=== PATIENT | female | born 1945 | race Caucasian/White ===

== ENCOUNTER 2017-09-29 07:47 | Observation (INO) | payer MEDICARE ==
[~2017-09-29] VITALS: Ht 162.6 cm; Wt 75.8 kg
[2017-09-29] MEDS: IPRATROPIUM BROMIDE 0.02% 2.5 ML NEB NEB SCH ×4 (01:30→19:00)
[~2017-09-29 07:47] MED LIST: COUMADIN5 MG PO; METOPROLOL SUCC25 MG PO; OMEPRAZOLE40 MG PO; SIMVASTATIN20 MG PO; SIMVISTATIN
[2017-09-29 08:15] LABS: BASOPHILS % 0.3 % (0.0-1.0); EOSINOPHILS # (AUTO) 0.1 (0.0-0.4); EOSINOPHILS % 1.3 % (0.0-6.0); HEMATOCRIT 41.5 % (34.2-44.1); HEMOGLOBIN 13.5 g/dL (12.0-16.0); LYMPHOCYTES # (AUTO) 1.8 (1.0-3.2); LYMPHOCYTES % 23.1 % (18.0-39.1); MEAN CORPUSCULAR HEMOGLOBIN 29.7 pg (28-32); MEAN CORPUSCULAR HGB CONC 32.5 g/dL (31-35); MEAN CORPUSCULAR VOLUME 91.2 fL (81-99); MONOCYTES # (AUTO) 0.5 (0.2-0.8); MONOCYTES % 6.7 % (4.4-11.3); NEUTROPHILS # (AUTO) 5.2 (2.1-6.9); NEUTROPHILS % 68.5 % (38.7-80.0); PLATELET COUNT 160 x10e3/uL (140-360); RED BLOOD COUNT 4.55 x10e6/uL (3.6-5.1); RED CELL DISTRIBUTION WIDTH 14.6 % (11.7-14.4)
[2017-09-29 08:26] LABS: INR 2.51; PROTHROMBIN TIME 28.4 seconds (11.9-14.5)
[2017-09-29 08:27] LABS: PARTIAL THROMBOPLASTIN TIME 40.8 seconds (23.8-35.5)
[2017-09-29 08:32] LABS: ANION GAP 12.9 mmol/L (8-16); BLOOD UREA NITROGEN 10 mg/dL (7-26); BUN/CREATININE RATIO 13 (6-25); CALCIUM 9.2 mg/dL (8.4-10.2); CARBON DIOXIDE 23 mmol/L (22-29); CHLORIDE 110 mmol/L (98-107); CREATINE KINASE 58 IU/L (29-168); CREATININE, SERUM 0.78 mg/dL (0.57-1.11); EST GLOMERULAR FILTRATION RATE > 60 ML/MIN (60-); GLUCOSE 100 mg/dL (74-118); POTASSIUM 3.9 mmol/L (3.5-5.1); SODIUM 142 mmol/L (136-145)
[2017-09-29 08:39] LABS: TROPONIN I 0.017 ng/mL (0-0.300)
[2017-09-29 08:41] LABS: BILIRUBIN,URINE NEGATIVE (NEGATIVE); KETONES,URINE NEGATIVE (NEGATIVE); LEUKOCYTE ESTERASE ,URINE NEGATIVE (NEGATIVE); NITRITE,URINE NEGATIVE (NEGATIVE); PROTEIN,URINE DIPSTICK NEGATIVE (NEGATIVE); URINE UROBILINOGEN 0.2 mg/dL (0.2 - 1)
[2017-09-29 09:08] LABS: CLARITY,URINE HAZY (CLEAR); COLOR,URINE YELLOW (YELLOW)
[2017-09-29 09:18] LABS: EPITHELIAL CELLS,URINE RARE /LPF; RBC,URINE 0-5 /HPF (0-5)
--- NOTE | 2017-09-29 09:41 | Diagnostic Imaging Report ---
PROCEDURE: Frontal and lateral views of the chest. COMPARISON: CT chest 09/04/2017. INDICATIONS: CHEST CONGESTION, SHORTNESS OF BREATH FINDINGS: Lines/tubes: None. Lungs: Bibasilar airspace opacities. No parenchymal mass. Pleura: There is no pleural effusion or pneumothorax. Heart and mediastinum: The heart and the mediastinum are normal. Atherosclerotic calcifications. Bones: No acute bony abnormality. Degenerative changes of the thoracic spine. Median sternotomy wires. IMPRESSION: Bibasilar airspace opacities may represent a developing pneumonia. Dictated by: Malachi Larsen M.D. on 09/29/2017 at 8:59 Electronically approved by: Malachi Larsen M.D. on 09/29/2017 at 8:59
[2017-09-29] MEDS ORDERED: AZITHROMYCIN 500MG/SOD CHL 0.9% 250ML BAG IV SCH (10:00)
[2017-09-29] MEDS ORDERED: CEFTRIAXONE SOD 1 GM VIAL IV SCH (10:30)
[2017-09-29] MEDS ORDERED: AZITHROMYCIN 500MG/NS 250 ML 250 ML IV SCH ×2 (11:00→11:15)
[2017-09-29] MEDS: AZITHROMYCIN 500MG/NS 250 ML 250 ML IV SCH (11:50)
[2017-09-29] MEDS: CEFTRIAXONE SOD 1 GM VIAL IV SCH (11:50)
[2017-09-29] MEDS: SODIUM CHLORIDE 0.9% 1000ML 1,000 ML IV SCH ×2 (11:50→17:27)
[2017-09-29] MEDS: ALBUTEROL SULF 0.083% NEB SOLN 3 ML NEB NEB SCH ×4 (12:16→23:30)
--- NOTE | 2017-09-29 14:28 | History and Physical ---
REASON FOR ADMISSION: This 72-year-old female comes with shortness of breath. HISTORY OF PRESENT ILLNESS: Ms. Essie Elmore has a history of coronary disease, atrial fibrillation, history of end-stage lung disease. She was in her usual state of health until last night. The patient started to have some increased shortness of breath and came to the hospital and was admitted for possible pneumonia or ILD. PAST MEDICAL HISTORY 1. History of atrial fibrillation. 2. History of coronary artery disease. 3. History of hypertension. 4. History of reflux esophagitis. 5. History of end-stage lung disease. Has been treated by Dr. Marinelli and Dr. Frankel, too. MEDICATIONS 1. Metoprolol 25 mg ER once a day. 2. Omeprazole 40 mg daily. 3. Simvastatin 20 mg daily. 4. Warfarin 5 mg daily. SURGICAL HISTORY: History of triple bypass for NC, also history of stent to the left femoral artery. The patient had a triple bypass in 1998, also fem-pop as mentioned above. REVIEW OF SYSTEMS: Negative for chest pain. Positive for some shortness of breath. Positive for no nausea or vomiting, no diarrhea, no constipation, no rectal bleeding. No hematochezia and no hematemesis either. SOCIAL HISTORY: No EtOH. No IV drug abuse. No smoking history, either. PHYSICAL EXAMINATION GENERAL: The patient is alert and oriented times 3. Not short of breath. She is doing fine right now. VITAL SIGNS: Temperature 97.8, pulse 93, respirations 16, blood pressure 129/79, pulse oximetry 92%. HEENT: Normocephalic and atraumatic. The pupils are reacting to light and accommodation. CV: S1 and S2 normal, regular rate and rhythm. ABDOMEN: Nontender and nondistended. LUNGS: Positive for crackles in the lower bases. EXTREMITIES: No clubbing, no cyanosis, no edema. LABORATORY VALUES: Hematology: White count was 7.63, RDW 14.6. Chemistry: Sodium 142, potassium 3.9, chloride 110. BNP was 244.3. BUN and creatinine within normal limits. Urine was also normal. Serology showed influenza type A and type B negative. ASSESSMENT: Questionable interstitial lung disease. History of questionable pneumonia. Will treat the patient as pneumonia. I have started the patient on azithromycin and Rocephin. Needs outpatient bronchoscopy. Will continue to monitor the patient here. medications have been stopped. Further recommendations per the clinical course. Will restart all other medications. Warfarin for atrial fibrillation. Also do PT and INR daily. Job#: [id number] MH
--- NOTE | 2017-09-29 14:55 | Consultation ---
DATE OF CONSULTATION: September 29, 2017 PULMONARY CONSULTATION REASON FOR CONSULTATION: Shortness of breath. HPI: Ms. Elmore is a 72-year-old female. She is a regular patient of Dr. Marinelli for possibility of interstitial lung disease. She presented to the emergency room with the complaints of shortness of breath getting worse overnight associated with nasal stuffiness and coughing. Patient has undiagnosed ILD and was mosaic pattern on the CT scan with lymphadenopathy, which is being worked up as an outpatient. She was supposed to see me for of the lymph node next week. She denies any chest pain, nausea, vomiting, diarrhea, or focal weakness. REVIEW OF SYSTEMS GENERAL: Denies any fever or chills. HEENT: Head: Denies any head trauma or head injury. ENT: Denies any earache, nosebleed or throat pain. CV: Denies any chest pain. RESPIRATORY: The patient has shortness of breath. GI: Denies any nausea or vomiting. MUSCULOSKELETAL: Denies any arthralgias or myalgias. NEURO: Denies any focal weakness. Rest of the review of systems are negative except as in HPI. PAST MEDICAL HISTORY: Per the chart. 1. History of atrial fibrillation. Patient had a recent stress test and metoprolol was increased. 2. Hypertension. 3. Hyperlipidemia. 4. Coronary artery disease. FAMILY HISTORY: Coronary artery disease, status post CABG in 1998. Stents in the iliac artery in July 1999. PAST SURGICAL HISTORY: Cholecystectomy in December of 2010. SOCIAL HISTORY: She does not smoke. Does not drink. She lives with her daughter. PHYSICAL EXAMINATION VITAL SIGNS: Temperature 97.8, pulse 93, blood pressure 135/86, and O2 sat 96% on room air. SKIN: Warm and dry. GENERAL: She is an elderly female in mild respiratory distress. She is awake, alert and following commands. Responds to questions appropriately. HEENT: Head is atraumatic and normocephalic. Pupils are reactive. NECK: Supple with no JVD. CHEST: Crackles in the bases. HEART: S1 and S2 audible. ABDOMEN: Soft, nontender and nondistended. EXTREMITIES: No clubbing, cyanosis or edema. NEUROLOGIC: Awake and alert. LABS: White count of 7.6, hemoglobin 13.5 and platelets 160,000. Chemistry: Sodium 142, potassium 3.9, chloride 110, bicarb 23, BUN 10, creatinine 0.78. BNP is only 244. Chest x-ray done today showing right middle lobe infiltrate. Her previous chest x-ray is from 2010, which is normal. She had a CT of the chest done on September 04, 2017, which is showing mosaic pattern and evidence of some fibrosis, not classic UIP pattern with right lower paratracheal lymphadenopathy. I have compared that film to the CT of the chest, which was done in January of 2016. It is also showing mosaic pattern in the right lower paratracheal lymph note, but not significantly enlarged. ASSESSMENT AND PLAN: Ms. Elmore is a 72-year-old female presenting with worsening shortness of breath and cough. She has underlying interstitial lung disease. I have reviewed the computerized tomography of the chest films from 2014 up until now, and she has a mosaic pattern and evidence of fibrosis, which is not classic UIP. This has for the most part remained changed. However, there is new lymph nodes and lymphadenopathy, which is there. At this point, it seems like that the patient probably has a superimposed pneumonia on her interstitial lung disease. She lives at home. CURRENT PROBLEMS 1. Likely community-acquired pneumonia superimposed on baseline interstitial lung disease. 2. Mediastinal lymphadenopathy: The differential in this pattern could be sarcoidosis. 3. History of coronary artery disease. 4. Atrial fibrillation, currently stable. 5. Remote history of coronary artery bypass graft. PLAN 1. Agree with IV Rocephin and azithromycin to cover community-acquired pneumonia. 2. I will discontinue the IV fluids. 3. Nebulizer treatment. 4. Possibly will be giving a low-dose of Lasix to her as her BNP is slightly on the higher side and she may have some fluid overload. 5. Once she is improved, she can be discharged home. I will do a biopsy and endobronchial ultrasound-guided biopsy at [facility] at a later date. Plan was discussed with Dr. Clinton, who is the primary care physician taking care of the patient. Thank you for this consult. Job#: [id number] CRAIG
[2017-09-29 19:43] VITALS: BP 141/93
[2017-09-29] MEDS: METHYLPREDNISOLONE SOD SUCC 40 MG/ML VIAL IV SCH (20:15)
[2017-09-29] MEDS: SIMVASTATIN 20 MG TAB PO SCH (20:15)
[2017-09-30] VITALS: BP 146/73
[2017-09-30] MEDS: SODIUM CHLORIDE 0.9% 1000ML 1,000 ML IV SCH (01:41)
[2017-09-30 04:00] VITALS: BP 117/60
[2017-09-30 06:15] LABS: BASOPHILS % 0.1 % (0.0-1.0); HEMOGLOBIN 12.9 g/dL (12.0-16.0); LYMPHOCYTES % 15.2 % (18.0-39.1); MEAN CORPUSCULAR HEMOGLOBIN 29.8 pg (28-32); MEAN CORPUSCULAR HGB CONC 32.3 g/dL (31-35); MEAN CORPUSCULAR VOLUME 92.4 fL (81-99); MONOCYTES # (AUTO) 0.2 (0.2-0.8); MONOCYTES % 2.8 % (4.4-11.3); NEUTROPHILS # (AUTO) 5.5 (2.1-6.9); NEUTROPHILS % 81.6 % (38.7-80.0); PLATELET COUNT 145 x10e3/uL (140-360); RED BLOOD COUNT 4.33 x10e6/uL (3.6-5.1); RED CELL DISTRIBUTION WIDTH 14.3 % (11.7-14.4)
[2017-09-30] MEDS ORDERED: SODIUM CHLORIDE 0.9% 250ML 250 ML ONE (06:20)
--- NOTE | 2017-09-30 06:26 | Diagnostic Imaging Report ---
CHEST SINGLE (PORTABLE), 09/30/2017 5:00 AM Technique: CHEST SINGLE (PORTABLE) Comparison: 09/29/2017 Clinical history: Pneumonia Findings: See Impression Impression: 1. Stable mildly enlarged cardiac silhouette post sternotomy. 2. Stable coarse bilateral opacities in keeping with fibrosis. No new consolidation. 3. No effusion or pneumothorax. Signed by: Dr Cris Estes MD on 09/30/2017 6:23 AM
[2017-09-30 06:30] LABS: ANION GAP 14.2 mmol/L (8-16); BLOOD UREA NITROGEN 11 mg/dL (7-26); BUN/CREATININE RATIO 14 (6-25); CALCIUM 9.2 mg/dL (8.4-10.2); CARBON DIOXIDE 20 mmol/L (22-29); CHLORIDE 111 mmol/L (98-107); CREATININE, SERUM 0.78 mg/dL (0.57-1.11); EST GLOMERULAR FILTRATION RATE > 60 ML/MIN (60-); GLUCOSE 138 mg/dL (74-118); POTASSIUM 4.2 mmol/L (3.5-5.1); SODIUM 141 mmol/L (136-145)
[2017-09-30 06:56] LABS: INR 2.03
[2017-09-30 07:18] VITALS: BP 131/70
[2017-09-30] MEDS: ALBUTEROL SULF 0.083% NEB SOLN 3 ML NEB NEB SCH ×5 (08:00→21:15)
[2017-09-30] MEDS: IPRATROPIUM BROMIDE 0.02% 2.5 ML NEB NEB SCH ×3 (08:00→21:13)
[2017-09-30] MEDS ORDERED: METOPROLOL SUCCINATE 25 MG TAB XL PO SCH (09:00)
[2017-09-30] MEDS: PANTOPRAZOLE SOD 40 MG TABEC PO SCH (09:00)
[2017-09-30] MEDS: METOPROLOL SUCCINATE 50 MG TAB XL PO SCH (09:15)
[2017-09-30] MEDS: METHYLPREDNISOLONE SOD SUCC 40 MG/ML VIAL IV SCH (09:15)
[2017-09-30] MEDS: FUROSEMIDE INJ 10 MG/ML 2 ML VIAL IV SCH (09:15)
[2017-09-30] MEDS: CEFTRIAXONE SOD 1 GM VIAL IV SCH (11:13)
[2017-09-30] MEDS: AZITHROMYCIN 500MG/NS 250 ML 250 ML IV SCH (11:13)
[2017-09-30 11:30] VITALS: BP 124/66
[2017-09-30 15:23] VITALS: BP 132/62
[2017-09-30] MEDS ORDERED: WARFARIN SOD 5 MG TAB PO SCH (17:00)
[2017-09-30 19:05] VITALS: BP 124/60
[2017-09-30] MEDS ORDERED: METOPROLOL SUCCINATE 50 MG TAB XL PO SCH (21:00)
[2017-09-30] MEDS: SIMVASTATIN 20 MG TAB PO SCH (21:00)
[2017-10-01] VITALS: BP 111/57
[2017-10-01] MEDS: IPRATROPIUM BROMIDE 0.02% 2.5 ML NEB NEB SCH ×2 (01:00→08:35)
[2017-10-01] MEDS: ALBUTEROL SULF 0.083% NEB SOLN 3 ML NEB NEB SCH ×2 (03:00→08:35)
[2017-10-01 06:00] VITALS: BP 132/95
[2017-10-01 07:06] LABS: INR 2.07; PROTHROMBIN TIME 24.4 seconds (11.9-14.5)
[2017-10-01 07:47] VITALS: BP 124/66
[2017-10-01] MEDS: METOPROLOL SUCCINATE 50 MG TAB XL PO SCH (08:08)
[2017-10-01] MEDS: PANTOPRAZOLE SOD 40 MG TABEC PO SCH (08:08)
[2017-10-01] MEDS: FUROSEMIDE INJ 10 MG/ML 2 ML VIAL IV SCH (08:08)
[2017-10-01] MEDS ORDERED: PREDNISONE 20 MG TAB PO SCH (09:00)
[2017-10-01] MEDS ORDERED: LEVAQUIN500 MG PO (10:03)
[2017-10-01 11:45] VITALS: BP 152/75
== END 2017-10-01 11:59 | disposition home or self-care (01) ==
LOC: ER 07:47 → ERHOLD 11:14 → IMCU 19:30
PROVIDERS: ADMIT Family Medicine; ATTEND Family Medicine
DX: J15.9 Unspecified bacterial pneumonia (principal); J84.9 Interstitial pulmonary disease, unspecified; I48.91 Unspecified atrial fibrillation; I10 Essential (primary) hypertension; R59.1 Generalized enlarged lymph nodes; I25.10 Atherosclerotic heart disease of native coronary artery without angina pectoris; Z95.1 Presence of aortocoronary bypass graft
CPT/HCPCS: 36415 ×3; 71010; 71020; 80048 ×2; 81001; 82550; 82553; 83880; 84484; 85025 ×2; 85610 ×3; 85730; 87040; 87086; 87400; 93005; 94640 ×3; 99284; G0378 ×3; J0456 ×2; J0696 ×2; J1940; J2920 ×2; J7030 ×2; J7050

== ENCOUNTER → 2017-10-22 | Outpatient (CLI) | payer MEDICARE ==
[~2017-10-22] MED LIST changes: +LEVAQUIN500 MG PO
--- NOTE | 2017-10-22 16:24 | Diagnostic Imaging Report ---
PROCEDURE: Frontal and lateral views of the chest. COMPARISON: Patients [facility], , CHEST 2 VIEWS, 09/29/2017, 8:37. INDICATIONS: COUGH, SHORTNESS OF BREATH FINDINGS: Lines/tubes: None. Lungs: Coarsening of the pulmonary interstitium particularly in the lower lobes is observed. Pleura: There is no pleural effusion or pneumothorax. Heart and mediastinum: The cardiac silhouette is mildly enlarged. Ossification of aortic arch. Median sternotomy wires. Bones: No acute bony abnormality. Mild kyphosis of the thoracic spine with mild anterior wedging of multiple mid to lower thoracic vertebral bodies, particularly T11 and T8, unchanged.. IMPRESSION: 1. No significant interval change in findings consistent with interstitial lung disease/fibrosis predominantly involving the lower lobes. Andrew Chacon M.D. Dictated by: Andrew Chacon M.D. on 10/22/2017 at 16:32 Electronically approved by: Andrew Chacon M.D. on 10/22/2017 at 16:32
== END ==
LOC: RAD 14:03
PROVIDERS: ATTEND Internal Medicine
DX: R09.89 Other specified symptoms and signs involving the circulatory and respiratory systems (principal)
CPT/HCPCS: 71020

== ENCOUNTER 2017-10-23 06:28 | Inpatient (IN) | payer MEDICARE ==
[~2017-10-23] VITALS: Ht 160 cm; Wt 72.7 kg
[2017-10-23] VITALS (7 sets, daily range): BP systolic 131–156; BP diastolic 67–76
[2017-10-23] MEDS ORDERED: ALBUTEROL SULF 0.083% NEB SOLN 3 ML NEB NEB STA (06:44)
[2017-10-23] MEDS ORDERED: IPRATROPIUM BROMIDE 0.02% 2.5 ML NEB NEB ONE (06:45)
[2017-10-23] MEDS ORDERED: METHYLPREDNISOLONE SOD SUCC 125 MG/2ML VIAL IV STA (06:48)
[2017-10-23] MEDS ORDERED: PIPER-TAZ 3.375 GM 50 ML IV SCH (07:30)
[2017-10-23] MEDS ORDERED: ONDANSETRON HCL INJ 2 MG/ML VIAL IV PRN (07:30)
[2017-10-23 07:42] LABS: BASOPHILS % 0.3 % (0.0-1.0); EOSINOPHILS # (AUTO) 0.2 (0.0-0.4); EOSINOPHILS % 2.1 % (0.0-6.0); HEMATOCRIT 37.6 % (34.2-44.1); LYMPHOCYTES # (AUTO) 2.1 (1.0-3.2); MEAN CORPUSCULAR HEMOGLOBIN 29.3 pg (28-32); MEAN CORPUSCULAR HGB CONC 31.9 g/dL (31-35); MEAN CORPUSCULAR VOLUME 91.9 fL (81-99); MONOCYTES # (AUTO) 0.6 (0.2-0.8); MONOCYTES % 8.1 % (4.4-11.3); NEUTROPHILS # (AUTO) 4.9 (2.1-6.9); NEUTROPHILS % 62.1 % (38.7-80.0); PLATELET COUNT 159 x10e3/uL (140-360); RED BLOOD COUNT 4.09 x10e6/uL (3.6-5.1)
[2017-10-23 07:54] LABS: INR 1.03; PARTIAL THROMBOPLASTIN TIME 27.9 seconds (23.8-35.5)
--- NOTE | 2017-10-23 08:12 | Diagnostic Imaging Report ---
PROCEDURE: CHEST SINGLE (PORTABLE) COMPARISON: 10/22/2017. INDICATIONS: SHORTNESS OF BREATH FINDINGS: Lungs remain well-inflated with stable coarse interstitial prominence predominantly within the lung bases. No new consolidation or effusion. Stable cardiomediastinal contour with post surgical changes in the mediastinum. Tortuosity and atherosclerotic calcification of the thoracic aorta. No acute osseous abnormality. CONCLUSION: No appreciable interval change relative to 10/22/2017. Persistent findings suggestive of lower lobe predominant interstitial lung disease. Dictated by: Arnaud Raygoza M.D. on 10/23/2017 at 8:21 Electronically approved by: Arnaud Raygoza M.D. on 10/23/2017 at 8:21
[2017-10-23 08:18] LABS: BILIRUBIN,URINE NEGATIVE (NEGATIVE); KETONES,URINE NEGATIVE (NEGATIVE); LEUKOCYTE ESTERASE ,URINE NEGATIVE (NEGATIVE); NITRITE,URINE NEGATIVE (NEGATIVE); PROTEIN,URINE DIPSTICK NEGATIVE (NEGATIVE); URINE UROBILINOGEN 0.2 mg/dL (0.2 - 1)
[2017-10-23 08:19] LABS: CLARITY,URINE CLEAR (CLEAR); COLOR,URINE YELLOW (YELLOW)
[2017-10-23] MEDS ORDERED: ALBUTEROL/IPRATROPIUM 3 ML NEB NEB PRN (08:30)
[2017-10-23] MEDS ORDERED: AZITHROMYCIN 250 MG TAB PO NR (08:30)
[2017-10-23] MEDS ORDERED: WARFARIN SOD 2.5 MG TAB PO NR (09:00)
[2017-10-23] MEDS ORDERED: METOPROLOL SUCCINATE 50 MG TAB XL PO SCH (09:00)
[2017-10-23] MEDS ORDERED: METOPROLOL SUCCINATE 25 MG TAB XL PO SCH (09:00)
--- NOTE | 2017-10-23 09:03 | Consultation ---
DATE OF CONSULTATION: October 23, 2017 PULMONARY CONSULTATION A [facility] 72-year-old woman admitted with shortness of breath, cough and unable to fall asleep. History of EBUS biopsied Thursday, which was well tolerated. Had an enlarged lymph node. She became short of breath on October 21, 2017. She was seen in the office on October 22, 2017, and was given antibiotics, but came back to the emergency room the evening unable to sleep. Has a history of chronic atrial fibrillation, history of atherosclerotic heart disease, gastroesophageal reflux, tiny solitary nodule, pulmonary fibrosis. MEDICATIONS: Have included albuterol, Lasix, metoprolol, nitroglycerin, Prilosec, potassium, Zocor, and warfarin. ALLERGIES: SHE IS ALLERGIC TO IODINE. She has had a compression fracture at T10. She has had coronary bypass surgery and cholecystectomy. FAMILY HISTORY: Positive arthritis. Works as a banker. She is a former smoker and smoked a pack a day for 35 years. PHYSICAL EXAMINATION VITALS: Temperature 98.4, pulse 70 and irregular, respirations 22, blood pressure 130/60. HEENT: Head is normocephalic and atraumatic. Eyes: Extraocular muscles intact. LUNGS: Bilateral rales. HEART: Irregularly irregular rhythm. ABDOMEN: Nontender. EXTREMITIES: Not edematous. O2 saturation on monitor is reading 86%. PLAN: Supplemental oxygen. Await transbronchial needle biopsy. Continue bronchodilators. Moderate dose steroids. Empiric antibiotics. Patient will likely require home oxygen. Thank you for this kind referral. Job#: [id number] SD
[2017-10-23] MEDS: PANTOPRAZOLE SOD 40 MG TABEC PO SCH (09:27)
[2017-10-23 09:44] LABS: ALANINE AMINOTRANSFERASE 32 IU/L (0-55); ALBUMIN 3.7 g/dL (3.5-5.0); ALKALINE PHOSPHATASE 134 IU/L (40-150); ANION GAP 14.9 mmol/L (8-16); BLOOD UREA NITROGEN 14 mg/dL (7-26); BUN/CREATININE RATIO 17 (6-25); CALCIUM 9.3 mg/dL (8.4-10.2); CARBON DIOXIDE 23 mmol/L (22-29); CHLORIDE 108 mmol/L (98-107); CREATINE KINASE 37 IU/L (29-168); CREATININE, SERUM 0.83 mg/dL (0.57-1.11); EST GLOMERULAR FILTRATION RATE > 60 ML/MIN (60-); GLUCOSE 113 mg/dL (74-118); MAGNESIUM 1.5 MG/DL (1.3-2.1); POTASSIUM 3.9 mmol/L (3.5-5.1); SODIUM 142 mmol/L (136-145)
[2017-10-23] MEDS ORDERED: SODIUM CHLORIDE 0.9% 250ML 250 ML ONE (12:18)
[2017-10-23] MEDS: PREDNISONE 20 MG TAB PO SCH (12:35)
[2017-10-23] MEDS: PIPER-TAZ 3.375 GM 50 ML IV SCH ×2 (14:00→20:42)
[2017-10-23] MEDS: ALBUTEROL/IPRATROPIUM 3 ML NEB NEB SCH ×2 (14:00→20:10)
[2017-10-23] MEDS: WARFARIN SOD 5 MG TAB PO SCH (17:00)
[2017-10-23 17:40] LABS: CREATINE KINASE MB 1.6 ng/mL (0.00-5.00)
[2017-10-23] MEDS: SIMVASTATIN 20 MG TAB PO SCH (20:42)
[2017-10-24] VITALS (8 sets, daily range): BP systolic 108–150; BP diastolic 57–84
[2017-10-24 00:44] LABS: CREATINE KINASE MB 2.1 ng/mL (0.00-5.00)
[2017-10-24] MEDS: ALBUTEROL/IPRATROPIUM 3 ML NEB NEB SCH ×4 (00:50→20:40)
[2017-10-24] MEDS: PIPER-TAZ 3.375 GM 50 ML IV SCH ×4 (01:12→20:04)
[2017-10-24 05:58] LABS: HEMATOCRIT 34.3 % (34.2-44.1); LYMPHOCYTES # (AUTO) 1.1 (1.0-3.2); LYMPHOCYTES % 12.8 % (18.0-39.1); MEAN CORPUSCULAR HEMOGLOBIN 29.5 pg (28-32); MEAN CORPUSCULAR HGB CONC 32.1 g/dL (31-35); MONOCYTES # (AUTO) 0.6 (0.2-0.8); MONOCYTES % 6.8 % (4.4-11.3); NEUTROPHILS # (AUTO) 6.8 (2.1-6.9); NEUTROPHILS % 79.7 % (38.7-80.0); PLATELET COUNT 151 x10e3/uL (140-360); RED BLOOD COUNT 3.73 x10e6/uL (3.6-5.1)
[2017-10-24 06:20] LABS: ALANINE AMINOTRANSFERASE 20 IU/L (0-55); ALBUMIN/GLOBULIN RATIO 0.9 (0.8-2.0); ALKALINE PHOSPHATASE 105 IU/L (40-150); BLOOD UREA NITROGEN 12 mg/dL (7-26); BUN/CREATININE RATIO 15 (6-25); CALCIUM 8.9 mg/dL (8.4-10.2); CARBON DIOXIDE 24 mmol/L (22-29); CHLORIDE 109 mmol/L (98-107); CHOL/HDL RATIO 2.8 (3.0-3.6); CHOLESTEROL 135 MD/DL (0-199); CREATININE, SERUM 0.79 mg/dL (0.57-1.11); EST GLOMERULAR FILTRATION RATE > 60 ML/MIN (60-); GLUCOSE 138 mg/dL (74-118); HDL CHOLESTEROL 48 MG/DL (40-60); LDL CHOLESTEROL 74 MG/DL (60-130); SODIUM 143 mmol/L (136-145); TRIGLYCERIDES 67 MG/DL (0-149)
--- NOTE | 2017-10-24 06:56 | Diagnostic Imaging Report ---
EXAMINATION: CHEST SINGLE (PORTABLE) INDICATION: UIP (usual interstitial pneumonitis) COMPARISON: 09/30/2017 CT of the chest on 06/04/2015 FINDINGS: TUBES and LINES: None. LUNGS: Lungs are not well inflated. Diffuse interstitial changes bilaterally, less conspicuous than previous examination. PLEURA: No pleural effusion or pneumothorax. HEART AND MEDIASTINUM: Cardiac size is mildly enlarged. There are atherosclerotic calcifications within the aorta. BONES AND SOFT TISSUES: No acute osseous lesion. Soft tissues are unremarkable. UPPER ABDOMEN: No free air under the diaphragm. IMPRESSION: Findings are compatible with stable pulmonary fibrosis. Superimposed CHF cannot be excluded. Signed by: Dr. Brien Tovar M.D. on 10/24/2017 6:53 AM
[2017-10-24] MEDS: PANTOPRAZOLE SOD 40 MG TABEC PO SCH (08:44)
[2017-10-24] MEDS: PREDNISONE 20 MG TAB PO SCH ×2 (08:44→12:02)
[2017-10-24] MEDS: AZITHROMYCIN 250 MG TAB PO SCH (08:44)
[2017-10-24] MEDS: METOPROLOL SUCCINATE 50 MG TAB XL PO SCH (08:44)
--- NOTE | 2017-10-24 15:50 | Consultation ---
DATE OF CONSULTATION: CARDIOLOGY CONSULTATION ATTENDING PHYSICIAN: Dr. Bebo Clinton. CLINICAL HISTORY: This is a 72-year-old white woman known to our service from previous evaluations by Dr. Himanshu Frankel. Referred by Dr. Bebo Clinton for cardiovascular evaluation in the setting of shortness of breath. This patient has history of atrial fibrillation, but the rate is well controlled. Recently she was hospitalized because of pneumonia and underwent outpatient bronchoscopy subsequently. Following the bronchoscopy, she was stable, having been seen in Dr. Bundy's office. The following days, however, she became more short of breath, coughed up brownish sputum. Came back to the emergency room, was hospitalized. There is concern that she may have congestive heart failure. Previous workup included nuclear stress test dating back to 2015, showed only small apical scar with ejection fraction of 75%. She is said to have had previous myocardial infarction. She had a repeat nuclear stress test in the office about a month or 2 ago. The result is unknown to me at this time. In any case, she denies any chest pains, syncope. She has resumed Coumadin 5 mg per day and has had no worsening bleeding. PAST MEDICAL HISTORY: Also remarkable for hypertension, reflux esophagitis. MEDICATIONS AT HOME: Include levofloxacin, metoprolol succinate 25 mg daily, omeprazole 40 mg daily, simvastatin 20 mg per day, and Coumadin 5 mg daily. PERSONAL AND SOCIAL HISTORY: She denies smoking, drinking, drug abuse. There is no previous history of smoking. PAST SURGERY: Included a bypass surgery for myocardial infarction, a history of a left femoral artery stent, and a femoral popliteal bypass. REVIEW OF SYSTEMS: Noncontributory. PHYSICAL EXAMINATION: GENERAL: She is alert, coherent, appears to be comfortable. CARDIAC: Jugular veins were not distended. S1 and S2 were regular. There are no appreciable murmurs. LUNGS: Showed diminished breath sounds but no wheezing. ABDOMEN: Soft. Bowel sounds are present. EXTREMITIES: Showed no cyanosis, clubbing or edema. LABORATORY STUDIES: Previous pulmonary function study done in July 2016 showed restrictive lung disease blamed on obesity, et cetera. IMPRESSION: 1. Shortness of breath, most likely to be pulmonary in origin with history of pulmonary fibrosis and tiny pulmonary nodule, status post bronchoscopy and recent treatment for pneumonia. 2. History of myocardial infarction, coronary artery bypass surgery in the distant past without any new complaints of chest pains and with recent nuclear stress test and with previous nuclear stress test showing ejection fraction of 75% with small apical scar. 3. Chronic atrial fibrillation. Returning back on anticoagulants following bronchoscopy. 4. Hyperlipidemia. 5. Reflux esophagitis. 6. Peripheral vascular disease, status post previous left femoral artery stent and femoral popliteal bypass. 7. No previous history of smoking. RECOMMENDATION: Continue cardiac . Job#: [id number] EV
[2017-10-24] MEDS: WARFARIN SOD 5 MG TAB PO SCH (17:07)
[2017-10-24] MEDS ORDERED: ACETAMINOPHEN 325 MG TAB PO PRN (17:15)
[2017-10-24] MEDS: SIMVASTATIN 20 MG TAB PO SCH (20:04)
[2017-10-25] VITALS (7 sets, daily range): BP systolic 124–158; BP diastolic 71–90
[2017-10-25] MEDS: PIPER-TAZ 3.375 GM 50 ML IV SCH ×4 (02:18→20:00)
[2017-10-25] MEDS: ALBUTEROL/IPRATROPIUM 3 ML NEB NEB SCH ×3 (03:00→19:45)
[2017-10-25] MEDS: AZITHROMYCIN 250 MG TAB PO SCH (08:34)
[2017-10-25] MEDS: PANTOPRAZOLE SOD 40 MG TABEC PO SCH (08:34)
[2017-10-25] MEDS: METOPROLOL SUCCINATE 50 MG TAB XL PO SCH (08:34)
[2017-10-25] MEDS: PREDNISONE 20 MG TAB PO SCH ×2 (08:34→11:56)
[2017-10-25] MEDS: WARFARIN SOD 5 MG TAB PO SCH (16:29)
[2017-10-25] MEDS: SIMVASTATIN 20 MG TAB PO SCH (20:54)
[2017-10-26] VITALS: BP 133/63
[2017-10-26] MEDS: PIPER-TAZ 3.375 GM 50 ML IV SCH ×2 (02:00→07:31)
[2017-10-26] MEDS: ALBUTEROL/IPRATROPIUM 3 ML NEB NEB SCH ×2 (02:27→07:45)
[2017-10-26 04:00] VITALS: BP 155/84
[2017-10-26 05:46] VITALS: BP 155/84
[2017-10-26 06:56] LABS: INR 1.98; PROTHROMBIN TIME 23.6 seconds (11.9-14.5)
[2017-10-26] MEDS: PREDNISONE 20 MG TAB PO SCH (07:31)
[2017-10-26] MEDS: PANTOPRAZOLE SOD 40 MG TABEC PO SCH (07:31)
[2017-10-26] MEDS: AZITHROMYCIN 250 MG TAB PO SCH (07:31)
[2017-10-26] MEDS: METOPROLOL SUCCINATE 50 MG TAB XL PO SCH (07:31)
[2017-10-26 07:56] VITALS: BP 168/96
--- NOTE | 2017-12-17 16:27 | Discharge Summary ---
HOSPITAL COURSE: Patient came into the hospital for shortness of breath and patient was found to have pulmonary fibrosis and hypoxia, and a consult with Dr. Bundy was done. Patient was started on empiric antibiotics, oxygen, and also patient had a lung nodule and was awaiting a transbronchial needle biopsy. We continued moderate dose of steroids and antibiotic as mentioned above. The patient was feeling better the second day, and we will continue on her regular home medications for hypertension and hyperlipidemia and also the patient is on warfarin, we will monitor INR continuously. Patient's BNP was slightly increased at about 200. Lasix was also initiated. Also consult with Dr. Banegas, her manufacturing development engineer, was done. Patient as mentioned above did better. Hypoxia got better and the patient is discharged to home. FINAL DIAGNOSES 1. Pulmonary fibrosis, interstitial lung disease exacerbation. 2. Pneumonia. 3. History of hyperlipidemia. 4. History of hypertension. We will continue to monitor the patient on an outpatient basis. Patient did need an endobronchial biopsy for the mass/lymph node present in her lung and that should be done as an outpatient basis. For further information, look into the chart and medicines on discharge, look into medical reconciliation sheet. WEST RIVERA MD Job#: [id number] [facility]
== END 2017-10-26 10:30 | disposition home or self-care (01) | DRG 197 ==
LOC: ER 06:28 → ERHOLD 07:30 → MED/SURG 09:30
PROVIDERS: ADMIT Family Medicine; ATTEND Family Medicine
DX: J84.10 Pulmonary fibrosis, unspecified (principal); J44.1 Chronic obstructive pulmonary disease with (acute) exacerbation; I48.92 Unspecified atrial flutter; I48.2 Chronic atrial fibrillation; K21.0 Gastro-esophageal reflux disease with esophagitis; I73.9 Peripheral vascular disease, unspecified; I25.2 Old myocardial infarction; Z95.1 Presence of aortocoronary bypass graft; I25.10 Atherosclerotic heart disease of native coronary artery without angina pectoris; Z95.820 Peripheral vascular angioplasty status with implants and grafts
CPT/HCPCS: 36415; 71045; 71046; 80053; 80061; 81001; 82550; 82553; 83735; 83880; 84484; 85025; 85610; 85730; 87040; 87086; 93005; 94640; 96367; 97139; 99284; J2543; J2930; J7050

== ENCOUNTER → 2017-12-14 | Outpatient (CLI) | payer MEDICARE ==
--- NOTE | 2017-12-14 17:33 | Diagnostic Imaging Report ---
PROCEDURE:CT CHEST WITHOUT CONTRAST COMPARISON:CT chest 09/04/17, CT chest 07/07/16 INDICATIONS:PULMONARY FIBROSIS TECHNIQUE:2.5 mm axial images of the chest were obtained from lung apices through the adrenal glands. No intravenous contrast was administered. DLP: 438.03 mGy*cm FINDINGS: LUNGS:Diffuse hyperinflation is stable with scattered areas of air trapping. Interstitial thickening is redemonstrated in an apical to basilar gradient. No consolidation. No discrete soft tissue mass. A band of discoid atelectasis in the inferior left upper lobe is stable. Airways: Mild bronchiectasis in the areas of fibrosis are stable. The trachea is normal in morphology. No intraluminal filling defects. LYMPH NODES: No enlarged axillary or supraclavicular lymph nodes. Right paratracheal lymph nodes remain prominent measuring up to 1.8 x 1.6 cm. Subcarinal lymph node measures 1.3 cm in AP dimension and is stable. No enlarged hilar lymph nodes given the lack of intravenous contrast. THYROID/BASE OF NECK: Unremarkable. VASCULATURE:Diffuse calcifications of the aorta and coronary arteries. No aneurysmal dilatation. Main pulmonary artery measures 3.3 cm in diameter and is stable. MEDIASTINUM: The heart is enlarged. No pericardial effusion. The esophagus is normal. PLEURA:No pleural thickening or pleural-based mass. No pneumothorax. CHEST WALL:No soft tissue mass. LIMITED ABDOMEN:Diffuse fatty atrophy of the pancreas. The gallbladder is absent. No mass in the visualized portions of the abdomen. BONES:Diffusely demineralized. Median sternotomy is well healed. There are healed left rib fractures. Compression fractures of T7, T10, and T11 are stable. Mild superior endplate compression of T5 is stable. There are no destructive lesions. OTHER:Normal. CONCLUSION: 1. No progression of pulmonary fibrosis. No pulmonary mass. 2. Stable mediastinal lymphadenopathy. 3. Enlarged main pulmonary artery suggestive of pulmonary artery hypertension. 4. Stable cardiomegaly and postoperative changes in the mediastinum. 5. Stable thoracic compression fractures. Dictated by: Juan Miguel Garza M.D. on 12/14/2017 at 17:33 Electronically approved by: Juan Miguel Garza M.D. on 12/14/2017 at 17:33
== END | disposition home or self-care (01) ==
LOC: CT 13:26
PROVIDERS: ATTEND Internal Medicine Pulmonary Disease
DX: J84.10 Pulmonary fibrosis, unspecified (principal); I25.10 Atherosclerotic heart disease of native coronary artery without angina pectoris; I48.91 Unspecified atrial fibrillation; K21.9 Gastro-esophageal reflux disease without esophagitis; R91.1 Solitary pulmonary nodule; Z95.1 Presence of aortocoronary bypass graft; Z87.891 Personal history of nicotine dependence; J44.9 Chronic obstructive pulmonary disease, unspecified; R59.0 Localized enlarged lymph nodes; I51.7 Cardiomegaly; M48.54XG Collapsed vertebra, not elsewhere classified, thoracic region, subsequent encounter for fracture with delayed healing
CPT/HCPCS: 71250

== ENCOUNTER 2018-06-11 22:10 | Inpatient (IN) | payer MEDICARE ==
[~2018-06-11] VITALS: Ht 160 cm; Wt 78.1 kg
[2018-06-11 23:00] VITALS: BP 141/78
[2018-06-11] MEDS ORDERED: ACETAMINOPHEN 325 MG TAB PO PRN (23:30)
[2018-06-11] MEDS: SODIUM CHLORIDE 0.9% 1000ML 1,000 ML IV SCH (23:30)
[2018-06-11] MEDS: CEFTRIAXONE SOD 1 GM VIAL IV SCH (23:30)
[2018-06-11] MEDS: AZITHROMYCIN 500MG/NS 250 ML 250 ML IV SCH (23:30)
[2018-06-12] VITALS (7 sets, daily range): BP systolic 111–141; BP diastolic 56–83
[2018-06-12] MEDS: ALBUTEROL SULF 0.083% NEB SOLN 3 ML NEB NEB SCH ×4 (02:05→19:25)
[2018-06-12 05:19] LABS: BASOPHILS % 0.4 % (0.0-1.0); EOSINOPHILS # (AUTO) 0.1 (0.0-0.4); EOSINOPHILS % 1.2 % (0.0-6.0); HEMATOCRIT 32.7 % (34.2-44.1); HEMOGLOBIN 10.5 g/dL (12.0-16.0); LYMPHOCYTES # (AUTO) 1.5 (1.0-3.2); LYMPHOCYTES % 21.9 % (18.0-39.1); MEAN CORPUSCULAR HEMOGLOBIN 29.9 pg (28-32); MEAN CORPUSCULAR HGB CONC 32.1 g/dL (31-35); MEAN CORPUSCULAR VOLUME 93.2 fL (81-99); MONOCYTES # (AUTO) 0.7 (0.2-0.8); MONOCYTES % 9.9 % (4.4-11.3); NEUTROPHILS # (AUTO) 4.4 (2.1-6.9); PLATELET COUNT 193 x10e3/uL (140-360); RED BLOOD COUNT 3.51 x10e6/uL (3.6-5.1)
[2018-06-12 05:47] LABS: ALANINE AMINOTRANSFERASE 13 IU/L (0-55); ALBUMIN 2.6 g/dL (3.5-5.0); ALBUMIN/GLOBULIN RATIO 0.9 (0.8-2.0); ALKALINE PHOSPHATASE 89 IU/L (40-150); ANION GAP 12.1 mmol/L (8-16); BLOOD UREA NITROGEN 11 mg/dL (7-26); BUN/CREATININE RATIO 14 (6-25); CALCIUM 8.4 mg/dL (8.4-10.2); CARBON DIOXIDE 21 mmol/L (22-29); CHLORIDE 112 mmol/L (98-107); CREATININE, SERUM 0.78 mg/dL (0.57-1.11); EST GLOMERULAR FILTRATION RATE > 60 ML/MIN (60-); GLUCOSE 95 mg/dL (74-118); POTASSIUM 4.1 mmol/L (3.5-5.1); SODIUM 141 mmol/L (136-145)
--- NOTE | 2018-06-12 06:06 | Diagnostic Imaging Report ---
CHEST SINGLE (NOT PORTABLE), 06/12/2018 8:00 AM Technique: CHEST SINGLE (NOT PORTABLE) Comparison: 10/24/2017, 09/30/2017 Clinical history: History of pulmonary fibrosis, a.m. chest x-ray Findings: See Impression Impression: 1. Stable mildly enlarged cardiac silhouette post sternotomy. 2. Stable coarse bilateral opacities in keeping with fibrosis. No new consolidation. 3. No effusion or pneumothorax. Signed by: Dr Cris Estes MD on 06/12/2018 6:02 AM
[2018-06-12] MEDS ORDERED: WARFARIN SOD 5 MG TAB PO SCH (07:30)
[2018-06-12] MEDS: PANTOPRAZOLE SOD 40 MG TABEC PO SCH (08:37)
[2018-06-12] MEDS: METOPROLOL SUCCINATE 25 MG TAB XL PO SCH (08:37)
[2018-06-12] MEDS: CEFTRIAXONE SOD 1 GM VIAL IV SCH ×2 (11:45→21:44)
[2018-06-12] MEDS: SODIUM CHLORIDE 0.9% 1000ML 1,000 ML IV SCH (14:58)
[2018-06-12 16:52] LABS: % IRON SATURATION 11 % (15-50); IRON 40 ug/dL (50-170); TOTAL IRON BINDING CAPACITY 372 ug/dL (261-478); TRANSFERRIN 266 mg/dL (180-382)
[2018-06-12] MEDS ORDERED: SIMVASTATIN 20 MG TAB PO SCH (21:00)
[2018-06-12] MEDS: AZITHROMYCIN 500MG/NS 250 ML 250 ML IV SCH (21:44)
--- NOTE | 2018-06-12 23:46 | Consultation ---
DATE OF CONSULTATION: PULMONARY CONSULTATION Patient of Dr. Linn and Dr. Bebo Clinton. HISTORY: Kelvin 73-year-old woman, lost to followup when she changed primary care to Dr. Linn, was admitted with urinary tract symptoms, was seen in [place] ER and was felt to have a pneumonia, and likely this is her pulmonary fibrosis. She has a history of dyspnea on exertion. She uses oxygen at night. She has history of coronary artery disease and coronary bypass surgery, history of gallbladder surgery, history of right heart catheterization and history of pulmonary hypertension, history of thoracoscopic robotic biopsy. MEDICATIONS: Revatio, Lasix, Eliquis, Calan, alendronate for osteoporosis and for fractures, Symbicort, Prilosec, Zocor. Currently, she is also taking warfarin. History of atrial fibrillation, coronary artery disease, symptoms were of urinary tract infection. ALLERGIC: IODINE. HOME MEDICATIONS: Warfarin, Zocor, Prilosec, metoprolol, Levaquin, and Revatio. She has a history of bypass surgery, gallbladder surgery, robotic thoracoscopic surgery, bronchoscopy, and EBUS. She is undergoing rheumatologic evaluation. She tried steroids and had unacceptable side effects. PHYSICAL EXAMINATION VITAL SIGNS: Temperature 97.4, pulse 88, respirations 18, blood pressure 116/54. HEAD: Normocephalic, atraumatic. EYES: Extraocular movements intact. LUNGS: Few rales. HEART: Regular rhythm. ABDOMEN: Nontender. EXTREMITIES: Nonedematous. Expected that she has nonspecific interstitial pneumonia. We request old records and biopsy report from [facility]. Therapy of urinary tract infection. Lupus serologies. Continue supplemental oxygen. Thank you for this kind referral. Job#: [id number]
[2018-06-13] VITALS: BP 90/52
[2018-06-13] MEDS: ALBUTEROL SULF 0.083% NEB SOLN 3 ML NEB NEB SCH ×2 (01:30→07:50)
[2018-06-13 04:00] VITALS: BP 103/59
[2018-06-13] MEDS: SODIUM CHLORIDE 0.9% 1000ML 1,000 ML IV SCH (04:06)
[2018-06-13 05:52] LABS: BASOPHILS % 0.3 % (0.0-1.0); EOSINOPHILS # (AUTO) 0.1 (0.0-0.4); EOSINOPHILS % 1.3 % (0.0-6.0); HEMATOCRIT 31.3 % (34.2-44.1); LYMPHOCYTES # (AUTO) 1.5 (1.0-3.2); LYMPHOCYTES % 25.6 % (18.0-39.1); MEAN CORPUSCULAR HEMOGLOBIN 30.4 pg (28-32); MEAN CORPUSCULAR HGB CONC 31.9 g/dL (31-35); MEAN CORPUSCULAR VOLUME 95.1 fL (81-99); MONOCYTES # (AUTO) 0.7 (0.2-0.8); MONOCYTES % 10.8 % (4.4-11.3); NEUTROPHILS # (AUTO) 3.7 (2.1-6.9); NEUTROPHILS % 61.3 % (38.7-80.0); PLATELET COUNT 188 x10e3/uL (140-360); RED BLOOD COUNT 3.29 x10e6/uL (3.6-5.1); RED CELL DISTRIBUTION WIDTH 18.4 % (11.7-14.4)
[2018-06-13 06:02] LABS: INR 2.89; PROTHROMBIN TIME 28.4 seconds (11.9-14.5)
[2018-06-13 06:08] LABS: ANION GAP 9.7 mmol/L (8-16); BLOOD UREA NITROGEN 8 mg/dL (7-26); BUN/CREATININE RATIO 11 (6-25); CALCIUM 8.3 mg/dL (8.4-10.2); CARBON DIOXIDE 21 mmol/L (22-29); CHLORIDE 114 mmol/L (98-107); EST GLOMERULAR FILTRATION RATE > 60 ML/MIN (60-); GLUCOSE 91 mg/dL (74-118); POTASSIUM 3.7 mmol/L (3.5-5.1); SODIUM 141 mmol/L (136-145)
[2018-06-13 07:36] VITALS: BP 141/78
[2018-06-13] MEDS: PANTOPRAZOLE SOD 40 MG TABEC PO SCH (08:39)
[2018-06-13] MEDS: METOPROLOL SUCCINATE 25 MG TAB XL PO SCH (08:39)
[2018-06-13] MEDS ORDERED: CIPRO500 MG PO (10:43)
[2018-06-13 11:05] VITALS: BP 141/78
[2018-06-13 11:11] VITALS: BP 133/94
[2018-06-13] MEDS: CEFTRIAXONE SOD 1 GM VIAL IV SCH (11:30)
== END 2018-06-13 11:26 | disposition home or self-care (01) | DRG 196 ==
LOC: MED/SURG3 22:30
PROVIDERS: ADMIT Family Medicine; ATTEND Family Medicine
DX: J84.10 Pulmonary fibrosis, unspecified (principal); J18.9 Pneumonia, unspecified organism; N39.0 Urinary tract infection, site not specified; I25.10 Atherosclerotic heart disease of native coronary artery without angina pectoris; Z95.1 Presence of aortocoronary bypass graft; P96.81 Exposure to (parental) (environmental) tobacco smoke in the perinatal period; Z99.81 Dependence on supplemental oxygen; I27.20 Pulmonary hypertension, unspecified
CPT/HCPCS: 36415; 71045; 80048; 80053; 83540; 84466; 85025; 85610; 86039; 87086; 94640; J0456; J0696; J7030

== ENCOUNTER 2018-07-22 12:18 | Observation (INO) | payer MEDICARE ==
[~2018-07-22] VITALS: Ht 158.8 cm; Wt 72.6 kg
[~2018-07-22 12:18] MED LIST changes: +CIPRO500 MG PO
[2018-07-22 13:53] LABS: BASOPHILS # (AUTO) 0.1 (0.0-0.1); BASOPHILS % 0.6 % (0.0-1.0); EOSINOPHILS # (AUTO) 0.2 (0.0-0.4); EOSINOPHILS % 2.6 % (0.0-6.0); HEMATOCRIT 39.9 % (34.2-44.1); HEMOGLOBIN 12.3 g/dL (12.0-16.0); LYMPHOCYTES # (AUTO) 1.4 (1.0-3.2); LYMPHOCYTES % 18.3 % (18.0-39.1); MEAN CORPUSCULAR HEMOGLOBIN 28.5 pg (28-32); MEAN CORPUSCULAR HGB CONC 30.8 g/dL (31-35); MEAN CORPUSCULAR VOLUME 92.6 fL (81-99); MONOCYTES # (AUTO) 0.7 (0.2-0.8); MONOCYTES % 9.4 % (4.4-11.3); NEUTROPHILS # (AUTO) 5.3 (2.1-6.9); NEUTROPHILS % 68.8 % (38.7-80.0); PLATELET COUNT 236 x10e3/uL (140-360); RED BLOOD COUNT 4.31 x10e6/uL (3.6-5.1); RED CELL DISTRIBUTION WIDTH 14.8 % (11.7-14.4)
[2018-07-22 14:17] LABS: ALANINE AMINOTRANSFERASE 18 IU/L (0-55); ALBUMIN 3.9 g/dL (3.5-5.0); ALBUMIN/GLOBULIN RATIO 1.1 (0.8-2.0); ALKALINE PHOSPHATASE 107 IU/L (40-150); ANION GAP 16.3 mmol/L (8-16); BLOOD UREA NITROGEN 12 mg/dL (7-26); BUN/CREATININE RATIO 15 (6-25); CARBON DIOXIDE 21 mmol/L (22-29); CHLORIDE 106 mmol/L (98-107); CREATINE KINASE 41 IU/L (29-168); EST GLOMERULAR FILTRATION RATE > 60 ML/MIN (60-); GLUCOSE 96 mg/dL (74-118); POTASSIUM 4.3 mmol/L (3.5-5.1); SODIUM 139 mmol/L (136-145)
[2018-07-22 14:20] LABS: ABG HCO3 21 mmol/L (23-28); ABG PCO2 30 mmHg (41-51); ABG PH 7.45 (7.31-7.41); ABG PO2 85 mmHg (80-105)
--- NOTE | 2018-07-22 16:22 | Diagnostic Imaging Report ---
Bilateral Ribs and PA Chest COMPARISON: Chest radiograph 06/12/2018 FINDINGS: There is a displaced fracture of the left posterolateral eighth rib. Possible old healed left posterolateral fourth rib fracture. Intact median sternotomy wires. The cardiac silhouette is enlarged in size. There are bilateral interstitial opacities and fibrotic changes at the lung base. Slightly increased patchy opacity at the right lung base. No evidence of lobar consolidation. No evidence of pneumothorax. Status post cholecystectomy. S shaped scoliosis of the thoracolumbar spine. Diffuse osteopenia and degenerative changes. IMPRESSION: Minimally displaced fracture of the left posterolateral eighth rib. No evidence of pneumothorax. Course bilateral interstitial opacities, in keeping with fibrosis. Slightly increased patchy opacities in the right lung base, likely atelectasis. Signed by: Dr. Iza Vargas MD on 07/22/2018 4:19 PM
--- NOTE | 2018-07-22 16:33 | Diagnostic Imaging Report ---
Exam: Lumbar spine radiographs, three views. Clinical History: Back pain Comparison: CT 07/07/2016 and chest radiograph 09/29/2017. Chest radiograph 06/12/18. Findings: Diffuse osteopenia. Age indeterminate anterior wedge compression deformity at L3 with loss of approximately 50 percent of vertebral body height. Severe T10 wedge compression deformity with loss of approximately 75 percent of vertebral body height, unchanged since radiograph on 09/29/2017. Unchanged wedge compression deformity at T11 with loss of approximately 50 percent of vertebral body height compared to 09/29/2017. No evidence of posterior retropulsion. Grade 1 anterolisthesis of L5 on S1. Mild degenerative disc and moderate facet degenerative changes, most pronounced in the lower lumbar spine. Non-obstructive bowel gas pattern. Status post cholecystectomy. Vascular stent projects over the left lower abdomen. Impression: Age indeterminate moderate anterior wedge compression deformity at L3 as above. Unchanged T10 and T11 wedge compression deformities. Signed by: Dr. Iza Vargas MD on 07/22/2018 4:29 PM
[2018-07-22 16:48] LABS: BILIRUBIN,URINE NEGATIVE (NEGATIVE); CLARITY,URINE CLEAR (CLEAR); COLOR,URINE YELLOW (YELLOW); KETONES,URINE NEGATIVE (NEGATIVE); LEUKOCYTE ESTERASE ,URINE NEGATIVE (NEGATIVE); NITRITE,URINE NEGATIVE (NEGATIVE); PROTEIN,URINE DIPSTICK TRACE (NEGATIVE); URINE UROBILINOGEN 0.2 mg/dL (0.2 - 1)
[2018-07-22] MEDS ORDERED: MORPHINE SULFATE 2 MG/ML SYR IV PRN (17:00)
[2018-07-22] MEDS ORDERED: ONDANSETRON HCL INJ 2 MG/ML VIAL IV PRN (17:00)
[2018-07-22 17:02] LABS: BACTERIA,URINE FEW /HPF; EPITHELIAL CELLS,URINE MANY /LPF; MUCUS,URINE MODERATE (RARE)
[2018-07-22] MEDS ORDERED: FENTANYL CITRATE/PF 100MCG/2 ML INJ IV ONE (17:15)
[2018-07-22] MEDS ORDERED: ACETAMINOPHEN/CODEINE 300MG - 30MG TAB PO ONE (17:45)
[2018-07-22] MEDS: LIDOCAINE 5% PATCH TP SCH (17:50)
[2018-07-22] MEDS ORDERED: CELLCEPT500 MG PO (19:23)
[2018-07-22] MEDS ORDERED: REVATIO20 MG PO (19:23)
[2018-07-22] MEDS ORDERED: SYMBICORT 80-10.2 GM INH (19:23)
[2018-07-22] MEDS ORDERED: PREDNISONE10 MG PO (19:23)
[2018-07-22 20:15] VITALS: BP 137/76
[2018-07-22 20:46] VITALS: BP 137/76
--- NOTE | 2018-07-22 21:04 | Consultation ---
DATE OF CONSULTATION: July 22, 2018 PULMONARY CONSULTATION REASON FOR THE CONSULT: History of lung disease, shortness of breath. HPI: Ms. Elmore is a 73-year-old female well known to me from previous admission, and patient was our office patient. Patient has changed director of consumer marketing and now she is seeing Dr. Tripathi in [place] because she changed her primary care physician. She was last admitted in June of 2018 complaints of shortness of breath. She has pulmonary hypertension, recently had a thoracoscopic biopsy done as well at [place]. She is here because she was having back pain. Back pain going on for last few days. REVIEW OF SYSTEMS: GENERAL: Denies any fever or chills. HEAD: Denies any head trauma. ENT: Denies any earache. CVS: Denies any chest pain. RESPIRATORY: Shortness of breath. Rest of the review of systems are negative except as in HPI. PAST MEDICAL HISTORY: Pulmonary fibrosis, hypertension, pulmonary hypertension, osteoporosis, history of atrial fibrillation, coronary artery disease. FAMILY AND SOCIAL HISTORY: She does not smoke, does not drink. PHYSICAL EXAMINATION: VITAL SIGNS: Temperature , pulse of 84, blood pressure 108/75, respiratory rate of 18. HEENT: Head atraumatic, normocephalic. NECK: Supple. CHEST: Few crackles on the bases, otherwise clear. HEART: S1 and S2 audible. ABDOMEN: Soft, nontender, nondistended. EXTREMITIES: No clubbing, cyanosis, or edema. NEUROLOGICAL: Awake and alert. LABS: White count of 7000, hemoglobin 12.3, platelets 236,000. Chemistry: Sodium 139, potassium 4.3, chloride 106, BUN 12, creatinine 0.8. BNP 110. INR is 2.89. Lumbar spine x-ray, compression deformities. Ribs with chest x-ray showing minimally displaced fracture of left posterolateral 8th rib. Patient has interstitial opacities, but I did not see any significant change from previous. ASSESSMENT: Ms. Elmore is a 73-year-old female. She has pulmonary fibrosis. Etiology has not been diagnosed. She has nonspecific interstitial pneumonitis. She is under the care of Dr. Tripathi, currently here because of rib fracture. CURRENT PROBLEMS: 1. Pulmonary fibrosis, nonspecific interstitial pneumonitis. 2. History of pulmonary hypertension. 3. Atrial fibrillation. 4. Back pain. PLAN: 1. Continue the patient on pain medications. She is on morphine for pain control. 2. I will start the patient on nebulizer treatment. 3. Oxygen as needed to keep the O2 sat more than or equal to 92%. Thank you for this consult. Job#: [id number]
[2018-07-23] VITALS (9 sets, daily range): BP systolic 109–133; BP diastolic 52–76
[2018-07-23] MEDS: LEVALBUTEROL HCL SOLN NEBU 1.25 MG/3 ML NEB INH SCH ×4 (01:00→21:15)
[2018-07-23] MEDS: BUDESONIDE/FORMOTEROL FUMARATE 80/4.5MCG 6.9 GM INH AEROSOL IH SCH ×2 (09:00→21:15)
[2018-07-23] MEDS ORDERED: LIDOCAINE 5% PATCH TP SCH (09:00)
[2018-07-23] MEDS: PANTOPRAZOLE SOD 40 MG TABEC PO SCH (09:07)
[2018-07-23] MEDS: PREDNISONE 5 MG TAB PO SCH (09:07)
[2018-07-23] MEDS: LIDOCAINE 5% PATCH TP SCH (09:07)
[2018-07-23] MEDS ORDERED: METOPROLOL SUCC50 MG PO (09:09)
[2018-07-23] MEDS: SILDENAFIL CITRATE 20 MG TAB PO SCH ×2 (10:19→16:44)
--- NOTE | 2018-07-23 12:50 | History and Physical ---
ADDENDUM In addition to her osteoporosis, the patient carries a diagnosis of usual interstitial pulmonary fibrosis, right upper lobe and lower lobe wedge excisional biopsy. Excision revealed cellular interstitial fibroblast proliferation with temporal heterogeneity consistent with usual interstitial pulmonary fibrosis with focal organizing pneumonia. Lymph nodes were reactive. Job#: [id number] KEITH
[2018-07-23] MEDS ORDERED: ACETAMINOPHEN/CODEINE 300MG - 30MG TAB PO ONE (20:45)
[2018-07-23] MEDS: SIMVASTATIN 20 MG TAB PO SCH (20:57)
[2018-07-24] VITALS (8 sets, daily range): BP systolic 91–133; BP diastolic 50–76
[2018-07-24] MEDS: LEVALBUTEROL HCL SOLN NEBU 1.25 MG/3 ML NEB INH SCH ×4 (01:30→20:15)
[2018-07-24] MEDS: BUDESONIDE/FORMOTEROL FUMARATE 80/4.5MCG 6.9 GM INH AEROSOL IH SCH ×3 (08:00→20:15)
[2018-07-24] MEDS: LIDOCAINE 5% PATCH TP SCH (10:14)
[2018-07-24] MEDS: SILDENAFIL CITRATE 20 MG TAB PO SCH ×2 (10:14→17:58)
[2018-07-24] MEDS: PREDNISONE 5 MG TAB PO SCH (10:14)
[2018-07-24] MEDS: PANTOPRAZOLE SOD 40 MG TABEC PO SCH (10:16)
[2018-07-24] MEDS: ACETAMINOPHEN/CODEINE 300MG - 30MG TAB PO PRN ×2 (10:30→20:02)
[2018-07-24] MEDS: SIMVASTATIN 20 MG TAB PO SCH (20:01)
[2018-07-25] VITALS: BP 101/54
[2018-07-25] MEDS: LEVALBUTEROL HCL SOLN NEBU 1.25 MG/3 ML NEB INH SCH ×3 (01:00→13:00)
[2018-07-25 04:00] VITALS: BP 117/58
[2018-07-25] MEDS: BUDESONIDE/FORMOTEROL FUMARATE 80/4.5MCG 6.9 GM INH AEROSOL IH SCH (07:00)
[2018-07-25 07:44] VITALS: BP 135/78
[2018-07-25 07:48] VITALS: BP 135/78
[2018-07-25] MEDS: PREDNISONE 5 MG TAB PO SCH (08:57)
[2018-07-25] MEDS: SILDENAFIL CITRATE 20 MG TAB PO SCH (08:57)
[2018-07-25] MEDS: PANTOPRAZOLE SOD 40 MG TABEC PO SCH (08:57)
[2018-07-25] MEDS: LIDOCAINE 5% PATCH TP SCH (08:58)
[2018-07-25] MEDS: ACETAMINOPHEN/CODEINE 300MG - 30MG TAB PO PRN (10:06)
[2018-07-25 11:54] VITALS: BP 121/62
[2018-07-25 15:32] VITALS: BP 102/62
[2018-07-25] MEDS ORDERED: TYLENOL WITH C1 EACH PO (15:39)
--- NOTE | 2018-10-02 15:55 | Discharge Summary ---
DISCHARGE DIAGNOSES 1. Rib fracture. 2. Chronic respiratory failure. 3. Hypoxia. 4. Pulmonary fibrosis. 5. Atrial fibrillation. HISTORY OF PRESENT ILLNESS AND HOSPITAL COURSE: See hospital chart for full details. Patient is a 73-year-old lady who presented with left rib pain, was found to have a fracture, who has a history of severe respiratory failure, on chronic home O2. The fracture is on the left 8th rib, so patient was brought in for pain control which was able to be achieved with Tylenol No. 3. At the time of discharge, patient was doing well. She was able to be discharged home and follow up with her director information in 1 to 2 weeks, who did see her while she was in the hospital. Please see hospital chart for full details. Job#: [id number] LPA
== END 2018-07-25 16:08 | disposition home or self-care (01) ==
LOC: ER 12:18 → ERHOLD 16:53 → IMCU 20:12
PROVIDERS: ADMIT Internal Medicine; ATTEND Internal Medicine
DX: J84.89 Other specified interstitial pulmonary diseases (principal); S22.31XA Fracture of one rib, right side, initial encounter for closed fracture; M81.0 Age-related osteoporosis without current pathological fracture; I48.91 Unspecified atrial fibrillation; J96.11 Chronic respiratory failure with hypoxia; Z82.49 Family history of ischemic heart disease and other diseases of the circulatory system; Z91.048 Other nonmedicinal substance allergy status; M54.9 Dorsalgia, unspecified; K21.9 Gastro-esophageal reflux disease without esophagitis; E78.00 Pure hypercholesterolemia, unspecified
CPT/HCPCS: 36415; 36600; 71111; 72100; 80053; 81001; 82550; 82553; 82805; 83880; 84484; 85025; 93005; 94640 ×8; 99284; G0378 ×4; J7512 ×3; S0164 ×3

== ENCOUNTER 2018-08-30 14:55 | Emergency (ER) | payer MEDICARE ==
[~2018-08-30] VITALS: Ht 157.5 cm; Wt 65.8 kg
[~2018-08-30 14:55] MED LIST changes: +CELLCEPT500 MG PO; +METOPROLOL SUCC50 MG PO; +PREDNISONE10 MG PO; +REVATIO20 MG PO; +SYMBICORT 80-10.2 GM INH; +TYLENOL WITH C1 EACH PO
[2018-08-30] MEDS ORDERED: IPRATROPIUM BROMIDE 0.02% 2.5 ML NEB NEB STA (15:13)
[2018-08-30] MEDS ORDERED: ALBUTEROL SULF 0.083% NEB SOLN 3 ML NEB NEB STA (15:13)
[2018-08-30] MEDS ORDERED: METHYLPREDNISOLONE SOD SUCC 125 MG/2ML VIAL IV ONE (15:30)
[2018-08-30 15:34] LABS: BASOPHILS % 0.6 % (0.0-1.0); EOSINOPHILS # (AUTO) 0.1 (0.0-0.4); EOSINOPHILS % 2.1 % (0.0-6.0); HEMATOCRIT 37.7 % (34.2-44.1); HEMOGLOBIN 11.8 g/dL (12.0-16.0); LYMPHOCYTES # (AUTO) 1.1 (1.0-3.2); LYMPHOCYTES % 18.4 % (18.0-39.1); MEAN CORPUSCULAR HEMOGLOBIN 26.8 pg (28-32); MEAN CORPUSCULAR HGB CONC 31.3 g/dL (31-35); MEAN CORPUSCULAR VOLUME 85.5 fL (81-99); MONOCYTES # (AUTO) 0.7 (0.2-0.8); MONOCYTES % 10.5 % (4.4-11.3); NEUTROPHILS # (AUTO) 4.2 (2.1-6.9); NEUTROPHILS % 68.1 % (38.7-80.0); PLATELET COUNT 224 x10e3/uL (140-360); RED BLOOD COUNT 4.41 x10e6/uL (3.6-5.1); RED CELL DISTRIBUTION WIDTH 16.4 % (11.7-14.4)
[2018-08-30 15:56] LABS: ALANINE AMINOTRANSFERASE 8 IU/L (0-55); ALBUMIN 3.7 g/dL (3.5-5.0); ALBUMIN/GLOBULIN RATIO 1.2 (0.8-2.0); ALKALINE PHOSPHATASE 114 IU/L (40-150); ANION GAP 15.1 mmol/L (8-16); BLOOD UREA NITROGEN 5 mg/dL (7-26); BUN/CREATININE RATIO 7 (6-25); CALCIUM 9.6 mg/dL (8.4-10.2); CARBON DIOXIDE 19 mmol/L (22-29); CHLORIDE 107 mmol/L (98-107); CREATINE KINASE 62 IU/L (29-168); EST GLOMERULAR FILTRATION RATE > 60 ML/MIN (60-); GLUCOSE 115 mg/dL (74-118); POTASSIUM 4.1 mmol/L (3.5-5.1); SODIUM 137 mmol/L (136-145)
[2018-08-30 15:58] LABS: GIANT PLATELETS FEW; LARGE PLATELETS FEW; PLATELET ESTIMATE ADEQUATE; PLATELET MORPHOLOGY COMMENT NORMAL
[2018-08-30 15:59] LABS: RBC MORPHOLOGY COMMENT NORMAL
--- NOTE | 2018-08-30 15:59 | Diagnostic Imaging Report ---
EXAM: XR CHEST 1 VIEW DATE: 08/30/2018 3:13 PM INDICATION: Cough COMPARISON: 06/12/2018 chest x-ray, 12/14/2017 CT, no report available FINDINGS: Lines and Tubes: None Heart and Mediastinum: The heart is mildly enlarged. Sternotomy wires, tortuous aorta, and vascular calcifications are stable. Lungs and Pleura: Biapical scarring and coarse opacities in the mid and lower lungs are present, similar to prior CT allowing for differences in technique. Bones and Soft Tissues: No acute findings. IMPRESSION: 1. Coarse basilar opacities correspond with chronic interstitial lung changes on prior CT. Superimposed edema or infectious process possible. Signed by: Dr. Mateo Garza MD on 08/30/2018 3:56 PM
[2018-08-30 16:13] LABS: INR 1.25; PROTHROMBIN TIME 16.8 seconds (11.9-14.5)
[2018-08-30 16:18] LABS: PARTIAL THROMBOPLASTIN TIME 25.7 seconds (23.8-35.5)
[2018-08-30 16:31] LABS: CLARITY,URINE SL CLOUDY (CLEAR); COLOR,URINE YELLOW (YELLOW); KETONES,URINE 1+ (NEGATIVE); LEUKOCYTE ESTERASE ,URINE NEGATIVE (NEGATIVE); NITRITE,URINE NEGATIVE (NEGATIVE); PROTEIN,URINE DIPSTICK NEGATIVE (NEGATIVE)
[2018-08-30 16:32] LABS: BILIRUBIN,URINE NEGATIVE (NEGATIVE); URINE UROBILINOGEN 0.2 mg/dL (0.2 - 1)
[2018-08-30 16:50] LABS: RBC,URINE 0-5 /HPF (0-5); WBC,URINE (MAN) 0-5 /HPF (0-5)
[2018-08-30 16:51] LABS: BACTERIA,URINE FEW /HPF; EPITHELIAL CELLS,URINE MODERATE /LPF
[2018-08-30] MEDS ORDERED: CEFTRIAXONE SOD 1 GM VIAL IV SCH (19:15)
[2018-08-30] MEDS ORDERED: METHYLPREDNISOLONE SOD SUCC 125 MG/2ML VIAL ONE (19:56)
[2018-08-30] MEDS ORDERED: ACETAMINOPHEN/CODEINE 300MG - 30MG TAB PO ONE (21:00)
[2018-08-30] MEDS ORDERED: FUROSEMIDE40 MG PO (21:08)
[2018-08-30] MEDS ORDERED: WARFARIN SODIUM5 MG PO (21:08)
[2018-08-30] MEDS ORDERED: IPRAT-ALBUT 0.5-3 ML NEB (21:08)
[2018-08-30] MEDS ORDERED: TYLENOL # 31 EA PO (21:08)
[2018-08-30] MEDS ORDERED: REVATIO20 MG PO (21:08)
== END 2018-08-30 21:40 | disposition short-term general hospital (02) ==
LOC: ER 14:55
DX: R06.00 Dyspnea, unspecified (principal); R09.02 Hypoxemia; J44.1 Chronic obstructive pulmonary disease with (acute) exacerbation; J15.9 Unspecified bacterial pneumonia
CPT/HCPCS: 36415; 71045; 80053; 81001; 82550; 82553; 83880; 84484; 85025; 85610; 85730; 93005; 99284; J0696; J2930

== ENCOUNTER → 2018-11-16 | Outpatient (CLI) | payer MEDICARE ==
[~2018-11-16] MED LIST changes: +FUROSEMIDE40 MG PO; +IPRAT-ALBUT 0.5-3 ML NEB; +TYLENOL # 31 EA PO; +WARFARIN SODIUM5 MG PO
--- NOTE | 2018-11-16 11:43 | Diagnostic Imaging Report ---
Examination: Barium swallow Clinical indication: Dysphagia. Comparison examination: Chest radiograph 08/30/2018. Technique: Effervescent crystals and barium were ingested by mouth and multiple fluoroscopic spot images of the esophagus and stomach were obtained. Fluoroscopy time: 1 minute Findings: Pharynx: Vallecula and perform sinuses are symmetric. Esophagus: Contractility, mucosal appearance, and distensibility are within normal limits. Gastroesophageal junction: No evidence of hiatal hernia. Mild reflux into the lower third of the esophagus was observed. Stomach: Limited evaluation with normal distensibility and mucosal folds. Incidental note of a small duodenal diverticulum. Impression: Mild gastroesophageal reflux. Otherwise unremarkable esophagram. Signed by: Dr. Arnaud Raygoza M.D. on 11/16/2018 11:40 AM
== END ==
LOC: DX 10:04
PROVIDERS: ATTEND Internal Medicine Pulmonary Disease
DX: R05 Cough (principal)
CPT/HCPCS: 74220

== ENCOUNTER → 2019-09-20 | Outpatient (CLI) | payer MEDICARE | LOC: RAD 09:41 | PROVIDERS: ATTEND Family Medicine | DX: R60.0 Localized edema (principal) | CPT/HCPCS: 93971 ==

== ENCOUNTER → 2019-11-18 | Outpatient (CLI) | payer MEDICARE ==
--- NOTE | 2019-11-18 14:02 | Diagnostic Imaging Report ---
Exam: Bone mineral density study. History: Postmenopausal female. Comparison: None Discussion: Evaluation of the left hip and lumbar spine was performed utilizing DEXA Hologic bone densitometer. The study is technically adequate. The patient's fracture risk is compared to an age-matched control. Left femoral neck bone mineral density: 0.543 g/cm2, T-score is -2.8, Z-score is -0.6. No previous comparison. Lumbar spine total bone mineral density: 0.673 gm/cm2, T-score is -3.4, Z-score is -0.9. No previous comparison. Impression: Bone mineralization by WHO Classification using T score is osteoporosis, fracture risk is high. <T score: NL = -1 or higher Osteopenia = -1 to -2.5 Osteoporosis = -2.5 or lower Z score: < - 1.5 concerning for path> Recommendations: Treatment is recommended. Correlate clinically for the necessity and timing of the next bone mineral density study. National Osteoporosis Foundation recommendations: Initiate therapy to reduce fracture risk in postmenopausal women with -BMD t-scores below -2 by central DXA with no risk factors -BMD t-scores below -1.5 by central DXA with one or more risk factors (first deg relative with hip fracture, prior personal fracture, low body weight, smoking) -A prior vertebral or hip fracture AACE (Clinical Endocrinology) recommends treating the following: Postmenopausal women who have osteoporosis as diagnosed by fragility fractures or t scores -2.5 or below Postmenopausal women who have risk factors (including fh of hip fracture, low body weight, smoking, risk of falling, high bone turnover, advancing age) and borderline low BMD T scores of -1.5 or below Adequate intake of calcium (at least 1200mg/day) and vitamin D (400-800 IU/day). Regular weight bearing and muscle - strengthening exercises Avoid smoking and excessive alcohol Signed by: Baldo Diaz on 11/18/2019 1:59 PM
== END ==
LOC: DX 13:04
PROVIDERS: ATTEND Family Medicine
DX: M89.9 Disorder of bone, unspecified (principal); Z78.0 Asymptomatic menopausal state
CPT/HCPCS: 77080

== ENCOUNTER 2020-01-01 19:06 | Inpatient (IN) | payer MEDICARE, OTHER ==
[~2020-01-01] VITALS: Ht 157.5 cm; Wt 65.8 kg
[2020-01-01] MEDS: ALBUTEROL SULF 0.083% NEB SOLN 3 ML NEB NEB SCH (00:18)
[2020-01-01 19:47] LABS: BASOPHILS % 0.2 % (0.0-1.0); EOSINOPHILS # (AUTO) 0.1 (0.0-0.4); EOSINOPHILS % 2.2 % (0.0-6.0); HEMATOCRIT 43.5 % (34.2-44.1); HEMOGLOBIN 13.4 g/dL (12.0-16.0); LYMPHOCYTES # (AUTO) 1.8 (1.0-3.2); LYMPHOCYTES % 27.5 % (18.0-39.1); MEAN CORPUSCULAR HEMOGLOBIN 29.6 pg (28-32); MEAN CORPUSCULAR HGB CONC 30.8 g/dL (31-35); MEAN CORPUSCULAR VOLUME 96.2 fL (81-99); MONOCYTES # (AUTO) 0.9 (0.2-0.8); MONOCYTES % 13.1 % (4.4-11.3); NEUTROPHILS # (AUTO) 3.7 (2.1-6.9); NEUTROPHILS % 56.7 % (38.7-80.0); PLATELET COUNT 161 x10e3/uL (140-360); RED BLOOD COUNT 4.52 x10e6/uL (3.6-5.1); RED CELL DISTRIBUTION WIDTH 14.6 % (11.7-14.4)
[2020-01-01 20:05] LABS: ALANINE AMINOTRANSFERASE 15 IU/L (0-55); ALBUMIN 3.7 g/dL (3.5-5.0); ALBUMIN/GLOBULIN RATIO 1.1 (0.8-2.0); ALKALINE PHOSPHATASE 110 IU/L (40-150); ANION GAP 12.1 mmol/L (8-16); BLOOD UREA NITROGEN 13 mg/dL (7-26); BUN/CREATININE RATIO 16 (6-25); CALCIUM 9.3 mg/dL (8.4-10.2); CARBON DIOXIDE 26 mmol/L (22-29); CHLORIDE 104 mmol/L (98-107); CREATINE KINASE 39 IU/L (29-168); CREATININE, SERUM 0.82 mg/dL (0.57-1.11); EST GLOMERULAR FILTRATION RATE > 60 ML/MIN (60-); GLUCOSE 120 mg/dL (74-118); POTASSIUM 4.1 mmol/L (3.5-5.1); SODIUM 138 mmol/L (136-145)
--- NOTE | 2020-01-01 21:30 | NUR ---
PT RESTING, VITAL SIGNS STABLE, PT VOICES NO COMPLAINTS AT THIS TIME. PT AWARE OF POC
--- NOTE | 2020-01-01 21:43 | Diagnostic Imaging Report ---
EXAM: CT Chest WITHOUT contrast INDICATION: short of breath, cough, chest pain COMPARISON: Chest x-ray 10/26/2018 TECHNIQUE: Chest was scanned utilizing a multidetector helical scanner from the lung apex through the level of the adrenal glands without administration of IV contrast. Absence of intravenous contrast decreases sensitivity for detection of lymphadenopathy and vascular pathology. Coronal and sagittal reformations were obtained. Routine protocol was performed. IV CONTRAST: None COMPLICATIONS: None RADIATION DOSE: Total DLP: 460 mGy*cm Estimated effective dose: (DLP x 0.014 x size factor) mSv CTDIvol has been reviewed. It is below the limits set by the Radiation Protocol Committee (RPC). Dose modulation, iterative reconstruction, and/or weight based adjustment of the mA/kV was utilized to reduce the radiation dose to as low as reasonably achievable. FINDINGS: LINES/ TUBES: None. LUNGS AND AIRWAYS: Extensive coarse reticular opacities, predominantly peripheral/subpleural and in the mid to lower lungs. Mosaic attenuation in the lower lungs. Traction bronchiectasis in the lower lungs. Airways are patent. Some areas of peripheral honeycombing, more so in the right lung base. Was resection sutures in the superoposterior right lower lobe. Volume loss in the lower lobes, worst in the right lower lobe PLEURA: The pleural spaces are clear. HEART AND MEDIASTINUM: The thyroid gland is normal. No mediastinal, hilar or axillary lymphadenopathy. Calcifications of the aorta and major branches including the coronary arteries. Aortic valve calcifications. Moderate cardiomegaly, severe right atrial enlargement. There is no pericardial effusion. Surgical changes of coronary artery bypass grafts. Mild main pulmonary artery dilation and prominent pulmonary vascular tube. UPPER ABDOMEN: Unremarkable. BONES: Stable mildly vertebral body compression fractures of T6-T8 and T10-T11. Advanced thoracic kyphosis. Degenerative changes in the spine. Sternotomy wires intact SOFT TISSUES: Unremarkable. IMPRESSION: Noncontrast exam, pulmonary emboli cannot be excluded. Moderate cardiomegaly and pulmonary vascular congestion, superimposed pulmonary interstitial edema is possible. Probable cor pulmonale. Extensive pulmonary fibrotic changes, could be usual interstitial pneumonia or a nonspecific interstitial pneumonitis pattern. Superimposed active infection/pneumonitis is possible. Extensive calcific coronary artery disease status post coronary artery bypass grafts. Aortic valve calcific disease. Multiple thoracic vertebral body compression fractures appear stable. Low bone mineral density. Signed by: Edson Butler DO on 01/01/2020 9:40 PM
[2020-01-01 21:45] VITALS: BP 144/91
--- NOTE | 2020-01-01 21:46 | Diagnostic Imaging Report ---
EXAMINATION: CHEST SINGLE (PORTABLE) INDICATION: Short of breath, cough, chest pain COMPARISON: Same day chest CT FINDINGS: TUBES and LINES: None. LUNGS: Normal lung volumes. Coarse reticular opacities throughout the lungs. Scattered areas of lung haziness. PLEURA: No pleural effusion or pneumothorax. HEART AND MEDIASTINUM: Cardiac size is moderately enlarged. BONES AND SOFT TISSUES: Multiple vertebral body compression fractures. Degenerative changes in the spine. UPPER ABDOMEN: No free air under the diaphragm. There are cholecystectomy clips. IMPRESSION: Moderate cardiomegaly and pulmonary vascular congestion, superimposed pulmonary interstitial edema is possible. Extensive pulmonary fibrotic changes, could be usual interstitial pneumonia or a nonspecific interstitial pneumonitis pattern. Superimposed active infection/pneumonitis is possible. Multiple thoracic vertebral body compression fractures appear stable. Low bone mineral density. Signed by: Edson Butler DO on 01/01/2020 9:43 PM
[2020-01-01] MEDS ORDERED: ACETAMINOPHEN 325 MG TAB PO PRN (22:30)
--- NOTE | 2020-01-01 22:30 | NUR ---
PT TO BE ADMITTED, PT AWARE OF POC, PT VITAL SIGNS STABLE, PT VOICES NO COMPLAINTS AT THIS TIME
[2020-01-01 23:00] VITALS: BP 149/84
[2020-01-01] MEDS ORDERED: VERAPAMIL ER120 MG PO (23:54)
[2020-01-02] VITALS (7 sets, daily range): BP systolic 95–144; BP diastolic 58–91
[2020-01-02] MEDS ORDERED: GUAIFENESIN 200 MG/10 ML UDC PO PRN (00:15)
[2020-01-02] MEDS ORDERED: SODIUM CHLORIDE 0.9% 250ML 250 ML ONE (00:58)
[2020-01-02] MEDS: PIPER-TAZ 3.375 GM 50 ML IV SCH ×5 (01:14→23:56)
[2020-01-02] MEDS: VERAPAMIL HCL 120 MG TABSR PO SCH ×2 (01:15→20:41)
[2020-01-02] MEDS: ACETAMINOPHEN/CODEINE 300MG - 30MG TAB PO PRN ×3 (01:15→17:40)
[2020-01-02] MEDS: ALBUTEROL SULF 0.083% NEB SOLN 3 ML NEB NEB SCH ×2 (03:10→08:00)
[2020-01-02 06:31] LABS: BASOPHILS % 0.2 % (0.0-1.0); EOSINOPHILS # (AUTO) 0.1 (0.0-0.4); HEMATOCRIT 37.8 % (34.2-44.1); HEMOGLOBIN 11.9 g/dL (12.0-16.0); LYMPHOCYTES # (AUTO) 1.2 (1.0-3.2); LYMPHOCYTES % 21.6 % (18.0-39.1); MEAN CORPUSCULAR HGB CONC 31.5 g/dL (31-35); MEAN CORPUSCULAR VOLUME 95.2 fL (81-99); MONOCYTES # (AUTO) 0.6 (0.2-0.8); MONOCYTES % 11.3 % (4.4-11.3); NEUTROPHILS # (AUTO) 3.6 (2.1-6.9); NEUTROPHILS % 64.5 % (38.7-80.0); PLATELET COUNT 122 x10e3/uL (140-360); RED BLOOD COUNT 3.97 x10e6/uL (3.6-5.1); RED CELL DISTRIBUTION WIDTH 14.5 % (11.7-14.4)
[2020-01-02 06:54] LABS: ALANINE AMINOTRANSFERASE 14 IU/L (0-55); ALBUMIN 3.1 g/dL (3.5-5.0); ALBUMIN/GLOBULIN RATIO 1.1 (0.8-2.0); ALKALINE PHOSPHATASE 94 IU/L (40-150); ANION GAP 8.1 mmol/L (8-16); BLOOD UREA NITROGEN 10 mg/dL (7-26); BUN/CREATININE RATIO 14 (6-25); CALCIUM 8.7 mg/dL (8.4-10.2); CARBON DIOXIDE 27 mmol/L (22-29); CHLORIDE 108 mmol/L (98-107); CREATININE, SERUM 0.73 mg/dL (0.57-1.11); EST GLOMERULAR FILTRATION RATE > 60 ML/MIN (60-); GLUCOSE 91 mg/dL (74-118); POTASSIUM 4.1 mmol/L (3.5-5.1); SODIUM 139 mmol/L (136-145)
--- NOTE | 2020-01-02 06:59 | NUR ---
patient is resting comfortably in the bed. bed is in the lowest position and call light is within reach.
--- NOTE | 2020-01-02 07:00 | NUR ---
Received bedside shift report from off going nurse. Patient is resting in bed. No acute distress noted. Call light within reach. Bed in the lowest position.
[2020-01-02 07:23] LABS: CREATINE KINASE 31 IU/L (29-168)
[2020-01-02] MEDS ORDERED: FUROSEMIDE 40 MG TAB PO PRN (07:30)
[2020-01-02] MEDS ORDERED: ACETAMINOPHEN/CODEINE 300MG - 30MG TAB PO PRN (07:30)
[2020-01-02] MEDS: BUDESONIDE/FORMOTEROL FUMARATE 80/4.5MCG 6.9 GM INH AEROSOL IH SCH ×2 (08:00→19:25)
--- NOTE | 2020-01-02 08:14 | History and Physical ---
CHIEF COMPLAINT: A 74-year-old female with pulmonary fibrosis, pulmonary hypertension, comes in with shortness of breath. HISTORY OF PRESENTING ILLNESS: Ms. Essie Elmore with a history of interstitial lung disease, chronic atrial fibrillation, COPD, bronchitis, pulmonary fibrosis, was in usual state of health until the patient started to have some upper respiratory symptoms about a week ago, was started on nebulizer treatments, antibiotics are prescribed over the phone. The patient did not feel better yesterday. Shortness of breath acutely got worse. The patient came into the emergency room, was admitted to the hospital with respiratory droplet isolation. No fever was documented or noted by the patient. PAST MEDICAL HISTORY: 1. History of pulmonary fibrosis. 2. Atrial fibrillation. 3. CAD status post triple bypass. 4. PAD with stent to the left femoral artery with fem-pop. 5. History of hypertension. The patient also had a history of [place]. PAST SURGICAL HISTORY: History of bypass in 1998. The patient also had stent to the left femoral artery and also fem-pop bypass. The patient other surgical history includes cholecystectomy. Other medical history includes osteoporosis from chronic steroid intake. REVIEW OF SYSTEMS: Negative for chest pain. Positive for shortness of breath on exertion and on rest. No nausea. No vomiting. No diarrhea. No constipation. No rectal bleeding. No hematochezia. No hematemesis. FAMILY HISTORY: Noncontributory. SOCIAL HISTORY: No EtOH. No IV drug abuse. Has not contacted anyone with COVID in the recent past. No smoking history either. PHYSICAL EXAMINATION: VITAL SIGNS: On arrival, temperature 97.0, pulse of 112, respirations of 16, blood pressure is 114/91, pulse oximetry of 94% on 2 L of oxygen. HEENT: Normocephalic and atraumatic. The patient is on oxygen. CVS: S1 and S2 normal. Regular rate and rhythm. ABDOMEN: Nontender and nondistended. EXTREMITIES: Positive for cyanosis and positive for clubbing and no edema. LABORATORY VALUES: White count is 6.51 initially, hemoglobin 13.4, hematocrit of 34.5. Chemistry; sodium of 139, potassium of 4.1, BUN of 10, and creatinine 0.73. Troponins have been negative so far, has been trended. BNP was 113. Serology, COVID-19 has been ordered. Adenovirus has been ordered and parainfluenza has been ordered too. A rhinovirus has been ordered. They are pending. ASSESSMENT: Ms. Essie Norrispard with: 1. Pulmonary fibrosis. 2. Chronic obstructive pulmonary disease exacerbation. 3. Acute shortness of breath with hypoxia. 4. Hyperlipidemia. 5. Atrial fibrillation. 6. Coronary artery disease. PLAN: Plan will be to continue her on Zosyn and the patient has been getting her verapamil. Medications will be resumed. We will monitor her temperature and breathing status. Continue on O2 therapy continuously. Consult with Dr. Marinelli. Further recommendation per clinical course. We will continue to monitor the patient. MD RICCARDO SanchezJ/MODL /[id number]
[2020-01-02] MEDS ORDERED: BUDESONIDE/FORMOTEROL FUMARATE 80/4.5MCG 6.9 GM INH AEROSOL IH SCH (09:00)
[2020-01-02] MEDS: SILDENAFIL CITRATE 20 MG TAB PO SCH ×2 (09:21→17:43)
[2020-01-02] MEDS: PANTOPRAZOLE SOD 40 MG TABEC PO SCH ×2 (09:21→17:43)
[2020-01-02] MEDS: ALBUTEROL/IPRATROPIUM 3 ML NEB NEB SCH ×3 (12:00→19:25)
[2020-01-02 15:06] LABS: CREATINE KINASE 26 IU/L (29-168)
[2020-01-02 17:59] LABS: INR 2.26; PROTHROMBIN TIME 26.6 seconds (11.9-14.5)
[2020-01-02] MEDS: WARFARIN SOD 5 MG TAB PO SCH (18:03)
--- NOTE | 2020-01-02 19:14 | NUR ---
Bedside shift report given to oncoming nurse. Patient is resting in bed. No s/s of distress noted at this time. Call light within reach. Bed in the lowest position.
--- NOTE | 2020-01-02 19:15 | NUR ---
patient received awake, alert, lying quietly in bed. no c/o pain noted. 02/2.5l/nc in use. pm assessment complete. patient instructed to call for assistance when needed.
--- NOTE | 2020-01-02 19:21 | Consultation ---
DATE OF CONSULTATION: REASON FOR CONSULTATION: Bronchitis, COPD, rule out COVID-19. HISTORY OF PRESENT ILLNESS: Ms. Essie Elmore who have interstitial lung disease, chronic atrial fibrillation, COPD, bronchitis and fibrosis, who was in usual state of health and was treated for upper respiratory symptoms about a week ago. She used her nebulizer. She was given antibiotic without any improvement. She comes here with shortness of breath and there was no fever, no chills, no sore throat. The patient has history of pulmonary fibrosis, atrial fibrillation, coronary artery disease, peripheral vascular disease, hypertension. PAST SURGICAL HISTORY: CABG in 1998, stent to the left femoral artery, fem-pep bypass, cholecystectomy. She also have osteoporosis. ALLERGIES: NKA. SOCIAL HISTORY: There is no smoking, drug abuse or alcohol abuse. FAMILY HISTORY: Otherwise unremarkable. The patient was seen and examined. Chart reviewed. The patient is currently on DuoNeb, Zosyn and Coumadin. LABORATORY DATA: Her cultures still pending. Her white count 6.5, hemoglobin 13.4, hematocrit 43. Her respiratory panel still pending. Her CT of the chest, which was done and showed that she had extensive pulmonary fibrotic changes. PHYSICAL EXAMINATION: GENERAL: She is currently alert, oriented, does not seem to be in acute distress. VITAL SIGNS: Stable, currently afebrile. HEENT: She is not icteric. NECK: Supple. CHEST: Clear. Heart: S1, S2. ABDOMEN: Soft. Bowel sounds present. No tenderness. EXTREMITIES: No edema. SKIN: No rash. IMPRESSION: 1. Acute exacerbation of chronic obstructive pulmonary disease. 2. Pulmonary fibrosis. 3. History of chronic obstructive pulmonary disease. 4. History of hyperlipidemia. 5. Atrial fibrillation. 6. Chronic renal disease. RECOMMENDATION: We will put the patient on Rocephin and azithromycin. Respiratory panel was sent including COVID-19 since the outbreak. But clinically seems to be stable. Keep on droplet isolation until we get influenza and COVID-19 result. MD ELINA Pillai/CECE /[id number]
--- NOTE | 2020-01-02 20:32 | Consultation ---
DATE OF CONSULTATION: Pulmonary Consultation REASON FOR CONSULT: Shortness of breath. HISTORY OF PRESENT ILLNESS: Ms. Elmore is a 74-year-old female, she came in with shortness of breath. No upper respiratory symptoms. She was started on nebulizer. She started feeling better. The symptoms have been going on about a week progressively getting worse. She has history of pulmonary fibrosis and pulmonary hypertension. She is known to me from previous admission. She sees Dr. Elena as an outpatient. She has been isolated for droplet precaution. REVIEW OF SYSTEMS: Review of systems is negative. GENERAL: Denies any fever or chills. HEAD: Denies any head trauma. ENT: Denies any earache. CVS: Denies any chest pain. RESPIRATORY: Shortness of breath. The rest of the review of systems are negative except as in HPI. PAST MEDICAL HISTORY: Pulmonary fibrosis, hypertension, chronic respiratory failure, coronary artery disease, atrial fibrillation. FAMILY AND SOCIAL HISTORY: She does not smoke. Does not drink. Physically, she has not contacted anyone with COVID. PHYSICAL EXAMINATION: VITAL SIGNS: Temperature 96.4, pulse of 68, blood pressure 113/67, respiratory rate of 18. CHEST: Few reduced air entry. HEART: S1, S2 audible. ABDOMEN: Soft. EXTREMITIES: No pedal edema. NEUROLOGIC: Awake and alert. LABORATORY DATA: Labs reviewed. CT chest, I reviewed the images. The patient has pulmonary fibrosis. No evidence of pneumonia, but extensive fibrotic changes and honeycombing. ASSESSMENT/PLAN: Ms. Elmore is a 74-year-old with pulmonary fibrosis, came in with shortness of breath and respiratory symptoms. IV antibiotics per ID recommendation. The patient is on Revatio for pulmonary hypertension, which will be continued. COVID-19 testing has been sent and it is pending. Thank you for this consult. MD GIANNI Alexander/CECE /[id number]
[2020-01-02] MEDS: SIMVASTATIN 20 MG TAB PO SCH (20:41)
[2020-01-03] VITALS (7 sets, daily range): BP systolic 108–139; BP diastolic 59–80
[2020-01-03] MEDS: PIPER-TAZ 3.375 GM 50 ML IV SCH ×4 (05:59→23:54)
[2020-01-03] MEDS: ALBUTEROL/IPRATROPIUM 3 ML NEB NEB SCH ×4 (07:00→19:38)
--- NOTE | 2020-01-03 07:00 | NUR ---
RECEIVED REPORT FROM LOPPER NURSE, PATIENT IS A&OX3, LAYING IN BED, NO DISTRESS NOTED, BED IS LOW AND LOCKED, SIDE RAIL UPX2, CALL LIGHT WITHIN REACH.
--- NOTE | 2020-01-03 07:38 | Progress Note ---
DATE: SUBJECTIVE: The patient came in with acute shortness of breath and [id number] hypoxia. The patient is feeling better, but continues to cough and have rib pain on coughing, short of breath on exertion. Positive for wheezes, which are audible. History of interstitial lung disease, history of pulmonary fibrosis, and history of COPD and osteoporosis. CURRENT MEDICATIONS: 1. twice a day. 2. Furosemide once a day. 3. Pantoprazole. 4. Piperacillin. 5. Verapamil. 6. Warfarin. The patient is also on for her pulmonary fibrosis 20 mg twice a day, which will be restarted. OBJECTIVE: VITAL SIGNS: Temperature is 98.7, T-max of 99.1 respirations of 18, pulse oximetry of 94%. HEENT: Normocephalic, atraumatic. CVS: S1 and S2 normal. Distant. LUNGS: Positive for rhonchi bilaterally and inspiratory wheezes. Decreased air entry into all lung wall. ABDOMEN: Nontender, nondistended. EXTREMITIES: Positive for trace edema. LABORATORY DATA: Pending today. Coags are normal. Chemistries are normal. The patient is currently also on Zosyn. Serology showed so far coronavirus has been negative. PCR is pending and rhinovirus is positive. ASSESSMENT: Ms. Essie Elmore with pulmonary fibrosis, acute exacerbation of chronic obstructive pulmonary disease. PLAN: 1. Can discontinue the antibiotics. White count is normal. 2. Pulmonary fibrosis, continue on Revatio. 3. Chronic obstructive pulmonary disease. Continue on Symbicort. 4. Hyperlipidemia. Continue cholesterol medication. 5. Osteoporosis. The patient has been advised to take enough calcium and also do some weightbearing exercises. For further information, look in the chart. Possible discharge in 1 to 2 days depending on the progression of the disease and also decrease in symptoms of the [id number] respiratory failure. MD ELIZA Sanchez/MODL /[id number]
[2020-01-03] MEDS: BUDESONIDE/FORMOTEROL FUMARATE 80/4.5MCG 6.9 GM INH AEROSOL IH SCH ×2 (07:59→19:38)
[2020-01-03] MEDS: ACETAMINOPHEN/CODEINE 300MG - 30MG TAB PO PRN ×2 (08:50→20:15)
[2020-01-03] MEDS: PANTOPRAZOLE SOD 40 MG TABEC PO SCH ×2 (08:58→17:08)
[2020-01-03] MEDS: SILDENAFIL CITRATE 20 MG TAB PO SCH ×2 (08:58→17:08)
--- NOTE | 2020-01-03 18:53 | NUR ---
GAVE REPORT TO ONCOMING NURSE, NO DISTRESS NOTED, BED LOW AND LOCKED, SIDE RAIL UPX2, CALL LIGHT WITHIN REACH.
--- NOTE | 2020-01-03 19:02 | NUR ---
patient received awake, alert, lying quietly in bed. patient c/o mild sore throat. call placed to re: sore throat. pm assessment complete. patient instructed to call for assistance when needed.
[2020-01-03] MEDS: VERAPAMIL HCL 120 MG TABSR PO SCH (20:15)
[2020-01-03] MEDS: SIMVASTATIN 20 MG TAB PO SCH (20:15)
[2020-01-03] MEDS ORDERED: CHLORASEPTIC SPRAY 177 ML BTL MM PRN (20:30)
[2020-01-03] MEDS ORDERED: OXYMETAZOLINE HCL 0.05% NAS 1 SPRAY BTL PRN (20:30)
[2020-01-04] VITALS (7 sets, daily range): BP systolic 99–127; BP diastolic 58–78
[2020-01-04] MEDS: PIPER-TAZ 3.375 GM 50 ML IV SCH ×3 (05:44→17:59)
[2020-01-04] MEDS: ALBUTEROL/IPRATROPIUM 3 ML NEB NEB SCH (07:00)
[2020-01-04] MEDS: PANTOPRAZOLE SOD 40 MG TABEC PO SCH ×2 (07:25→17:00)
[2020-01-04] MEDS: BUDESONIDE/FORMOTEROL FUMARATE 80/4.5MCG 6.9 GM INH AEROSOL IH SCH ×2 (08:05→19:00)
--- NOTE | 2020-01-04 08:50 | NUR ---
DR MERA PA TO SEE PT.
[2020-01-04] MEDS: SILDENAFIL CITRATE 20 MG TAB PO SCH ×2 (09:00→17:00)
--- NOTE | 2020-01-04 09:30 | NUR ---
ASSESSMENT COMPLECTED. PAIN IN ST SHOULDER AREA AND BACK. PT ANDERS BAH.
[2020-01-04] MEDS: ACETAMINOPHEN/CODEINE 300MG - 30MG TAB PO PRN ×2 (10:05→20:23)
--- NOTE | 2020-01-04 10:05 | NUR ---
PT COMPLAINED OF PAIN MEDICATED ORDERED
--- NOTE | 2020-01-04 11:07 | Progress Note ---
DATE: SUBJECTIVE: Patient is a 74-year-old female with a history of idiopathic pulmonary fibrosis, pulmonary hypertension, and also COPD and asthma. Patient continues to be short of breath walking to the bathroom from her bed, makes her real short of breath. Patient's medications are renewed. Currently on Zosyn and sildenafil or Revatio for her pulmonary hypertension. No chest pain. Patient's COVID-19 is still pending. MICROBIOLOGY: Blood cultures are negative. OBJECTIVE/PHYSICAL EXAMINATION: VITAL SIGNS: Temperature is 97, T-max of 99.4 on 01/02, respirations of 18, pulse oximetry of 95% on 2 L. HEENT: Normocephalic and atraumatic. Pupils are reactive. CVS: S1 and S2 normal. Regular rate and rhythm. ABDOMEN: Nontender. Nondistended. EXTREMITIES: No clubbing, no cyanosis, no edema. LUNGS: Decreased air entry. Positive for bilateral rhonchi. MUSCULOSKELETAL: Patient is kyphotic and osteoporotic. LABORATORY VALUES: Chemistries not done. No laboratories were done today. ASSESSMENT: Ms. Essie Norrispard with: 1. Pulmonary fibrosis. 2. Acute exacerbation of chronic obstructive pulmonary disease. 3. Hyperlipidemia. 4. Osteoporosis. PLAN: Continue with Zosyn at this time. We will defer from giving her steroids at this time. Also, patient has not received a COVID-19 results. We will continue monitoring for that and waiting for that. Further recommendation on clinical course. MD ELIZA Sanchez/LILIBETHL /[id number]
[2020-01-04] MEDS: WARFARIN SOD 5 MG TAB PO SCH (17:00)
--- NOTE | 2020-01-04 18:48 | NUR ---
report given to on coming shift
[2020-01-04] MEDS: IPRATROPIUM/ALBUTEROL SULFATE 4 GM INH INH SCH ×2 (19:00→20:20)
--- NOTE | 2020-01-04 19:38 | NUR ---
Received bedside report from day nurse. Patient awake and sitting up in bed, no s/s of distress at this time. Bed locked and in low position, call light placed within reach. All safety measures in place. Will continue to monitor.
[2020-01-04] MEDS: VERAPAMIL HCL 120 MG TABSR PO SCH (20:23)
[2020-01-04] MEDS: SIMVASTATIN 20 MG TAB PO SCH (20:23)
[2020-01-05] VITALS (9 sets, daily range): BP systolic 100–139; BP diastolic 59–88
[2020-01-05] MEDS: PIPER-TAZ 3.375 GM 50 ML IV SCH ×5 (00:49→23:30)
--- NOTE | 2020-01-05 00:49 | NUR ---
IV to left forearm leaking. New 22g IV started to left wrist using aseptic technique.
[2020-01-05] MEDS: IPRATROPIUM/ALBUTEROL SULFATE 4 GM INH INH SCH ×3 (01:00→13:58)
[2020-01-05 05:56] LABS: BASOPHILS % 0.4 % (0.0-1.0); EOSINOPHILS # (AUTO) 0.2 (0.0-0.4); EOSINOPHILS % 3.6 % (0.0-6.0); HEMATOCRIT 34.7 % (34.2-44.1); HEMOGLOBIN 11.3 g/dL (12.0-16.0); LYMPHOCYTES # (AUTO) 1.3 (1.0-3.2); LYMPHOCYTES % 24.5 % (18.0-39.1); MEAN CORPUSCULAR HEMOGLOBIN 30.5 pg (28-32); MEAN CORPUSCULAR HGB CONC 32.6 g/dL (31-35); MEAN CORPUSCULAR VOLUME 93.8 fL (81-99); MONOCYTES # (AUTO) 0.6 (0.2-0.8); MONOCYTES % 11.7 % (4.4-11.3); NEUTROPHILS # (AUTO) 3.2 (2.1-6.9); NEUTROPHILS % 59.4 % (38.7-80.0); PLATELET COUNT 117 x10e3/uL (140-360); RED CELL DISTRIBUTION WIDTH 14.3 % (11.7-14.4)
[2020-01-05] MEDS: BUDESONIDE/FORMOTEROL FUMARATE 80/4.5MCG 6.9 GM INH AEROSOL IH SCH ×2 (06:16→20:22)
[2020-01-05 06:19] LABS: ANION GAP 9.9 mmol/L (8-16); BLOOD UREA NITROGEN 10 mg/dL (7-26); BUN/CREATININE RATIO 15 (6-25); CALCIUM 8.5 mg/dL (8.4-10.2); CARBON DIOXIDE 25 mmol/L (22-29); CHLORIDE 106 mmol/L (98-107); CREATININE, SERUM 0.68 mg/dL (0.57-1.11); EST GLOMERULAR FILTRATION RATE > 60 ML/MIN (60-); GLUCOSE 83 mg/dL (74-118); POTASSIUM 3.9 mmol/L (3.5-5.1); SODIUM 137 mmol/L (136-145)
--- NOTE | 2020-01-05 07:06 | Progress Note ---
DATE: SUBJECTIVE: The patient is a 74-year-old female, who came with an acute shortness of breath, exacerbation of COPD, exacerbation for pulmonary fibrosis still currently complaints of shortness of breath on walking to the bathroom. Does have hypoxia on walking. OBJECTIVE: VITAL SIGNS: Temperature is 96.3, pulse of 60, respirations 18, blood pressure is 100/59, pulse oximetry of 94% on 2 L of oxygen. HEENT: Normocephalic and atraumatic. LUNGS: Decreased air entry. Positive for rhonchi bilaterally. ABDOMEN: Nontender and nondistended. CVS: S1 and S2 normal. Regular rhythm. Trace edema present. LABORATORY VALUES: White count is 5.3, hemoglobin of 11.3. Chemistry shows; sodium 137, potassium 3.9, BUN of 10, creatinine 0.68. Troponins have been trended to be negative. Coags are normal. INR 2.26. Microbiology, no growth and COVID-19 was negative. ASSESSMENT: Ms. Essie Norrispard with: 1. Pulmonary fibrosis. 2. Acute exacerbation of chronic obstructive pulmonary disease. 3. Acute exacerbation of asthma. 4. Hyperlipidemia. 5. Osteoporosis. PLAN: Continue on Zosyn, can be tapered off and can be discharged if it is okay with ID. Continue to monitor the patient. Further recommendation per clinical course. She can be discharged if okay with ID and Pulmonary today. MD ELIZA Sanchez/MODL /[id number]
--- NOTE | 2020-01-05 07:13 | NUR ---
Bedside report given to day nurse. Patient awake and resting in bed, no s/s of distress at this time. All safety measures in place.
[2020-01-05] MEDS: SILDENAFIL CITRATE 20 MG TAB PO SCH ×2 (09:47→17:15)
[2020-01-05] MEDS: PANTOPRAZOLE SOD 40 MG TABEC PO SCH ×2 (09:47→17:15)
[2020-01-05] MEDS: PREDNISONE 20 MG TAB PO SCH (14:54)
[2020-01-05] MEDS: SIMVASTATIN 20 MG TAB PO SCH (20:23)
[2020-01-05] MEDS: VERAPAMIL HCL 120 MG TABSR PO SCH (20:23)
[2020-01-05] MEDS: ACETAMINOPHEN/CODEINE 300MG - 30MG TAB PO PRN (20:23)
--- NOTE | 2020-01-05 20:30 | NUR ---
Received report from night nurse (Ying MTZ). Pt is alert and oriented x3. On droplet isolation for positive Rhinovirus. Pt ambulatory in room prn and is on 2.5L NC. Pt on scheduled breathing treatments. Pt on scheduled IV antibiotics. Otherwise condition stable and no complaints of discomfort at this time. Call moore within reach. Will monitor pt closely.
[2020-01-06] MEDS: IPRATROPIUM/ALBUTEROL SULFATE 4 GM INH INH SCH ×3 (03:24→12:50)
[2020-01-06 04:00] VITALS: BP 109/62
[2020-01-06] MEDS: PIPER-TAZ 3.375 GM 50 ML IV SCH ×2 (06:18→12:07)
--- NOTE | 2020-01-06 06:42 | NUR ---
Dr. Clinton came on the unit and verbally informed nurse (Dario) that he will order to discharge patient home today. Awaiting on discharge orders.
[2020-01-06 07:15] VITALS: BP 139/76
--- NOTE | 2020-01-06 07:15 | NUR ---
PATIENT SITTING UP IN BED WATCHING TV, NO DISTRESS NOTED. O2 IN PLACE VIA N/C. BED IN LOWER POSITION, CALL LIGHT AT REACH.
[2020-01-06 07:27] VITALS: BP 139/76
[2020-01-06] MEDS: BUDESONIDE/FORMOTEROL FUMARATE 80/4.5MCG 6.9 GM INH AEROSOL IH SCH (07:50)
--- NOTE | 2020-01-06 07:50 | Progress Note ---
DATE: SUBJECTIVE: The patient came in with acute shortness of breath, exacerbation of COPD and exacerbation of pulmonary fibrosis, currently doing better. Steroids were started yesterday. The patient was on Zosyn as per ID. Currently doing well. No complaints. COVID-19 was negative. The patient wants to go home. OBJECTIVE: VITAL SIGNS: Temperature is 96, pulse of 59, respirations 18, blood pressure is 109/62, and pulse oximetry of 99% on 2 L of oxygen. The patient is O2 dependent. HEENT: Normocephalic and atraumatic. Pupils are reactive. CVS: S1 and S2 normal. Regular rate and rhythm. LUNGS: Decreased air entry. Positive for crackles. EXTREMITIES: No clubbing, no cyanosis, no edema. LABORATORY VALUES: Yesterday's white count was normal. Chemistries yesterday were normal too. ASSESSMENT: Ms. Essie Elmore is with; 1. Pulmonary fibrosis. 2. Shortness of breath. 3. Acute on chronic hypoxia. 4. Viral illness and chronic obstructive pulmonary disease exacerbation. PLAN: Discharge home today with prednisone. The patient has been given strict warning on isolation secondary to her lung condition. The patient is not to go out in lieu of the COVID-19 crisis. Further recommendation per clinical course. MD ELIZA Sanchez/MODL /[id number]
[2020-01-06] MEDS: SILDENAFIL CITRATE 20 MG TAB PO SCH (09:12)
[2020-01-06] MEDS: PREDNISONE 20 MG TAB PO SCH (09:12)
[2020-01-06] MEDS: PANTOPRAZOLE SOD 40 MG TABEC PO SCH (09:12)
--- NOTE | 2020-01-06 11:06 | NUR ---
PATIENT AMBUBATING IN HALLWAY WITH PHYSICAL THERAPY, NO COMPLAIN VOICED. WILL CLOSELY MONITOR.
[2020-01-06] MEDS: ACETAMINOPHEN/CODEINE 300MG - 30MG TAB PO PRN (11:25)
[2020-01-06 11:29] VITALS: BP 131/67
--- NOTE | 2020-01-06 12:33 | NUR ---
IMM LETTER EXPLAINED TO PT OVER THE PHONE. PT VERBALIZED UNDERSTANDING. IMM LETTER SIGNED AND COSIGNED BY BIBI LAWRENCE. COPY TO PT AND COPY TO CHART.
--- NOTE | 2020-01-06 14:15 | NUR ---
PATIENT DISCHARGED HOME. DISCHARGE INSTRUCTIONS, PRESCRIPTION, AND FOLLOW UP GIVEN TO PATIENT, SHE VERBALIZED UNDERSTANDING. IV TO LEFT WRIST REMOVED WITH TIP INTACT. ALL PERSONAL ITEMS TAKEN WITH PATIENT. LEFT UNIT PER WHEEL CHAIR TO FRONT LOBBY IN STABLE CONDITION.
== END 2020-01-06 14:06 | disposition home or self-care (01) | DRG 196 ==
LOC: ER 19:06 → ERHOLD 22:36 → MED/SURG3 22:48
PROVIDERS: ADMIT Family Medicine; ATTEND Family Medicine
DX: J84.112 Idiopathic pulmonary fibrosis (principal); J18.9 Pneumonia, unspecified organism; J96.21 Acute and chronic respiratory failure with hypoxia; J44.1 Chronic obstructive pulmonary disease with (acute) exacerbation; I48.20 Chronic atrial fibrillation, unspecified; I50.1 Left ventricular failure, unspecified; M80.88XA Other osteoporosis with current pathological fracture, vertebra(e), initial encounter for fracture; Z88.2 Allergy status to sulfonamides; Z91.041 Radiographic dye allergy status; E78.5 Hyperlipidemia, unspecified; N18.9 Chronic kidney disease, unspecified; R09.02 Hypoxemia; I27.81 Cor pulmonale (chronic); Z03.818 Encounter for observation for suspected exposure to other biological agents ruled out
CPT/HCPCS: 36415; 71045; 71250; 80048; 80053; 82550; 82553; 83605; 83880; 84484; 85025; 85610; 87040; 87633; 87635; 93005; 94640; 94664; 99284; J2543; J7050; J7512

== ENCOUNTER 2020-04-08 19:45 | Emergency (ER) | payer MEDICARE ==
[~2020-04-08] VITALS: Ht 157.5 cm; Wt 65.8 kg
[~2020-04-08 19:45] MED LIST changes: +VERAPAMIL ER120 MG PO
--- NOTE | 2020-04-08 20:09 | Emergency Department Note ---
History of Present Illnes History of Present Illness Chief Complaint: Extremity Trauma/Pain History of Present Illness This is a 74 year old female presents to the ED for wound of the L LE after she placed an adhesive bandage to cover a cat bite this AM. States that when she pulled the bandage off, she tore skin in the region. Increasing dyspnea since today. PMH of COPD . Arrival Mode: Car Onset (how long ago): day(s) (1) Location: LLE Severity: mild Onset quality: gradual Duration (how long): day(s) (1) Timing of current episode: constant Progression: worsening Relieving factors: none Exacerbating factors: none Associated symptoms: Reports shortness of breath; Denies fever/chills Treatments prior to arrival: none Past Medical/Family History Physician Review I have reviewed the patient's past medical and family history. Any updates have been documented here. Past Medical History Recent Fever: Yes Clinical Suspicion of Infectio: Yes New/Unexplained Change in Ment: No Past Medical History: Hypertension, COPD, A-Fib, CAD, GERD Other Medical History: PULMONARY HYPERTENSION RIB FX "SCARRING ON LUNGS WHICH SOMETIMES LOOKS LIKE PNEUMONIA" Past Surgical History: Cholecysctectomy, CABG, T&A Other Surgery: TRIPLE BYPASS ILIAC STENT PLACEMENT Social History Smoking Cessation: Former smoker Alcohol Use: None Any Illegal Drug Use: No Other Last Tetanus: UTD Review of Systems Review of Systems Constitutional: Reports no symptoms EENTM: Reports no symptoms Cardiovascular: Reports no symptoms Respiratory: Reports dyspnea Gastrointestinal: Reports no symptoms Genitourinary: Reports no symptoms Musculoskeletal: Reports no symptoms Integumentary: Reports poor turgor, Reports other (wound) Neurological: Reports no symptoms Psychological: Reports no symptoms Endocrine: Reports no symptoms Hematological/Lymphatic: Reports no symptoms Physical Exam Related Data Allergies: Coded Allergies: iodine (Verified Allergy, Mild, 07/22/18) Sulfa (Sulfonamide Antibiotics) (Verified Allergy, Unknown, 08/30/18) Triage Vital Signs Vital Signs Date Time Temp Pulse Resp B/P (MAP) Pulse Ox O2 Delivery O2 Flow Rate FiO2 04/08/20 19:56 98.4 80 20 143/104 92 Nasal Cannula 2.0 Vital signs reviewed: Yes Physical Exam CONSTITUTIONAL Constitutional: Present cachectic HENT HENT: Present normocephalic, Present atraumatic, Present oropharynx clear/moist, Present nose normal HENT L/R: Present left ext ear normal, Present right ext ear normal EYES Eyes: Reports PERRL, Reports conjunctivae normal NECK Neck: Present ROM normal PULMONARY Pulmonary: Present effort normal, Present breath sounds normal CARDIOVASCULAR Cardiovascular: Present irregular rhythm, Present heart sounds normal, Present capillary refill normal, Present normal rate GASTROINTESTINAL Abdominal: Present soft, Present nontender, Present bowel sounds normal GENITOURINARY Genitourinary: Present exam deferred SKIN Skin: Present other (2 x puncture wound L lower leg. Skin tear 6 cm x 2 cm gaping) MUSCULOSKELETAL Musculoskeletal: Present tenderness (b/l LE 2+) NEUROLOGICAL Neurological: Present alert, Present oriented x 3, Present no gross motor or sensory deficits PSYCHOLOGICAL Psychological: Present mood/affect normal, Present judgement normal Results Laboratory Lab results reviewed: Yes Laboratory comments Laboratory Tests Test 04/08/20 20:20 White Blood Count 5.71 x10e3/uL (4.8-10.8) Red Blood Count 4.13 x10e6/uL (3.6-5.1) Hemoglobin 12.1 g/dL (12.0-16.0) Hematocrit 40.0 % (34.2-44.1) Mean Corpuscular Volume 96.9 fL (81-99) Mean Corpuscular Hemoglobin 29.3 pg (28-32) Mean Corpuscular Hemoglobin Concent 30.3 g/dL (31-35) Red Cell Distribution Width 15.2 % (11.7-14.4) Platelet Count 205 x10e3/uL (140-360) Neutrophils (%) (Auto) 58.1 % (38.7-80.0) Lymphocytes (%) (Auto) 29.4 % (18.0-39.1) Monocytes (%) (Auto) 10.2 % (4.4-11.3) Eosinophils (%) (Auto) 1.4 % (0.0-6.0) Basophils (%) (Auto) 0.7 % (0.0-1.0) Neutrophils # (Auto) 3.3 (2.1-6.9) Lymphocytes # (Auto) 1.7 (1.0-3.2) Monocytes # (Auto) 0.6 (0.2-0.8) Eosinophils # (Auto) 0.1 (0.0-0.4) Basophils # (Auto) 0.0 (0.0-0.1) Absolute Immature Granulocyte (auto 0.01 x10e3/uL (0-0.1) Sodium Level 141 mmol/L (136-145) Potassium Level 4.3 mmol/L (3.5-5.1) Chloride Level 109 mmol/L (98-107) Carbon Dioxide Level 25 mmol/L (22-29) Anion Gap 11.3 mmol/L (8-16) Blood Urea Nitrogen 13 mg/dL (7-26) Creatinine 0.76 mg/dL (0.57-1.11) Estimat Glomerular Filtration Rate > 60 ML/MIN (60-) BUN/Creatinine Ratio 17 (6-25) Glucose Level 92 mg/dL (74-118) Calcium Level 9.1 mg/dL (8.4-10.2) Total Bilirubin 0.5 mg/dL (0.2-1.2) Aspartate Amino Transf (AST/SGOT) 22 IU/L (5-34) Alanine Aminotransferase (ALT/SGPT) 16 IU/L (0-55) Alkaline Phosphatase 103 IU/L (40-150) Creatine Kinase 64 IU/L (29-168) Creatine Kinase MB 1.70 ng/mL (0-5.0) Troponin I 0.004 ng/mL (0-0.300) B-Type Natriuretic Peptide 115.1 pg/mL (0-100) Total Protein 6.7 g/dL (6.5-8.1) Albumin 3.4 g/dL (3.5-5.0) Globulin 3.3 g/dL (2.3-3.5) Albumin/Globulin Ratio 1.0 (0.8-2.0) Imaging Imaging results reviewed: Yes Impressions [place] [id number] Patient Name: NOEMI THRASHER MR #: [id number] : 1945 Age/Sex: 74/F Req #: [id number] Adm Physician: Ordered by: PAUL RUSSELL DO Report #: [id number] Location: ER Room/Bed: Procedure: [id number] DX/CHEST SINGLE (PORTABLE) Exam Date: 04/08/20 Exam Time: 2049 REPORT STATUS: Signed EXAMINATION: CHEST SINGLE (PORTABLE) INDICATION: Shortness of breath COMPARISON: 01/01/2020 FINDINGS: AP view TUBES and LINES: None. LUNGS: Patchy reticular interstitial opacities throughout both lungs, not significantly changed when compared to the previous chest CT from December 2019. PLEURA: No pleural effusion or pneumothorax. HEART AND MEDIASTINUM: The cardiomediastinal silhouette is unremarkable. BONES AND SOFT TISSUES: No acute osseous lesion. Sternotomy wires. Soft tissues are unremarkable. UPPER ABDOMEN: No free air under the diaphragm. IMPRESSION: Diffuse reticular interstitial opacities consistent with moderate interstitial lung disease, not significantly changed in appearance when compared to the previous CT scan from December 2019. Superimposed infection or edema is difficult to exclude. Signed by: Amparo Manrique MD on 04/08/2020 9:21 PM Dictated By: AMPARO MANRIQUE MD 20 Transcribed By: KEREN on 04/08/202120 COPY TO: PAUL RUSSELL DO~ Procedures 12 Lead ECG Interpretation ECG Interpretation : ECG: ECG 1 Cardroom Supervisor: Interpreted by ED physician Date: Apr 08, 2020 Time: 20:22 Prior ECG tracings: reviewed Rhythm: atrial fibrillation Rate: normal BPM: 93 QRS axis: normal ST segments normal: No ST segment flattening: V5, V6 T waves normal: Yes Clinical Impression: non-specific ECG Assessment & Plan Medical Decision Making MDM 74 yof presents with wound and noticeable dyspnea to the ED . Diff Dx : Pneumonia, COVID_19 infection, sepsis, COPD exacerbation, cellullitis, cat scratch fever, laceration, skin tear. Rx augmentin, prednisone, albuterol Assessment & Plan Final Impression: (1) Skin tear of left lower leg without complication (2) Hypoxia (3) Cat bite involving extremity (4) COPD exacerbation Depart Disposition: HOME, SELF-CARE Last Vital Signs Date Time Temp Pulse Resp B/P (MAP) Pulse Ox O2 Delivery O2 Flow Rate FiO2 04/08/20 19:56 98.4 80 20 143/104 92 Nasal Cannula 2.0 Home Meds Reported Medications Verapamil Hcl (VERAPAMIL ER) 120 Mg Cap24h.pel, 1 CAP PO DAILY 01/01/20 Furosemide (FUROSEMIDE) 40 Mg Tablet, 40 MG PO DAILY PRN for .LEG SWELLING 08/30/18 Sildenafil Citrate (REVATIO) 20 Mg Tab, 20 MG PO BID 08/30/18 Warfarin Sodium (COUMADIN) 5 Mg Tablet, 5 MG PO .EVERY OTHER DAY 08/30/18 Acetaminophen/Codeine* (TYLENOL # 3*) 1 Ea Tab, 1 TAB PO BID PRN for PAIN 08/30/18 Ipratropium/Albuterol Sulfate (IPRAT-ALBUT 0.5-3(2.5) MG/3 ML) 3 Ml Ampul.neb, 1 DOSE NEB QID 08/30/18 Budesonide/Formoterol Fumarate (SYMBICORT 80-4.5 MCG INHALER) 10.2 Gm Hfa.aer.ad, 2 EACH INH BID, EACH 07/22/18 Simvastatin (SIMVASTATIN) 20 Mg Tablet, 20 MG PO 2099, EA 07/02/15 Omeprazole (OMEPRAZOLE) 40 Mg Capsule.dr, 40 MG PO BID 10/10/12 Medications in the ED Methylprednisolone Sodium Succinate 125 mg ONCE STAT IV ; Start 04/08/20 at 20:21; Stop 04/08/20 at 20:28; Status PAUL GOSS DO Apr 08, 2020 20:09
[2020-04-08] MEDS ORDERED: METHYLPREDNISOLONE SOD SUCC 125 MG/2ML VIAL IV STA (20:21)
[2020-04-08 20:53] LABS: BASOPHILS % 0.7 % (0.0-1.0); EOSINOPHILS # (AUTO) 0.1 (0.0-0.4); EOSINOPHILS % 1.4 % (0.0-6.0); HEMOGLOBIN 12.1 g/dL (12.0-16.0); LYMPHOCYTES # (AUTO) 1.7 (1.0-3.2); LYMPHOCYTES % 29.4 % (18.0-39.1); MEAN CORPUSCULAR HEMOGLOBIN 29.3 pg (28-32); MEAN CORPUSCULAR HGB CONC 30.3 g/dL (31-35); MEAN CORPUSCULAR VOLUME 96.9 fL (81-99); MONOCYTES # (AUTO) 0.6 (0.2-0.8); MONOCYTES % 10.2 % (4.4-11.3); NEUTROPHILS # (AUTO) 3.3 (2.1-6.9); NEUTROPHILS % 58.1 % (38.7-80.0); PLATELET COUNT 205 x10e3/uL (140-360); RED BLOOD COUNT 4.13 x10e6/uL (3.6-5.1); RED CELL DISTRIBUTION WIDTH 15.2 % (11.7-14.4)
[2020-04-08 21:18] LABS: ALANINE AMINOTRANSFERASE 16 IU/L (0-55); ALBUMIN 3.4 g/dL (3.5-5.0); ALKALINE PHOSPHATASE 103 IU/L (40-150); ANION GAP 11.3 mmol/L (8-16); BLOOD UREA NITROGEN 13 mg/dL (7-26); BUN/CREATININE RATIO 17 (6-25); CALCIUM 9.1 mg/dL (8.4-10.2); CARBON DIOXIDE 25 mmol/L (22-29); CHLORIDE 109 mmol/L (98-107); CREATINE KINASE 64 IU/L (29-168); CREATININE, SERUM 0.76 mg/dL (0.57-1.11); EST GLOMERULAR FILTRATION RATE > 60 ML/MIN (60-); GLUCOSE 92 mg/dL (74-118); POTASSIUM 4.3 mmol/L (3.5-5.1); SODIUM 141 mmol/L (136-145)
--- NOTE | 2020-04-08 21:24 | Diagnostic Imaging Report ---
EXAMINATION: CHEST SINGLE (PORTABLE) INDICATION: Shortness of breath COMPARISON: 01/01/2020 FINDINGS: AP view TUBES and LINES: None. LUNGS: Patchy reticular interstitial opacities throughout both lungs, not significantly changed when compared to the previous chest CT from December 2019. PLEURA: No pleural effusion or pneumothorax. HEART AND MEDIASTINUM: The cardiomediastinal silhouette is unremarkable. BONES AND SOFT TISSUES: No acute osseous lesion. Sternotomy wires. Soft tissues are unremarkable. UPPER ABDOMEN: No free air under the diaphragm. IMPRESSION: Diffuse reticular interstitial opacities consistent with moderate interstitial lung disease, not significantly changed in appearance when compared to the previous CT scan from December 2019. Superimposed infection or edema is difficult to exclude. Signed by: Rajat Quezada MD on 04/08/2020 9:21 PM
[2020-04-08 23:10] VITALS: BP 138/71
== END 2020-04-08 23:22 | disposition home or self-care (01) ==
LOC: ER 20:09
DX: S81.812A Laceration without foreign body, left lower leg, initial encounter (principal); S81.852A Open bite, left lower leg, initial encounter; W55.01XA Bitten by cat, initial encounter; R09.02 Hypoxemia; J44.1 Chronic obstructive pulmonary disease with (acute) exacerbation; I10 Essential (primary) hypertension; I25.10 Atherosclerotic heart disease of native coronary artery without angina pectoris; I48.91 Unspecified atrial fibrillation; K21.9 Gastro-esophageal reflux disease without esophagitis; Z87.891 Personal history of nicotine dependence
CPT/HCPCS: 36415; 71045; 80053; 82550; 82553; 83880; 84484; 85025; 93005; 99283

== ENCOUNTER → 2020-05-23 | Outpatient (CLI) | payer MEDICARE | LOC: RAD 09:21 | PROVIDERS: ATTEND Family Medicine | DX: R60.0 Localized edema (principal) | CPT/HCPCS: 93971 ==

== ENCOUNTER 2020-06-12 19:47 | Inpatient (IN) | payer MEDICARE, OTHER ==
[~2020-06-12] VITALS: Ht 157.5 cm; Wt 56.3 kg
[2020-06-12 20:24] LABS: BASOPHILS % 0.2 % (0.0-1.0); EOSINOPHILS % 0.3 % (0.0-6.0); HEMATOCRIT 37.1 % (34.2-44.1); HEMOGLOBIN 11.4 g/dL (12.0-16.0); LYMPHOCYTES # (AUTO) 0.6 (1.0-3.2); LYMPHOCYTES % 9.3 % (18.0-39.1); MEAN CORPUSCULAR HEMOGLOBIN 28.1 pg (28-32); MEAN CORPUSCULAR HGB CONC 30.7 g/dL (31-35); MEAN CORPUSCULAR VOLUME 91.4 fL (81-99); MONOCYTES # (AUTO) 0.3 (0.2-0.8); MONOCYTES % 4.1 % (4.4-11.3); NEUTROPHILS # (AUTO) 5.7 (2.1-6.9); NEUTROPHILS % 85.8 % (38.7-80.0); PLATELET COUNT 179 x10e3/uL (140-360); RED BLOOD COUNT 4.06 x10e6/uL (3.6-5.1); RED CELL DISTRIBUTION WIDTH 16.3 % (11.7-14.4)
[2020-06-12 20:35] LABS: PARTIAL THROMBOPLASTIN TIME 43.6 seconds (23.8-35.5)
[2020-06-12 20:40] LABS: INR 5.6; PROTHROMBIN TIME 53.2 seconds (11.9-14.5)
[2020-06-12 20:44] LABS: ALANINE AMINOTRANSFERASE 36 IU/L (0-55); ALBUMIN 3.8 g/dL (3.5-5.0); ALBUMIN/GLOBULIN RATIO 1.5 (0.8-2.0); ALKALINE PHOSPHATASE 152 IU/L (40-150); ANION GAP 17.7 mmol/L (8-16); BLOOD UREA NITROGEN 20 mg/dL (7-26); BUN/CREATININE RATIO 26 (6-25); CARBON DIOXIDE 20 mmol/L (22-29); CHLORIDE 108 mmol/L (98-107); CREATINE KINASE 41 IU/L (29-168); CREATININE, SERUM 0.78 mg/dL (0.57-1.11); EST GLOMERULAR FILTRATION RATE > 60 ML/MIN (60-); GLUCOSE 107 mg/dL (74-118); POTASSIUM 4.7 mmol/L (3.5-5.1); SODIUM 141 mmol/L (136-145)
[2020-06-12 20:46] LABS: AMYLASE 28 U/L (25-125); LIPASE 20 U/L (8-78)
[2020-06-12 21:16] LABS: BILIRUBIN,URINE NEGATIVE (NEGATIVE); CLARITY,URINE SL CLOUDY (CLEAR); COLOR,URINE YELLOW (YELLOW); KETONES,URINE NEGATIVE (NEGATIVE); LEUKOCYTE ESTERASE ,URINE NEGATIVE (NEGATIVE); NITRITE,URINE NEGATIVE (NEGATIVE); PROTEIN,URINE DIPSTICK 1+ (NEGATIVE); URINE UROBILINOGEN 1 mg/dL (0.2 - 1)
[2020-06-12 21:24] LABS: AMORPHOUS SEDIMENT,URINE FEW (FEW); BACTERIA,URINE FEW /HPF; EPITHELIAL CELLS,URINE FEW /LPF; RBC,URINE 0-5 /HPF (0-5); WBC,URINE (MAN) 0-5 /HPF (0-5)
[2020-06-12] MEDS ORDERED: FUROSEMIDE INJ 10 MG/ML 4 ML VIAL IV ONE (21:45)
[2020-06-12] MEDS ORDERED: ACETAMINOPHEN/CODEINE 300MG - 30MG TAB PO ONE (21:45)
[2020-06-12] MEDS ORDERED: SODIUM CHLORIDE FLUSH 10 ML SYR INJ PRN (22:15)
[2020-06-13] VITALS (9 sets, daily range): BP systolic 102–150; BP diastolic 55–90
[2020-06-13] MEDS: ALBUTEROL/IPRATROPIUM 3 ML NEB NEB SCH ×4 (03:05→15:20)
[2020-06-13] MEDS: ACETAMINOPHEN/CODEINE 300MG - 30MG TAB PO PRN ×2 (05:18→22:15)
[2020-06-13 06:26] LABS: BASOPHILS % 0.3 % (0.0-1.0); EOSINOPHILS % 0.6 % (0.0-6.0); HEMOGLOBIN 11.4 g/dL (12.0-16.0); LYMPHOCYTES # (AUTO) 1.5 (1.0-3.2); LYMPHOCYTES % 23.3 % (18.0-39.1); MEAN CORPUSCULAR HEMOGLOBIN 29.1 pg (28-32); MEAN CORPUSCULAR HGB CONC 31.7 g/dL (31-35); MEAN CORPUSCULAR VOLUME 91.8 fL (81-99); MONOCYTES # (AUTO) 0.5 (0.2-0.8); MONOCYTES % 8.3 % (4.4-11.3); NEUTROPHILS # (AUTO) 4.4 (2.1-6.9); NEUTROPHILS % 67.2 % (38.7-80.0); PLATELET COUNT 157 x10e3/uL (140-360); RED BLOOD COUNT 3.92 x10e6/uL (3.6-5.1); RED CELL DISTRIBUTION WIDTH 16.2 % (11.7-14.4)
[2020-06-13 06:49] LABS: ALANINE AMINOTRANSFERASE 32 IU/L (0-55); ALBUMIN 3.7 g/dL (3.5-5.0); ALBUMIN/GLOBULIN RATIO 1.5 (0.8-2.0); ALKALINE PHOSPHATASE 143 IU/L (40-150); ANION GAP 18.7 mmol/L (8-16); BLOOD UREA NITROGEN 17 mg/dL (7-26); BUN/CREATININE RATIO 24 (6-25); CALCIUM 8.7 mg/dL (8.4-10.2); CARBON DIOXIDE 24 mmol/L (22-29); CHLORIDE 103 mmol/L (98-107); CREATININE, SERUM 0.72 mg/dL (0.57-1.11); EST GLOMERULAR FILTRATION RATE > 60 ML/MIN (60-); GLUCOSE 86 mg/dL (74-118); POTASSIUM 3.7 mmol/L (3.5-5.1); SODIUM 142 mmol/L (136-145)
[2020-06-13] MEDS: BUDESONIDE/FORMOTEROL FUMARATE 80/4.5MCG 6.9 GM INH AEROSOL IH SCH (07:00)
[2020-06-13 07:45] LABS: CREATINE KINASE MB 1.7 ng/mL (0-5.0)
[2020-06-13] MEDS: PANTOPRAZOLE SOD 40 MG TABEC PO SCH ×2 (08:00→15:24)
[2020-06-13] MEDS: FUROSEMIDE INJ 10 MG/ML 4 ML VIAL IV SCH ×2 (08:00→16:07)
[2020-06-13] MEDS: VERAPAMIL HCL 120 MG TABSR PO SCH (08:00)
[2020-06-13] MEDS: METHYLPREDNISOLONE SOD SUCC 40 MG/ML VIAL 1ML IV SCH (11:49)
[2020-06-13 15:12] LABS: CREATINE KINASE MB 1.5 ng/mL (0-5.0)
[2020-06-13] MEDS: SILDENAFIL CITRATE 20 MG TAB PO SCH (16:07)
[2020-06-13] MEDS: SIMVASTATIN 20 MG TAB PO SCH (21:00)
[2020-06-14] VITALS (8 sets, daily range): BP systolic 117–149; BP diastolic 65–88
[2020-06-14 07:09] LABS: BASOPHILS % 0.2 % (0.0-1.0); HEMATOCRIT 38.2 % (34.2-44.1); HEMOGLOBIN 11.9 g/dL (12.0-16.0); LYMPHOCYTES # (AUTO) 0.6 (1.0-3.2); LYMPHOCYTES % 8.9 % (18.0-39.1); MEAN CORPUSCULAR HEMOGLOBIN 28.7 pg (28-32); MEAN CORPUSCULAR HGB CONC 31.2 g/dL (31-35); MONOCYTES # (AUTO) 0.4 (0.2-0.8); MONOCYTES % 5.9 % (4.4-11.3); NEUTROPHILS # (AUTO) 5.4 (2.1-6.9); NEUTROPHILS % 84.5 % (38.7-80.0); PLATELET COUNT 178 x10e3/uL (140-360); RED BLOOD COUNT 4.15 x10e6/uL (3.6-5.1); RED CELL DISTRIBUTION WIDTH 15.9 % (11.7-14.4)
[2020-06-14] MEDS: BUDESONIDE/FORMOTEROL FUMARATE 80/4.5MCG 6.9 GM INH AEROSOL IH SCH ×2 (07:46→19:00)
[2020-06-14] MEDS: ALBUTEROL/IPRATROPIUM 3 ML NEB NEB SCH ×4 (07:46→19:00)
[2020-06-14] MEDS: METHYLPREDNISOLONE SOD SUCC 40 MG/ML VIAL 1ML IV SCH (07:56)
[2020-06-14] MEDS: PANTOPRAZOLE SOD 40 MG TABEC PO SCH ×2 (07:56→17:35)
[2020-06-14 08:00] LABS: INR 2.98; PROTHROMBIN TIME 32.4 seconds (11.9-14.5)
[2020-06-14 08:10] LABS: ANION GAP 21.2 mmol/L (8-16); BLOOD UREA NITROGEN 17 mg/dL (7-26); BUN/CREATININE RATIO 22 (6-25); CALCIUM 8.9 mg/dL (8.4-10.2); CARBON DIOXIDE 23 mmol/L (22-29); CHLORIDE 99 mmol/L (98-107); CREATININE, SERUM 0.77 mg/dL (0.57-1.11); EST GLOMERULAR FILTRATION RATE > 60 ML/MIN (60-); GLUCOSE 140 mg/dL (74-118); POTASSIUM 4.2 mmol/L (3.5-5.1); SODIUM 139 mmol/L (136-145)
[2020-06-14] MEDS: SILDENAFIL CITRATE 20 MG TAB PO SCH ×2 (08:58→17:35)
[2020-06-14] MEDS: VERAPAMIL HCL 120 MG TABSR PO SCH (08:58)
[2020-06-14] MEDS: BALSAM PERU/CASTOR OIL 60 GM OINT...G. TP SCH ×2 (08:58→09:00)
[2020-06-14] MEDS: FUROSEMIDE INJ 10 MG/ML 4 ML VIAL IV SCH ×2 (08:58→17:35)
[2020-06-14] MEDS ORDERED: BUDESONIDE-FO10.2 G1 INH (11:36)
[2020-06-14] MEDS ORDERED: CEPACOL SORE THROAT LOZENGES PO PRN (17:00)
[2020-06-14] MEDS: ACETAMINOPHEN/CODEINE 300MG - 30MG TAB PO PRN (18:14)
[2020-06-14] MEDS: SIMVASTATIN 20 MG TAB PO SCH (21:30)
[2020-06-15] VITALS (8 sets, daily range): BP systolic 102–124; BP diastolic 66–95
[2020-06-15 06:59] LABS: PROTHROMBIN TIME 23.6 seconds (11.9-14.5)
[2020-06-15] MEDS: ALBUTEROL/IPRATROPIUM 3 ML NEB NEB SCH ×5 (07:00→15:30)
[2020-06-15] MEDS: BUDESONIDE/FORMOTEROL FUMARATE 80/4.5MCG 6.9 GM INH AEROSOL IH SCH (07:00)
[2020-06-15 07:07] LABS: ANION GAP 18.4 mmol/L (8-16); BLOOD UREA NITROGEN 23 mg/dL (7-26); BUN/CREATININE RATIO 30 (6-25); CALCIUM 9.4 mg/dL (8.4-10.2); CARBON DIOXIDE 26 mmol/L (22-29); CHLORIDE 99 mmol/L (98-107); CREATININE, SERUM 0.76 mg/dL (0.57-1.11); EST GLOMERULAR FILTRATION RATE > 60 ML/MIN (60-); GLUCOSE 83 mg/dL (74-118); POTASSIUM 4.4 mmol/L (3.5-5.1); SODIUM 139 mmol/L (136-145)
[2020-06-15] MEDS: PANTOPRAZOLE SOD 40 MG TABEC PO SCH ×2 (08:54→17:09)
[2020-06-15] MEDS: SILDENAFIL CITRATE 20 MG TAB PO SCH ×2 (08:55→17:08)
[2020-06-15] MEDS: VERAPAMIL HCL 120 MG TABSR PO SCH (08:55)
[2020-06-15] MEDS: FUROSEMIDE INJ 10 MG/ML 4 ML VIAL IV SCH ×2 (09:00→17:08)
[2020-06-15] MEDS: BALSAM PERU/CASTOR OIL 60 GM OINT...G. TP SCH (09:00)
[2020-06-15] MEDS: METHYLPREDNISOLONE SOD SUCC 40 MG/ML VIAL 1ML IV SCH (09:02)
[2020-06-15] MEDS ORDERED: WARFARIN SOD 5 MG TAB PO SCH (20:00)
[2020-06-15] MEDS: SIMVASTATIN 20 MG TAB PO SCH (20:33)
[2020-06-15] MEDS: ACETAMINOPHEN/CODEINE 300MG - 30MG TAB PO PRN (20:33)
[2020-06-15] MEDS ORDERED: MONTELUKAST SODIUM 10 MG TAB PO SCH (21:00)
[2020-06-16] VITALS: BP 110/61
[2020-06-16 04:00] VITALS: BP 122/83
[2020-06-16] MEDS: ALBUTEROL/IPRATROPIUM 3 ML NEB NEB SCH (06:35)
[2020-06-16] MEDS: BUDESONIDE/FORMOTEROL 160/4.5MCG INHALER INH SCH ×2 (07:11→09:06)
[2020-06-16 07:40] VITALS: BP 142/77
[2020-06-16 08:54] VITALS: BP 142/77
[2020-06-16] MEDS: FUROSEMIDE INJ 10 MG/ML 4 ML VIAL IV SCH (08:58)
[2020-06-16] MEDS: PANTOPRAZOLE SOD 40 MG TABEC PO SCH (08:58)
[2020-06-16] MEDS: VERAPAMIL HCL 120 MG TABSR PO SCH (08:59)
[2020-06-16] MEDS: SILDENAFIL CITRATE 20 MG TAB PO SCH (08:59)
[2020-06-16] MEDS ORDERED: PREDNISONE 20 MG TAB PO SCH (09:00)
[2020-06-16] MEDS ORDERED: BUDESONIDE/FORMOTEROL 160/4.5MCG INHALER INH SCH (09:00)
[2020-06-16] MEDS ORDERED: ACETAMINOPHEN/CODEINE 300MG - 30MG TAB PO ONE (11:00)
== END 2020-06-16 10:07 | disposition home or self-care (01) | DRG 197 ==
LOC: ER 19:51 → ERHOLD 22:15 → MED/SURG3 23:19
PROVIDERS: ADMIT Family Medicine; ATTEND Family Medicine
DX: J84.10 Pulmonary fibrosis, unspecified (principal); I48.20 Chronic atrial fibrillation, unspecified; J44.1 Chronic obstructive pulmonary disease with (acute) exacerbation; Z79.01 Long term (current) use of anticoagulants; T88.7XXA Unspecified adverse effect of drug or medicament, initial encounter; T45.515A Adverse effect of anticoagulants, initial encounter; M32.9 Systemic lupus erythematosus, unspecified; Z11.59 Encounter for screening for other viral diseases; I25.10 Atherosclerotic heart disease of native coronary artery without angina pectoris; I27.20 Pulmonary hypertension, unspecified; Z95.5 Presence of coronary angioplasty implant and graft; I25.2 Old myocardial infarction; M81.0 Age-related osteoporosis without current pathological fracture; R09.02 Hypoxemia
CPT/HCPCS: 36415; 71045; 80048; 80053; 81001; 82150; 82550; 82553; 83690; 83880; 84443; 84484; 85025; 85610; 85730; 93005; 93306; 94060; 94640; 94664; 99251; 99284; J1940; J2920; J7512; U0002

== ENCOUNTER 2020-07-16 10:07 | Observation (INO) | payer MEDICARE, OTHER ==
[~2020-07-16] VITALS: Ht 157.5 cm; Wt 55.9 kg
[~2020-07-16 10:07] MED LIST changes: +BUDESONIDE-FO10.2 G1 INH
[2020-07-16] MEDS ORDERED: HYDROCODONE/APAP 5MG-325MG TAB PO ONE (10:45)
[2020-07-16] MEDS ORDERED: ALBUTEROL/IPRATROPIUM 3 ML NEB NEB ONE (10:45)
[2020-07-16 15:00] VITALS: BP 145/92
[2020-07-16 15:15] VITALS: BP 145/92
[2020-07-16] MEDS ORDERED: WARFARIN SOD 5 MG TAB PO SCH (16:30)
[2020-07-16] MEDS: SILDENAFIL CITRATE 20 MG TAB PO SCH (17:35)
[2020-07-16] MEDS: PANTOPRAZOLE SOD 40 MG TABEC PO SCH (17:35)
[2020-07-16 17:57] LABS: INR 3.16; PROTHROMBIN TIME 33.9 seconds (11.9-14.5)
[2020-07-16 18:22] LABS: FERRITIN 73.24 ng/mL (4.63-204.00)
[2020-07-16] MEDS: BUDESONIDE/FORMOTEROL 160/4.5MCG INHALER INH SCH (19:25)
[2020-07-16] MEDS: ALBUTEROL/IPRATROPIUM 3 ML NEB NEB SCH (19:25)
[2020-07-16 20:00] VITALS: BP 126/78
[2020-07-16 20:05] VITALS: BP 145/92
[2020-07-16] MEDS: ACETAMINOPHEN/CODEINE 300MG - 30MG TAB PO PRN (20:34)
[2020-07-16] MEDS ORDERED: SIMVASTATIN 20 MG TAB PO SCH (21:00)
[2020-07-17 07:03] LABS: BASOPHILS % 0.2 % (0.0-1.0); EOSINOPHILS # (AUTO) 0.1 (0.0-0.4); EOSINOPHILS % 1.6 % (0.0-6.0); HEMATOCRIT 33.8 % (34.2-44.1); HEMOGLOBIN 10.4 g/dL (12.0-16.0); LYMPHOCYTES # (AUTO) 1.3 (1.0-3.2); LYMPHOCYTES % 23.8 % (18.0-39.1); MEAN CORPUSCULAR HEMOGLOBIN 28.4 pg (28-32); MEAN CORPUSCULAR HGB CONC 30.8 g/dL (31-35); MEAN CORPUSCULAR VOLUME 92.3 fL (81-99); MONOCYTES # (AUTO) 0.6 (0.2-0.8); MONOCYTES % 9.9 % (4.4-11.3); NEUTROPHILS # (AUTO) 3.6 (2.1-6.9); PLATELET COUNT 193 x10e3/uL (140-360); RED BLOOD COUNT 3.66 x10e6/uL (3.6-5.1); RED CELL DISTRIBUTION WIDTH 17.9 % (11.7-14.4)
[2020-07-17 07:07] LABS: ALANINE AMINOTRANSFERASE 10 IU/L (0-55); ALBUMIN 2.8 g/dL (3.5-5.0); ALBUMIN/GLOBULIN RATIO 1.2 (0.8-2.0); ALKALINE PHOSPHATASE 104 IU/L (40-150); BLOOD UREA NITROGEN 10 mg/dL (7-26); BUN/CREATININE RATIO 15 (6-25); CALCIUM 8.2 mg/dL (8.4-10.2); CARBON DIOXIDE 24 mmol/L (22-29); CHLORIDE 109 mmol/L (98-107); CREATININE, SERUM 0.68 mg/dL (0.57-1.11); EST GLOMERULAR FILTRATION RATE > 60 ML/MIN (60-); GLUCOSE 82 mg/dL (74-118); SODIUM 141 mmol/L (136-145)
[2020-07-17] MEDS: ALBUTEROL/IPRATROPIUM 3 ML NEB NEB SCH ×3 (07:10→15:00)
[2020-07-17] MEDS: BUDESONIDE/FORMOTEROL 160/4.5MCG INHALER INH SCH (07:25)
[2020-07-17 08:18] VITALS: BP 145/92
[2020-07-17] MEDS: PANTOPRAZOLE SOD 40 MG TABEC PO SCH ×2 (08:52→16:30)
[2020-07-17] MEDS ORDERED: VERAPAMIL HCL 120 MG TABSR PO SCH ×2 (09:00)
[2020-07-17] MEDS ORDERED: POTASSIUM CHLORIDE 10MEQ EA PO SCH (09:15)
[2020-07-17] MEDS ORDERED: FUROSEMIDE 20 MG TAB PO SCH (09:15)
[2020-07-17 09:34] VITALS: BP 121/84
[2020-07-17] MEDS: SILDENAFIL CITRATE 20 MG TAB PO SCH ×2 (09:49→17:00)
[2020-07-17] MEDS: ACETAMINOPHEN/CODEINE 300MG - 30MG TAB PO PRN (09:54)
[2020-07-17] MEDS ORDERED: IRON SUCROSE 100 MG in SODIUM CHLORIDE 0.9% 100 ML 100 ML IV SCH (10:00)
[2020-07-17 12:28] VITALS: BP 102/58
[2020-07-17] MEDS ORDERED: WARFARIN SOD 5 MG TAB PO SCH (17:00)
[2020-07-19] MEDS ORDERED: WARFARIN SOD 5 MG TAB PO SCH (17:00)
== END 2020-07-17 17:09 | disposition home or self-care (01) ==
LOC: ER 10:40 → ERHOLD 10:46 → MED/SURG 15:17
PROVIDERS: ADMIT Family Medicine; ATTEND Family Medicine
DX: M80.08XA Age-related osteoporosis with current pathological fracture, vertebra(e), initial encounter for fracture (principal); M41.9 Scoliosis, unspecified; I48.0 Paroxysmal atrial fibrillation; Z79.01 Long term (current) use of anticoagulants; I10 Essential (primary) hypertension; I27.20 Pulmonary hypertension, unspecified; J84.10 Pulmonary fibrosis, unspecified; J44.9 Chronic obstructive pulmonary disease, unspecified; I25.10 Atherosclerotic heart disease of native coronary artery without angina pectoris
CPT/HCPCS: 36415 ×2; 71045; 72072; 72110; 80053; 82306; 82728; 83540; 84466; 85025; 85610; 94640 ×3; 94664 ×2; 97116; 97161; 99284; G0378 ×2; J1756; S0164 ×2; U0002

== ENCOUNTER 2020-10-21 09:22 | Emergency (ER) | payer MEDICARE ==
[~2020-10-21] VITALS: Ht 157.5 cm; Wt 55.8 kg
[2020-10-21] MEDS ORDERED: TETANUS/DIPHTHERIA TOX ADULT 0.5 ML SYR IM ONE (09:45)
[2020-10-21 10:11] LABS: BASOPHILS % 0.2 % (0.0-1.0); EOSINOPHILS # (AUTO) 0.2 (0.0-0.4); EOSINOPHILS % 2.1 % (0.0-6.0); HEMATOCRIT 37.9 % (34.2-44.1); HEMOGLOBIN 12.2 g/dL (12.0-16.0); LYMPHOCYTES # (AUTO) 1.5 (1.0-3.2); LYMPHOCYTES % 17.1 % (18.0-39.1); MEAN CORPUSCULAR HEMOGLOBIN 29.8 pg (28-32); MEAN CORPUSCULAR HGB CONC 32.2 g/dL (31-35); MEAN CORPUSCULAR VOLUME 92.7 fL (81-99); MONOCYTES # (AUTO) 0.6 (0.2-0.8); MONOCYTES % 6.6 % (4.4-11.3); NEUTROPHILS # (AUTO) 6.4 (2.1-6.9); NEUTROPHILS % 73.4 % (38.7-80.0); PLATELET COUNT 93 x10e3/uL (140-360); RED BLOOD COUNT 4.09 x10e6/uL (3.6-5.1); RED CELL DISTRIBUTION WIDTH 14.8 % (11.7-14.4)
[2020-10-21 10:19] LABS: ANION GAP 11.3 mmol/L (8-16); BLOOD UREA NITROGEN 19 mg/dL (7-26); BUN/CREATININE RATIO 29 (6-25); CALCIUM 8.2 mg/dL (8.4-10.2); CARBON DIOXIDE 25 mmol/L (22-29); CHLORIDE 107 mmol/L (98-107); CREATININE, SERUM 0.66 mg/dL (0.57-1.11); EST GLOMERULAR FILTRATION RATE > 60 ML/MIN (60-); GLUCOSE 80 mg/dL (74-118); POTASSIUM 4.3 mmol/L (3.5-5.1); SODIUM 139 mmol/L (136-145)
[2020-10-21 10:44] LABS: INR 2.78; PROTHROMBIN TIME 31.7 seconds (11.9-14.5)
[2020-10-21] MEDS ORDERED: ACETAMINOPHEN/CODEINE 300MG - 30MG TAB PO ONE (12:00)
== END 2020-10-21 12:24 | disposition home or self-care (01) ==
LOC: ER 09:44
DX: S82.002A Unspecified fracture of left patella, initial encounter for closed fracture (principal); S22.000A Wedge compression fracture of unspecified thoracic vertebra, initial encounter for closed fracture; S51.811A Laceration without foreign body of right forearm, initial encounter; S00.83XA Contusion of other part of head, initial encounter; W01.0XXA Fall on same level from slipping, tripping and stumbling without subsequent striking against object, initial encounter; Y93.01 Activity, walking, marching and hiking; Y92.008 Other place in unspecified non-institutional (private) residence as the place of occurrence of the external cause; I10 Essential (primary) hypertension; J44.9 Chronic obstructive pulmonary disease, unspecified; I48.91 Unspecified atrial fibrillation; I25.10 Atherosclerotic heart disease of native coronary artery without angina pectoris; K21.9 Gastro-esophageal reflux disease without esophagitis
CPT/HCPCS: 36415; 70450; 71250; 72125; 72170; 80048; 85025; 85610; 85730; 90471; 90714; 99284

== ENCOUNTER 2021-02-15 16:16 | Inpatient (IN) | payer MEDICARE, OTHER ==
[~2021-02-15] VITALS: Ht 157.5 cm; Wt 47.2 kg
[2021-02-15] MEDS ORDERED: CEFEPIME HCL 1 GM VIAL IV SCH (16:45)
[2021-02-15 17:20] LABS: BASOPHILS % 0.5 % (0.0-1.0); EOSINOPHILS # (AUTO) 0.2 (0.0-0.4); EOSINOPHILS % 2.5 % (0.0-6.0); HEMATOCRIT 37.9 % (34.2-44.1); HEMOGLOBIN 11.8 g/dL (12.0-16.0); LYMPHOCYTES # (AUTO) 1.3 (1.0-3.2); LYMPHOCYTES % 20.9 % (18.0-39.1); MEAN CORPUSCULAR HEMOGLOBIN 29.9 pg (28-32); MEAN CORPUSCULAR HGB CONC 31.1 g/dL (31-35); MEAN CORPUSCULAR VOLUME 96.2 fL (81-99); MONOCYTES # (AUTO) 0.5 (0.2-0.8); MONOCYTES % 8.9 % (4.4-11.3); PLATELET COUNT 168 x10e3/uL (140-360); RED BLOOD COUNT 3.94 x10e6/uL (3.6-5.1); RED CELL DISTRIBUTION WIDTH 13.8 % (11.7-14.4)
[2021-02-15] MEDS: CEFEPIME HCL 1GM 1 GM in SODIUM CHLORIDE 0.9% 50ML 50 ML IV SCH (17:50)
[2021-02-15 17:56] LABS: ALANINE AMINOTRANSFERASE 17 IU/L (0-55); ALBUMIN 3.6 g/dL (3.5-5.0); ALKALINE PHOSPHATASE 121 IU/L (40-150); ANION GAP 14.1 mmol/L (8-16); BLOOD UREA NITROGEN 14 mg/dL (7-26); BUN/CREATININE RATIO 20 (6-25); CARBON DIOXIDE 25 mmol/L (22-29); CHLORIDE 105 mmol/L (98-107); EST GLOMERULAR FILTRATION RATE > 60 ML/MIN (60-); GLUCOSE 79 mg/dL (74-118); POTASSIUM 4.1 mmol/L (3.5-5.1); SODIUM 140 mmol/L (136-145)
[2021-02-15 18:02] LABS: CALCIUM 9.5 mg/dL (8.4-10.2)
[2021-02-15] MEDS: VANCOMYCIN 1GM/NS 250 ML 250 ML IV SCH (20:00)
[2021-02-15 22:00] VITALS: BP 146/78
[2021-02-15] MEDS ORDERED: SYMBICORT 16010.2 GM INH (22:54)
[2021-02-15 22:59] VITALS: BP 146/78
[2021-02-15 23:00] VITALS: BP 146/78
[2021-02-16] VITALS (7 sets, daily range): BP systolic 125–144; BP diastolic 59–92
[2021-02-16] MEDS ORDERED: SODIUM CHLORIDE 0.9% 250ML 250 ML ONE (04:28)
[2021-02-16] MEDS: CEFEPIME HCL 1GM 1 GM in SODIUM CHLORIDE 0.9% 50ML 50 ML IV SCH ×2 (05:00→17:00)
[2021-02-16] MEDS: BUDESONIDE/FORMOTEROL 160/4.5MCG INHALER INH SCH ×2 (07:00→17:00)
[2021-02-16] MEDS: ALBUTEROL/IPRATROPIUM 3 ML NEB NEB SCH ×2 (07:00→19:45)
[2021-02-16] MEDS: PANTOPRAZOLE SOD 40 MG TABEC PO SCH ×2 (07:30→16:30)
[2021-02-16 08:32] LABS: INR 1.63
[2021-02-16] MEDS: VERAPAMIL HCL 120 MG TABSR PO SCH (09:00)
[2021-02-16] MEDS ORDERED: BUDESONIDE/FORMOTEROL 160/4.5MCG INHALER INH SCH (09:00)
[2021-02-16] MEDS ORDERED: VERAPAMIL HCL 120 MG TABSR PO SCH (09:00)
[2021-02-16] MEDS: SILDENAFIL CITRATE 20 MG TAB PO SCH ×2 (09:00→17:00)
[2021-02-16] MEDS: ACETAMINOPHEN/CODEINE 300MG - 30MG TAB PO PRN ×2 (11:40→21:10)
[2021-02-16] MEDS: FUROSEMIDE 40 MG TAB PO SCH (12:30)
[2021-02-16] MEDS ORDERED: NEOMYCIN/POLYMYXIN/BACITRACIN 15 GM TUBE TOP PRN (12:30)
[2021-02-16] MEDS: WARFARIN SOD 5 MG TAB PO SCH (17:00)
[2021-02-16] MEDS: VANCOMYCIN 1GM/NS 250 ML 250 ML IV SCH (17:04)
[2021-02-16] MEDS: SIMVASTATIN 20 MG TAB PO SCH (20:09)
[2021-02-17] VITALS (8 sets, daily range): BP systolic 95–121; BP diastolic 51–93
[2021-02-17] MEDS: CEFEPIME HCL 1GM 1 GM in SODIUM CHLORIDE 0.9% 50ML 50 ML IV SCH ×2 (04:40→17:00)
[2021-02-17 06:38] LABS: BASOPHILS % 0.5 % (0.0-1.0); EOSINOPHILS # (AUTO) 0.2 (0.0-0.4); EOSINOPHILS % 3.1 % (0.0-6.0); HEMATOCRIT 34.5 % (34.2-44.1); HEMOGLOBIN 10.7 g/dL (12.0-16.0); LYMPHOCYTES # (AUTO) 1.6 (1.0-3.2); LYMPHOCYTES % 26.3 % (18.0-39.1); MEAN CORPUSCULAR HEMOGLOBIN 29.4 pg (28-32); MEAN CORPUSCULAR VOLUME 94.8 fL (81-99); MONOCYTES # (AUTO) 0.7 (0.2-0.8); NEUTROPHILS # (AUTO) 3.5 (2.1-6.9); NEUTROPHILS % 58.8 % (38.7-80.0); PLATELET COUNT 150 x10e3/uL (140-360); RED BLOOD COUNT 3.64 x10e6/uL (3.6-5.1); RED CELL DISTRIBUTION WIDTH 13.5 % (11.7-14.4)
[2021-02-17 06:58] LABS: INR 1.91; PROTHROMBIN TIME 22.6 seconds (11.9-14.5)
[2021-02-17] MEDS: ALBUTEROL/IPRATROPIUM 3 ML NEB NEB SCH ×2 (07:00→19:05)
[2021-02-17] MEDS: BUDESONIDE/FORMOTEROL 160/4.5MCG INHALER INH SCH ×2 (07:00→17:00)
[2021-02-17 07:25] LABS: ALANINE AMINOTRANSFERASE 11 IU/L (0-55); ALBUMIN 2.8 g/dL (3.5-5.0); ALKALINE PHOSPHATASE 105 IU/L (40-150); ANION GAP 15.1 mmol/L (8-16); BLOOD UREA NITROGEN 14 mg/dL (7-26); BUN/CREATININE RATIO 18 (6-25); CALCIUM 8.6 mg/dL (8.4-10.2); CARBON DIOXIDE 25 mmol/L (22-29); CHLORIDE 106 mmol/L (98-107); CREATININE, SERUM 0.76 mg/dL (0.57-1.11); EST GLOMERULAR FILTRATION RATE > 60 ML/MIN (60-); GLUCOSE 80 mg/dL (74-118); POTASSIUM 4.1 mmol/L (3.5-5.1); SODIUM 142 mmol/L (136-145)
[2021-02-17] MEDS: PANTOPRAZOLE SOD 40 MG TABEC PO SCH ×2 (07:30→16:30)
[2021-02-17] MEDS ORDERED: FUROSEMIDE 40 MG TAB PO SCH (09:00)
[2021-02-17] MEDS: FUROSEMIDE 40 MG TAB PO SCH (09:00)
[2021-02-17] MEDS: SILDENAFIL CITRATE 20 MG TAB PO SCH ×2 (09:00→17:00)
[2021-02-17] MEDS: VERAPAMIL HCL 120 MG TABSR PO SCH (09:00)
[2021-02-17] MEDS: NEOMYCIN/POLYMYXIN/BACITRACIN 15 GM TUBE TOP SCH (10:00)
[2021-02-17] MEDS: ACETAMINOPHEN/CODEINE 300MG - 30MG TAB PO PRN (13:03)
[2021-02-17] MEDS: WARFARIN SOD 5 MG TAB PO SCH (17:00)
[2021-02-17] MEDS: VANCOMYCIN 1GM/NS 250 ML 250 ML IV SCH (18:00)
[2021-02-17] MEDS: SIMVASTATIN 20 MG TAB PO SCH ×2 (20:22→20:33)
[2021-02-18] VITALS (9 sets, daily range): BP systolic 102–133; BP diastolic 65–89
[2021-02-18] MEDS: ACETAMINOPHEN/CODEINE 300MG - 30MG TAB PO PRN ×2 (02:37→17:00)
[2021-02-18] MEDS: CEFEPIME HCL 1GM 1 GM in SODIUM CHLORIDE 0.9% 50ML 50 ML IV SCH ×2 (04:57→17:06)
[2021-02-18 06:08] LABS: INR 2.22; PROTHROMBIN TIME 25.4 seconds (11.9-14.5)
[2021-02-18] MEDS: BUDESONIDE/FORMOTEROL 160/4.5MCG INHALER INH SCH ×2 (08:25→19:00)
[2021-02-18] MEDS: ALBUTEROL/IPRATROPIUM 3 ML NEB NEB SCH ×2 (08:45→19:00)
[2021-02-18] MEDS: SILDENAFIL CITRATE 20 MG TAB PO SCH ×2 (08:52→17:01)
[2021-02-18] MEDS: FUROSEMIDE 40 MG TAB PO SCH (08:52)
[2021-02-18] MEDS: PANTOPRAZOLE SOD 40 MG TABEC PO SCH ×2 (08:52→17:01)
[2021-02-18] MEDS: NEOMYCIN/POLYMYXIN/BACITRACIN 15 GM TUBE TOP SCH (10:00)
[2021-02-18] MEDS: VANCOMYCIN 1GM/NS 250 ML 250 ML IV SCH ×2 (12:22→23:38)
[2021-02-18] MEDS: WARFARIN SOD 5 MG TAB PO SCH (17:05)
[2021-02-18] MEDS: SIMVASTATIN 20 MG TAB PO SCH (20:08)
[2021-02-19] VITALS (7 sets, daily range): BP systolic 104–142; BP diastolic 44–90
[2021-02-19] MEDS: CEFEPIME HCL 1GM 1 GM in SODIUM CHLORIDE 0.9% 50ML 50 ML IV SCH ×2 (05:09→17:20)
[2021-02-19] MEDS: BUDESONIDE/FORMOTEROL 160/4.5MCG INHALER INH SCH ×2 (06:48→17:00)
[2021-02-19] MEDS: ALBUTEROL/IPRATROPIUM 3 ML NEB NEB SCH ×2 (06:48→19:15)
[2021-02-19] MEDS: SILDENAFIL CITRATE 20 MG TAB PO SCH ×2 (09:07→17:19)
[2021-02-19] MEDS: FUROSEMIDE 40 MG TAB PO SCH (09:07)
[2021-02-19] MEDS: PANTOPRAZOLE SOD 40 MG TABEC PO SCH ×2 (09:07→17:19)
[2021-02-19 12:36] LABS: INR 2.51; PROTHROMBIN TIME 27.9 seconds (11.9-14.5)
[2021-02-19] MEDS: VERAPAMIL HCL 120 MG TABSR PO SCH (13:04)
[2021-02-19] MEDS: VANCOMYCIN 1GM/NS 250 ML 250 ML IV SCH (13:04)
[2021-02-19] MEDS: NEOMYCIN/POLYMYXIN/BACITRACIN 15 GM TUBE TOP SCH (15:54)
[2021-02-19] MEDS: ACETAMINOPHEN/CODEINE 300MG - 30MG TAB PO PRN (17:37)
[2021-02-19] MEDS: SIMVASTATIN 20 MG TAB PO SCH (20:38)
[2021-02-20] VITALS (8 sets, daily range): BP systolic 92–119; BP diastolic 50–74
[2021-02-20] MEDS: CEFEPIME HCL 1GM 1 GM in SODIUM CHLORIDE 0.9% 50ML 50 ML IV SCH ×2 (05:37→17:26)
[2021-02-20] MEDS: ALBUTEROL/IPRATROPIUM 3 ML NEB NEB SCH ×2 (06:40→19:40)
[2021-02-20] MEDS: BUDESONIDE/FORMOTEROL 160/4.5MCG INHALER INH SCH ×2 (06:50→17:00)
[2021-02-20] MEDS: PANTOPRAZOLE SOD 40 MG TABEC PO SCH ×2 (09:58→17:26)
[2021-02-20] MEDS: NEOMYCIN/POLYMYXIN/BACITRACIN 15 GM TUBE TOP SCH (09:59)
[2021-02-20] MEDS: FUROSEMIDE 40 MG TAB PO SCH (09:59)
[2021-02-20] MEDS: VERAPAMIL HCL 120 MG TABSR PO SCH (09:59)
[2021-02-20] MEDS: SILDENAFIL CITRATE 20 MG TAB PO SCH ×2 (09:59→17:28)
[2021-02-20] MEDS ORDERED: VANCOMYCIN 1GM/NS 250 ML 250 ML IV SCH (12:00)
[2021-02-20] MEDS: WARFARIN SOD 5 MG TAB PO SCH (17:28)
[2021-02-20] MEDS: SIMVASTATIN 20 MG TAB PO SCH (21:00)
[2021-02-20] MEDS: ACETAMINOPHEN/CODEINE 300MG - 30MG TAB PO PRN (22:00)
[2021-02-21 00:02] VITALS: BP 108/58
[2021-02-21 04:00] VITALS: BP 137/82
[2021-02-21] MEDS ORDERED: SODIUM CHLORIDE 0.9% 250ML 250 ML ONE (05:10)
[2021-02-21] MEDS: CEFEPIME HCL 1GM 1 GM in SODIUM CHLORIDE 0.9% 50ML 50 ML IV SCH (05:14)
[2021-02-21 08:28] VITALS: BP 137/94
[2021-02-21] MEDS: BUDESONIDE/FORMOTEROL 160/4.5MCG INHALER INH SCH (08:35)
[2021-02-21] MEDS: ALBUTEROL/IPRATROPIUM 3 ML NEB NEB SCH (08:35)
[2021-02-21 08:51] VITALS: BP 137/94
[2021-02-21] MEDS: FUROSEMIDE 40 MG TAB PO SCH (09:07)
[2021-02-21] MEDS: SILDENAFIL CITRATE 20 MG TAB PO SCH (09:07)
[2021-02-21] MEDS: PANTOPRAZOLE SOD 40 MG TABEC PO SCH (09:08)
[2021-02-21] MEDS: VERAPAMIL HCL 120 MG TABSR PO SCH (09:08)
[2021-02-21] MEDS: NEOMYCIN/POLYMYXIN/BACITRACIN 15 GM TUBE TOP SCH (09:09)
[2021-02-21 12:06] VITALS: BP 108/72
[2021-02-21 16:17] VITALS: BP 103/68
== END 2021-02-21 16:25 | disposition home health service (06) | DRG 603 ==
LOC: ER 16:29 → ERHOLD 17:31 → MED/SURG2 21:46
PROVIDERS: ADMIT Family Medicine; ATTEND Family Medicine
DX: L03.116 Cellulitis of left lower limb (principal); J84.9 Interstitial pulmonary disease, unspecified; I48.20 Chronic atrial fibrillation, unspecified; I27.20 Pulmonary hypertension, unspecified; J84.10 Pulmonary fibrosis, unspecified; I25.10 Atherosclerotic heart disease of native coronary artery without angina pectoris; Z95.1 Presence of aortocoronary bypass graft; Z79.01 Long term (current) use of anticoagulants; J44.9 Chronic obstructive pulmonary disease, unspecified; M54.5 Low back pain; G89.29 Other chronic pain; I89.0 Lymphedema, not elsewhere classified; Z20.822 Contact with and (suspected) exposure to COVID-19; I25.2 Old myocardial infarction; L03.115 Cellulitis of right lower limb
CPT/HCPCS: 36415; 80053; 80202; 83605; 85025; 85610; 87040; 93005; 93306; 94640; 94664; 97139; 99251; 99284; J0692; J3370; J7050; U0002

== ENCOUNTER 2021-04-01 15:25 | Inpatient (IN) | payer MEDICARE ==
[~2021-04-01] VITALS: Ht 157.5 cm; Wt 47.2 kg
[~2021-04-01 15:25] MED LIST changes: +SYMBICORT 16010.2 GM INH
[2021-04-01] MEDS ORDERED: ASPIRIN 81 MG CHEW TAB PO ONE (15:30)
[2021-04-01] MEDS ORDERED: DILTIAZEM HCL 5 MG/ML 5 ML VIAL IV STA (16:42)
[2021-04-01] MEDS ORDERED: DIGOXIN INJ 0.25 MG/ML 2 ML AMP IV ONE (16:45)
[2021-04-01 16:47] LABS: BASOPHILS % 0.1 % (0.0-1.0); HEMATOCRIT 36.8 % (34.2-44.1); HEMOGLOBIN 11.4 g/dL (12.0-16.0); LYMPHOCYTES # (AUTO) 0.5 (1.0-3.2); LYMPHOCYTES % 3.9 % (18.0-39.1); MEAN CORPUSCULAR HEMOGLOBIN 29.4 pg (28-32); MEAN CORPUSCULAR VOLUME 94.8 fL (81-99); MONOCYTES # (AUTO) 1.1 (0.2-0.8); MONOCYTES % 8.1 % (4.4-11.3); NEUTROPHILS # (AUTO) 12.1 (2.1-6.9); NEUTROPHILS % 87.4 % (38.7-80.0); PLATELET COUNT 198 x10e3/uL (140-360); RED BLOOD COUNT 3.88 x10e6/uL (3.6-5.1); RED CELL DISTRIBUTION WIDTH 14.5 % (11.7-14.4)
[2021-04-01 17:04] LABS: ALANINE AMINOTRANSFERASE 17 IU/L (0-55); ALBUMIN 3.4 g/dL (3.5-5.0); ALBUMIN/GLOBULIN RATIO 1.1 (0.8-2.0); ALKALINE PHOSPHATASE 118 IU/L (40-150); BLOOD UREA NITROGEN 18 mg/dL (7-26); BUN/CREATININE RATIO 23 (6-25); CALCIUM 8.6 mg/dL (8.4-10.2); CARBON DIOXIDE 26 mmol/L (22-29); CHLORIDE 106 mmol/L (98-107); CREATINE KINASE 67 IU/L (29-168); CREATININE, SERUM 0.79 mg/dL (0.57-1.11); EST GLOMERULAR FILTRATION RATE 71 ML/MIN (60-); GLUCOSE 173 mg/dL (74-118); SODIUM 140 mmol/L (136-145)
[2021-04-01] MEDS ORDERED: WARFARIN SOD 5 MG TAB PO SCH (18:15)
[2021-04-01 18:27] LABS: INR 4.68
[2021-04-01 18:35] LABS: PROTHROMBIN TIME 46.1 seconds (11.9-14.5)
[2021-04-01 21:23] VITALS: BP 156/107
[2021-04-01] MEDS: VERAPAMIL HCL 120 MG TABSR PO SCH (21:54)
[2021-04-01] MEDS: SIMVASTATIN 20 MG TAB PO SCH (21:54)
[2021-04-01] MEDS: SILDENAFIL CITRATE 20 MG TAB PO SCH (21:55)
[2021-04-01] MEDS: ACETAMINOPHEN/CODEINE 300MG - 30MG TAB PO PRN (21:55)
[2021-04-01 21:56] VITALS: BP 156/107
[2021-04-01] MEDS: ALBUTEROL/IPRATROPIUM 3 ML NEB NEB SCH (22:00)
[2021-04-01 22:08] VITALS: BP 156/107
[2021-04-02] VITALS (8 sets, daily range): BP systolic 96–116; BP diastolic 58–77
[2021-04-02 06:29] LABS: BASOPHILS % 0.2 % (0.0-1.0); EOSINOPHILS % 0.2 % (0.0-6.0); HEMATOCRIT 37.9 % (34.2-44.1); HEMOGLOBIN 11.8 g/dL (12.0-16.0); LYMPHOCYTES # (AUTO) 1.7 (1.0-3.2); LYMPHOCYTES % 14.5 % (18.0-39.1); MEAN CORPUSCULAR HEMOGLOBIN 29.7 pg (28-32); MEAN CORPUSCULAR HGB CONC 31.1 g/dL (31-35); MEAN CORPUSCULAR VOLUME 95.5 fL (81-99); MONOCYTES # (AUTO) 0.7 (0.2-0.8); MONOCYTES % 5.8 % (4.4-11.3); NEUTROPHILS # (AUTO) 9.4 (2.1-6.9); NEUTROPHILS % 78.9 % (38.7-80.0); PLATELET COUNT 194 x10e3/uL (140-360); RED BLOOD COUNT 3.97 x10e6/uL (3.6-5.1); RED CELL DISTRIBUTION WIDTH 14.4 % (11.7-14.4)
[2021-04-02 06:50] LABS: ANION GAP 15.4 mmol/L (8-16); CALCIUM 8.4 mg/dL (8.4-10.2); POTASSIUM 4.4 mmol/L (3.5-5.1)
[2021-04-02 06:54] LABS: INR 5.28; PROTHROMBIN TIME 50.6 seconds (11.9-14.5)
[2021-04-02 07:05] LABS: CREATININE, SERUM 0.73 mg/dL (0.57-1.11)
[2021-04-02] MEDS: ALBUTEROL/IPRATROPIUM 3 ML NEB NEB SCH ×2 (07:13→19:45)
[2021-04-02] MEDS ORDERED: FUROSEMIDE 20 MG TAB PO ONE (07:30)
[2021-04-02] MEDS ORDERED: PHYTONADIONE 10 MG/ML AMP SQ ONE ×2 (07:30→08:30)
[2021-04-02] MEDS: PIPERACILLIN/TAZOBACTAM 3.375 GM in SODIUM CHLORIDE 0.9% 50ML 50 ML IV SCH ×3 (09:00→20:56)
[2021-04-02] MEDS ORDERED: ALBUTEROL/IPRATROPIUM 3 ML NEB NEB SCH (09:00)
[2021-04-02] MEDS: VERAPAMIL HCL 120 MG TABSR PO SCH (09:16)
[2021-04-02] MEDS: SILDENAFIL CITRATE 20 MG TAB PO SCH ×2 (09:16→16:54)
[2021-04-02] MEDS: PANTOPRAZOLE SOD 40 MG TABEC PO SCH ×2 (09:16→16:54)
[2021-04-02] MEDS: METHYLPREDNISOLONE SOD SUCC 40 MG/ML VIAL 1ML IV SCH ×2 (09:16→20:56)
[2021-04-02] MEDS ORDERED: SODIUM CHLORIDE 0.9% 250ML 250 ML ONE (09:42)
[2021-04-02] MEDS: BUDESONIDE/FORMOTEROL 160/4.5MCG INHALER INH SCH ×2 (10:30→19:45)
[2021-04-02] MEDS: ACETAMINOPHEN/CODEINE 300MG - 30MG TAB PO PRN ×2 (12:51→21:13)
[2021-04-02] MEDS: SIMVASTATIN 20 MG TAB PO SCH (20:56)
[2021-04-03] VITALS (8 sets, daily range): BP systolic 123–148; BP diastolic 67–92
[2021-04-03] MEDS: PIPERACILLIN/TAZOBACTAM 3.375 GM in SODIUM CHLORIDE 0.9% 50ML 50 ML IV SCH ×4 (01:25→20:00)
[2021-04-03 05:18] LABS: INR 6.87; PROTHROMBIN TIME 62.2 seconds (11.9-14.5)
[2021-04-03] MEDS ORDERED: PREDNISONE 10 MG TAB PO ONE ×3 (05:30→17:30)
[2021-04-03] MEDS ORDERED: PHYTONADIONE 10 MG/ML AMP SQ ONE (06:00)
[2021-04-03] MEDS: BUDESONIDE/FORMOTEROL 160/4.5MCG INHALER INH SCH ×2 (08:35→19:15)
[2021-04-03] MEDS: ALBUTEROL/IPRATROPIUM 3 ML NEB NEB SCH ×2 (08:35→19:15)
[2021-04-03] MEDS: PANTOPRAZOLE SOD 40 MG TABEC PO SCH ×2 (09:00→18:56)
[2021-04-03] MEDS: VERAPAMIL HCL 120 MG TABSR PO SCH (09:00)
[2021-04-03] MEDS: SILDENAFIL CITRATE 20 MG TAB PO SCH ×2 (10:26→18:56)
[2021-04-03] MEDS: PREDNISONE 10 MG TAB PO ONE ×2 (14:56→15:09)
[2021-04-03] MEDS: ACETAMINOPHEN/CODEINE 300MG - 30MG TAB PO PRN (15:19)
[2021-04-03] MEDS ORDERED: DIPHENHYDRAMINE HCL 25 MG CAP PO ONE (17:30)
[2021-04-03] MEDS: METHYLPREDNISOLONE SOD SUCC 40 MG/ML VIAL 1ML IV SCH (20:02)
[2021-04-03] MEDS: SIMVASTATIN 20 MG TAB PO SCH (20:02)
[2021-04-04] VITALS: BP 123/67
[2021-04-04] MEDS: PIPERACILLIN/TAZOBACTAM 3.375 GM in SODIUM CHLORIDE 0.9% 50ML 50 ML IV SCH ×4 (02:00→20:00)
[2021-04-04 04:00] VITALS: BP 133/83
[2021-04-04] MEDS: ACETAMINOPHEN/CODEINE 300MG - 30MG TAB PO PRN ×2 (05:15→20:29)
[2021-04-04 06:31] LABS: INR 1.5; PROTHROMBIN TIME 18.9 seconds (11.9-14.5)
[2021-04-04] MEDS: ALBUTEROL/IPRATROPIUM 3 ML NEB NEB SCH ×2 (07:30→19:55)
[2021-04-04] MEDS: BUDESONIDE/FORMOTEROL 160/4.5MCG INHALER INH SCH ×2 (07:30→19:55)
[2021-04-04 08:11] VITALS: BP 144/88
[2021-04-04] MEDS: METHYLPREDNISOLONE SOD SUCC 40 MG/ML VIAL 1ML IV SCH (08:48)
[2021-04-04] MEDS: PANTOPRAZOLE SOD 40 MG TABEC PO SCH ×2 (08:50→16:03)
[2021-04-04] MEDS: VERAPAMIL HCL 120 MG TABSR PO SCH (08:51)
[2021-04-04] MEDS: SILDENAFIL CITRATE 20 MG TAB PO SCH ×2 (08:51→16:03)
[2021-04-04 08:58] VITALS: BP 144/88
[2021-04-04] MEDS ORDERED: FUROSEMIDE INJ 10 MG/ML 2 ML VIAL IV ONE (10:45)
[2021-04-04 11:34] VITALS: BP 138/87
[2021-04-04 20:00] VITALS: BP 134/97
[2021-04-04] MEDS: FAMOTIDINE 20 MG TAB PO SCH (20:07)
[2021-04-04] MEDS: SIMVASTATIN 20 MG TAB PO SCH (20:07)
[2021-04-05] VITALS (8 sets, daily range): BP systolic 125–149; BP diastolic 67–103
[2021-04-05] MEDS: PIPERACILLIN/TAZOBACTAM 3.375 GM in SODIUM CHLORIDE 0.9% 50ML 50 ML IV SCH ×4 (01:06→20:17)
[2021-04-05 05:03] LABS: BASOPHILS % 0.1 % (0.0-1.0); HEMOGLOBIN 12.3 g/dL (12.0-16.0); LYMPHOCYTES # (AUTO) 0.6 (1.0-3.2); LYMPHOCYTES % 5.1 % (18.0-39.1); MEAN CORPUSCULAR HEMOGLOBIN 29.6 pg (28-32); MEAN CORPUSCULAR HGB CONC 30.8 g/dL (31-35); MEAN CORPUSCULAR VOLUME 96.4 fL (81-99); MONOCYTES # (AUTO) 0.5 (0.2-0.8); MONOCYTES % 4.1 % (4.4-11.3); NEUTROPHILS % 90.2 % (38.7-80.0); PLATELET COUNT 147 x10e3/uL (140-360); RED BLOOD COUNT 4.15 x10e6/uL (3.6-5.1); RED CELL DISTRIBUTION WIDTH 14.3 % (11.7-14.4)
[2021-04-05 05:30] LABS: ANION GAP 16.8 mmol/L (8-16); CALCIUM 8.7 mg/dL (8.4-10.2); CREATININE, SERUM 0.73 mg/dL (0.57-1.11); POTASSIUM 4.8 mmol/L (3.5-5.1)
[2021-04-05] MEDS: BUDESONIDE/FORMOTEROL 160/4.5MCG INHALER INH SCH ×2 (07:00→21:30)
[2021-04-05 07:22] LABS: LYMPHOCYTES % (MANUAL) 4 % (19-48); MONOCYTES % (MANUAL) 4 % (3.4-9.0); NEUTROPHILS % (MANUAL) 92 % (40-74); PLATELET ESTIMATE ADEQUATE; PLATELET MORPHOLOGY COMMENT NORMAL; RBC MORPHOLOGY COMMENT NORMAL
[2021-04-05] MEDS: ALBUTEROL/IPRATROPIUM 3 ML NEB NEB SCH ×2 (07:22→21:30)
[2021-04-05] MEDS: ACETAMINOPHEN/CODEINE 300MG - 30MG TAB PO PRN ×2 (08:32→20:17)
[2021-04-05] MEDS: METHYLPREDNISOLONE SOD SUCC 40 MG/ML VIAL 1ML IV SCH (08:33)
[2021-04-05] MEDS: PANTOPRAZOLE SOD 40 MG TABEC PO SCH ×2 (08:34→16:33)
[2021-04-05] MEDS: SILDENAFIL CITRATE 20 MG TAB PO SCH ×2 (08:34→16:33)
[2021-04-05] MEDS: VERAPAMIL HCL 120 MG TABSR PO SCH (08:35)
[2021-04-05] MEDS ORDERED: SODIUM CHLORIDE 0.9% 250ML 250 ML ONE (12:33)
[2021-04-05] MEDS: FLUTICASONE PROPIONATE NASAL SPRAY NS SCH (12:56)
[2021-04-05] MEDS ORDERED: WARFARIN SOD 5 MG TAB PO ONE (17:00)
[2021-04-05] MEDS: FAMOTIDINE 20 MG TAB PO SCH (20:17)
[2021-04-05] MEDS: SIMVASTATIN 20 MG TAB PO SCH (20:17)
[2021-04-06] VITALS (7 sets, daily range): BP systolic 113–156; BP diastolic 71–101
[2021-04-06] MEDS: PIPERACILLIN/TAZOBACTAM 3.375 GM in SODIUM CHLORIDE 0.9% 50ML 50 ML IV SCH ×4 (01:43→20:30)
[2021-04-06] MEDS: ALBUTEROL/IPRATROPIUM 3 ML NEB NEB SCH ×2 (06:42→19:30)
[2021-04-06] MEDS: BUDESONIDE/FORMOTEROL 160/4.5MCG INHALER INH SCH ×2 (06:51→19:30)
[2021-04-06] MEDS ORDERED: FUROSEMIDE INJ 10 MG/ML 2 ML VIAL IV ONE (07:00)
[2021-04-06] MEDS: PANTOPRAZOLE SOD 40 MG TABEC PO SCH ×2 (08:49→16:34)
[2021-04-06] MEDS: SILDENAFIL CITRATE 20 MG TAB PO SCH ×2 (08:49→16:34)
[2021-04-06] MEDS: FLUTICASONE PROPIONATE NASAL SPRAY NS SCH (08:49)
[2021-04-06] MEDS: VERAPAMIL HCL 120 MG TABSR PO SCH (08:49)
[2021-04-06] MEDS: METHYLPREDNISOLONE SOD SUCC 40 MG/ML VIAL 1ML IV SCH (08:49)
[2021-04-06 09:54] LABS: INR 1.27; PROTHROMBIN TIME 16.6 seconds (11.9-14.5)
[2021-04-06] MEDS: WARFARIN SOD 2.5 MG TAB PO SCH (16:34)
[2021-04-06] MEDS: ACETAMINOPHEN/CODEINE 300MG - 30MG TAB PO PRN (16:37)
[2021-04-06] MEDS: SIMVASTATIN 20 MG TAB PO SCH (20:30)
[2021-04-06] MEDS: FAMOTIDINE 20 MG TAB PO SCH (20:30)
[2021-04-07] VITALS (8 sets, daily range): BP systolic 109–151; BP diastolic 63–89
[2021-04-07] MEDS: PIPERACILLIN/TAZOBACTAM 3.375 GM in SODIUM CHLORIDE 0.9% 50ML 50 ML IV SCH ×4 (01:35→20:20)
[2021-04-07 05:37] LABS: INR 1.59; PROTHROMBIN TIME 19.8 seconds (11.9-14.5)
[2021-04-07 05:39] LABS: ANION GAP 10.8 mmol/L (8-16); CALCIUM 8.6 mg/dL (8.4-10.2); CREATININE, SERUM 0.67 mg/dL (0.57-1.11); POTASSIUM 4.8 mmol/L (3.5-5.1)
[2021-04-07] MEDS: BUDESONIDE/FORMOTEROL 160/4.5MCG INHALER INH SCH ×2 (07:00→19:27)
[2021-04-07] MEDS: ALBUTEROL/IPRATROPIUM 3 ML NEB NEB SCH ×2 (07:08→19:27)
[2021-04-07] MEDS ORDERED: FUROSEMIDE INJ 10 MG/ML 2 ML VIAL IV ONE ×2 (07:15→12:00)
[2021-04-07] MEDS: METHYLPREDNISOLONE SOD SUCC 40 MG/ML VIAL 1ML IV SCH (08:08)
[2021-04-07] MEDS: PANTOPRAZOLE SOD 40 MG TABEC PO SCH ×2 (08:08→17:09)
[2021-04-07] MEDS: FLUTICASONE PROPIONATE NASAL SPRAY NS SCH (08:08)
[2021-04-07] MEDS: SILDENAFIL CITRATE 20 MG TAB PO SCH ×2 (08:09→17:09)
[2021-04-07] MEDS: VERAPAMIL HCL 120 MG TABSR PO SCH (08:09)
[2021-04-07] MEDS: FUROSEMIDE 20 MG TAB PO SCH (08:09)
[2021-04-07] MEDS: WARFARIN SOD 2.5 MG TAB PO SCH (17:09)
[2021-04-07] MEDS: FAMOTIDINE 20 MG TAB PO SCH (20:20)
[2021-04-07] MEDS: SIMVASTATIN 20 MG TAB PO SCH (20:20)
[2021-04-07] MEDS: ACETAMINOPHEN/CODEINE 300MG - 30MG TAB PO PRN (22:25)
[2021-04-08] VITALS (7 sets, daily range): BP systolic 114–157; BP diastolic 79–98
[2021-04-08] MEDS: PIPERACILLIN/TAZOBACTAM 3.375 GM in SODIUM CHLORIDE 0.9% 50ML 50 ML IV SCH ×4 (01:57→20:02)
[2021-04-08 05:37] LABS: INR 1.76; PROTHROMBIN TIME 21.5 seconds (11.9-14.5)
[2021-04-08 05:47] LABS: ANION GAP 12.5 mmol/L (8-16); CALCIUM 8.5 mg/dL (8.4-10.2); CREATININE, SERUM 0.7 mg/dL (0.57-1.11); POTASSIUM 4.5 mmol/L (3.5-5.1)
[2021-04-08] MEDS: BUDESONIDE/FORMOTEROL 160/4.5MCG INHALER INH SCH ×2 (07:45→20:16)
[2021-04-08] MEDS: ALBUTEROL/IPRATROPIUM 3 ML NEB NEB SCH ×2 (08:05→20:05)
[2021-04-08] MEDS: FLUTICASONE PROPIONATE NASAL SPRAY NS SCH (09:26)
[2021-04-08] MEDS: METHYLPREDNISOLONE SOD SUCC 40 MG/ML VIAL 1ML IV SCH (09:26)
[2021-04-08] MEDS: VERAPAMIL HCL 120 MG TABSR PO SCH (09:30)
[2021-04-08] MEDS ORDERED: DILTIAZEM HCL 5 MG/ML 5 ML VIAL IV ONE (09:30)
[2021-04-08] MEDS: PANTOPRAZOLE SOD 40 MG TABEC PO SCH ×2 (09:31→16:33)
[2021-04-08] MEDS: SILDENAFIL CITRATE 20 MG TAB PO SCH ×2 (09:31→16:33)
[2021-04-08] MEDS: FUROSEMIDE 20 MG TAB PO SCH (09:31)
[2021-04-08] MEDS: ACETAMINOPHEN/CODEINE 300MG - 30MG TAB PO PRN (09:32)
[2021-04-08] MEDS: WARFARIN SOD 2.5 MG TAB PO SCH (16:33)
[2021-04-08] MEDS: SIMVASTATIN 20 MG TAB PO SCH (20:02)
[2021-04-08] MEDS: FAMOTIDINE 20 MG TAB PO SCH (20:02)
[2021-04-09 01:30] VITALS: BP 149/99
[2021-04-09] MEDS: PIPERACILLIN/TAZOBACTAM 3.375 GM in SODIUM CHLORIDE 0.9% 50ML 50 ML IV SCH ×2 (02:00→09:58)
[2021-04-09 05:58] VITALS: BP 145/85
[2021-04-09] MEDS: ALBUTEROL/IPRATROPIUM 3 ML NEB NEB SCH (07:45)
[2021-04-09] MEDS ORDERED: ACETAMINOPHEN/CODEINE 300MG - 30MG TAB PO PRN (08:00)
[2021-04-09 08:02] VITALS: BP 153/91
[2021-04-09] MEDS: BUDESONIDE/FORMOTEROL 160/4.5MCG INHALER INH SCH (08:02)
[2021-04-09] MEDS ORDERED: PREDNISONE 10 MG TAB PO SCH (09:00)
[2021-04-09 09:18] VITALS: BP 153/91
[2021-04-09] MEDS: FLUTICASONE PROPIONATE NASAL SPRAY NS SCH (09:58)
[2021-04-09] MEDS: PANTOPRAZOLE SOD 40 MG TABEC PO SCH (09:59)
[2021-04-09] MEDS: FUROSEMIDE 20 MG TAB PO SCH (09:59)
[2021-04-09] MEDS: VERAPAMIL HCL 120 MG TABSR PO SCH (09:59)
[2021-04-09] MEDS: SILDENAFIL CITRATE 20 MG TAB PO SCH (09:59)
[2021-04-09 10:03] LABS: INR 2.44; PROTHROMBIN TIME 27.7 seconds (11.9-14.5)
[2021-04-09 12:36] VITALS: BP 131/79
== END 2021-04-09 15:50 | disposition home or self-care (01) | DRG 189 ==
LOC: ER 15:29 → ERHOLD 17:08 → MED/SURG2 21:32 → OBSVTOIN 04-02 09:40
PROVIDERS: ADMIT Family Medicine; ATTEND Family Medicine
DX: J96.21 Acute and chronic respiratory failure with hypoxia (principal); I50.31 Acute diastolic (congestive) heart failure; J81.0 Acute pulmonary edema; J44.1 Chronic obstructive pulmonary disease with (acute) exacerbation; L03.113 Cellulitis of right upper limb; I48.20 Chronic atrial fibrillation, unspecified; L03.116 Cellulitis of left lower limb; L03.115 Cellulitis of right lower limb; I25.2 Old myocardial infarction; Z88.2 Allergy status to sulfonamides; Z91.041 Radiographic dye allergy status; K21.00 Gastro-esophageal reflux disease with esophagitis, without bleeding; Z87.440 Personal history of urinary (tract) infections; I25.10 Atherosclerotic heart disease of native coronary artery without angina pectoris; Z95.1 Presence of aortocoronary bypass graft; T45.515A Adverse effect of anticoagulants, initial encounter; R53.81 Other malaise; Z79.01 Long term (current) use of anticoagulants; D69.2 Other nonthrombocytopenic purpura; S60.411A Abrasion of left index finger, initial encounter; W55.03XA Scratched by cat, initial encounter; I27.23 Pulmonary hypertension due to lung diseases and hypoxia; J84.10 Pulmonary fibrosis, unspecified; R13.10 Dysphagia, unspecified; K21.9 Gastro-esophageal reflux disease without esophagitis; J34.2 Deviated nasal septum; Z95.820 Peripheral vascular angioplasty status with implants and grafts; Z20.822 Contact with and (suspected) exposure to COVID-19
CPT/HCPCS: 36415; 71045; 71250; 80048; 80053; 82550; 82553; 83880; 84484; 85025; 85610; 93005; 93971; 94640; 94664; 99251; 99284; G0378; J1160; J1940; J2543; J2920; J3430; J7050; J7512; U0002

== ENCOUNTER 2021-07-08 18:46 | Inpatient (IN) | payer MEDICARE ==
[~2021-07-08] VITALS: Ht 154.9 cm; Wt 45.4 kg
[2021-07-08 19:18] LABS: BASOPHILS % 0.6 % (0.0-1.0); EOSINOPHILS # (AUTO) 0.2 (0.0-0.4); EOSINOPHILS % 2.9 % (0.0-6.0); HEMATOCRIT 38.4 % (34.2-44.1); HEMOGLOBIN 11.8 g/dL (12.0-16.0); LYMPHOCYTES % 15.4 % (18.0-39.1); MEAN CORPUSCULAR HEMOGLOBIN 30.3 pg (28-32); MEAN CORPUSCULAR HGB CONC 30.7 g/dL (31-35); MEAN CORPUSCULAR VOLUME 98.5 fL (81-99); MONOCYTES # (AUTO) 0.6 (0.2-0.8); MONOCYTES % 8.7 % (4.4-11.3); NEUTROPHILS # (AUTO) 4.8 (2.1-6.9); NEUTROPHILS % 72.1 % (38.7-80.0); PLATELET COUNT 195 x10e3/uL (140-360); RED CELL DISTRIBUTION WIDTH 14.6 % (11.7-14.4)
[2021-07-08] MEDS ORDERED: ALBUTEROL/IPRATROPIUM 3 ML NEB NEB ONE (19:30)
[2021-07-08 19:32] LABS: ALBUMIN 3.3 g/dL (3.5-5.0); ALBUMIN/GLOBULIN RATIO 0.9 (0.8-2.0); ANION GAP 12.5 mmol/L (8-16); CREATININE, SERUM 0.69 mg/dL (0.57-1.11); POTASSIUM 4.5 mmol/L (3.5-5.1)
[2021-07-08] MEDS ORDERED: FUROSEMIDE INJ 10 MG/ML 4 ML VIAL IV ONE (21:00)
[2021-07-08] MEDS ORDERED: VERAPAMIL HCL 80 MG TAB PO STA (22:07)
[2021-07-08] MEDS ORDERED: VERAPAMIL HCL 80 MG TAB PO ONE (22:15)
[2021-07-08] MEDS ORDERED: VERAPAMIL HCL 120 MG TABSR PO ONE (22:17)
[2021-07-09] VITALS (10 sets, daily range): BP systolic 116–145; BP diastolic 72–85
[2021-07-09 06:28] LABS: BASOPHILS % 0.4 % (0.0-1.0); EOSINOPHILS # (AUTO) 0.2 (0.0-0.4); EOSINOPHILS % 2.5 % (0.0-6.0); HEMATOCRIT 35.8 % (34.2-44.1); HEMOGLOBIN 11.1 g/dL (12.0-16.0); LYMPHOCYTES # (AUTO) 1.3 (1.0-3.2); LYMPHOCYTES % 15.4 % (18.0-39.1); MEAN CORPUSCULAR HEMOGLOBIN 29.9 pg (28-32); MEAN CORPUSCULAR VOLUME 96.5 fL (81-99); MONOCYTES # (AUTO) 0.8 (0.2-0.8); MONOCYTES % 9.7 % (4.4-11.3); NEUTROPHILS % 71.8 % (38.7-80.0); PLATELET COUNT 174 x10e3/uL (140-360); RED BLOOD COUNT 3.71 x10e6/uL (3.6-5.1); RED CELL DISTRIBUTION WIDTH 14.5 % (11.7-14.4)
[2021-07-09 06:44] LABS: ANION GAP 14.9 mmol/L (8-16); CALCIUM 8.7 mg/dL (8.4-10.2); CREATININE, SERUM 0.64 mg/dL (0.57-1.11); POTASSIUM 4.9 mmol/L (3.5-5.1)
[2021-07-09] MEDS ORDERED: VERAPAMIL HCL 80 MG TAB PO ONE (09:00)
[2021-07-09] MEDS ORDERED: ALBUTEROL/IPRATROPIUM 3 ML NEB NEB PRN (09:30)
[2021-07-09] MEDS ORDERED: FUROSEMIDE INJ 10 MG/ML 4 ML VIAL IV SCH (10:30)
[2021-07-09 10:57] LABS: INR 2.38; PROTHROMBIN TIME 26.4 seconds (11.9-14.5)
[2021-07-09] MEDS ORDERED: FUROSEMIDE INJ 10 MG/ML 2 ML VIAL IV NR (12:30)
[2021-07-09] MEDS ORDERED: METOPROLOL TARTRATE INJ 1 MG/ML VIAL IV PRN (16:45)
[2021-07-09] MEDS: SILDENAFIL CITRATE 20 MG TAB PO SCH (16:52)
[2021-07-09] MEDS: PANTOPRAZOLE SOD 40 MG TABEC PO SCH (16:52)
[2021-07-09] MEDS ORDERED: WARFARIN SOD 5 MG TAB PO SCH (17:00)
[2021-07-09] MEDS: FUROSEMIDE INJ 10 MG/ML 4 ML VIAL IV SCH (17:38)
[2021-07-09] MEDS: BUDESONIDE/FORMOTEROL 160/4.5MCG INHALER INH SCH (20:05)
[2021-07-09] MEDS: IPRATROPIUM BROMIDE 0.02% 2.5 ML NEB NEB SCH (20:05)
[2021-07-09] MEDS: SIMVASTATIN 20 MG TAB PO SCH (21:38)
[2021-07-09] MEDS: VERAPAMIL HCL 120 MG TABSR PO SCH (21:39)
[2021-07-09] MEDS: METHYLPREDNISOLONE SOD SUCC 40 MG/ML VIAL 1ML IV SCH (21:39)
[2021-07-10] VITALS (8 sets, daily range): BP systolic 108–134; BP diastolic 67–83
[2021-07-10 05:52] LABS: BASOPHILS % 0.2 % (0.0-1.0); EOSINOPHILS % 0.2 % (0.0-6.0); HEMATOCRIT 36.3 % (34.2-44.1); HEMOGLOBIN 11.4 g/dL (12.0-16.0); LYMPHOCYTES # (AUTO) 0.5 (1.0-3.2); MEAN CORPUSCULAR HEMOGLOBIN 29.7 pg (28-32); MEAN CORPUSCULAR HGB CONC 31.4 g/dL (31-35); MEAN CORPUSCULAR VOLUME 94.5 fL (81-99); MONOCYTES # (AUTO) 0.1 (0.2-0.8); MONOCYTES % 1.4 % (4.4-11.3); NEUTROPHILS # (AUTO) 5.1 (2.1-6.9); NEUTROPHILS % 88.9 % (38.7-80.0); PLATELET COUNT 172 x10e3/uL (140-360); RED BLOOD COUNT 3.84 x10e6/uL (3.6-5.1); RED CELL DISTRIBUTION WIDTH 14.4 % (11.7-14.4)
[2021-07-10] MEDS: IPRATROPIUM BROMIDE 0.02% 2.5 ML NEB NEB SCH ×2 (06:00→20:00)
[2021-07-10 07:51] LABS: ALBUMIN/GLOBULIN RATIO 0.9 (0.8-2.0); ANION GAP 15.1 mmol/L (8-16); CALCIUM 8.8 mg/dL (8.4-10.2); CREATININE, SERUM 0.79 mg/dL (0.57-1.11); POTASSIUM 4.1 mmol/L (3.5-5.1)
[2021-07-10] MEDS: METHYLPREDNISOLONE SOD SUCC 40 MG/ML VIAL 1ML IV SCH ×2 (09:56→20:54)
[2021-07-10] MEDS: FUROSEMIDE INJ 10 MG/ML 4 ML VIAL IV SCH (09:56)
[2021-07-10] MEDS: SILDENAFIL CITRATE 20 MG TAB PO SCH ×2 (09:57→16:41)
[2021-07-10] MEDS: PANTOPRAZOLE SOD 40 MG TABEC PO SCH ×2 (10:00→16:40)
[2021-07-10] MEDS: BUDESONIDE/FORMOTEROL 160/4.5MCG INHALER INH SCH ×2 (12:21→17:30)
[2021-07-10] MEDS: WARFARIN SOD 5 MG TAB PO SCH (16:42)
[2021-07-10] MEDS: SIMVASTATIN 20 MG TAB PO SCH (20:54)
[2021-07-10] MEDS: VERAPAMIL HCL 120 MG TABSR PO SCH (20:54)
[2021-07-10] MEDS: ACETAMINOPHEN/CODEINE 300MG - 30MG TAB PO PRN (21:25)
[2021-07-11] VITALS (8 sets, daily range): BP systolic 107–151; BP diastolic 73–88
[2021-07-11] MEDS: IPRATROPIUM BROMIDE 0.02% 2.5 ML NEB NEB SCH ×2 (07:30→18:26)
[2021-07-11] MEDS: PANTOPRAZOLE SOD 40 MG TABEC PO SCH ×2 (07:50→17:34)
[2021-07-11 09:14] LABS: BASOPHILS % 0.1 % (0.0-1.0); HEMATOCRIT 35.5 % (34.2-44.1); HEMOGLOBIN 11.1 g/dL (12.0-16.0); LYMPHOCYTES # (AUTO) 0.6 (1.0-3.2); LYMPHOCYTES % 7.8 % (18.0-39.1); MEAN CORPUSCULAR HEMOGLOBIN 30.1 pg (28-32); MEAN CORPUSCULAR HGB CONC 31.3 g/dL (31-35); MEAN CORPUSCULAR VOLUME 96.2 fL (81-99); MONOCYTES # (AUTO) 0.3 (0.2-0.8); MONOCYTES % 3.6 % (4.4-11.3); NEUTROPHILS # (AUTO) 6.8 (2.1-6.9); PLATELET COUNT 174 x10e3/uL (140-360); RED BLOOD COUNT 3.69 x10e6/uL (3.6-5.1); RED CELL DISTRIBUTION WIDTH 14.3 % (11.7-14.4)
[2021-07-11 09:43] LABS: ANION GAP 16.2 mmol/L (8-16); CALCIUM 9.2 mg/dL (8.4-10.2); CREATININE, SERUM 0.77 mg/dL (0.57-1.11); POTASSIUM 4.2 mmol/L (3.5-5.1)
[2021-07-11] MEDS: SILDENAFIL CITRATE 20 MG TAB PO SCH ×2 (09:54→17:34)
[2021-07-11] MEDS: METHYLPREDNISOLONE SOD SUCC 40 MG/ML VIAL 1ML IV SCH ×2 (09:54→20:37)
[2021-07-11] MEDS: FUROSEMIDE INJ 10 MG/ML 4 ML VIAL IV SCH (09:54)
[2021-07-11] MEDS: ACETAMINOPHEN/CODEINE 300MG - 30MG TAB PO PRN (09:55)
[2021-07-11] MEDS: BUDESONIDE/FORMOTEROL 160/4.5MCG INHALER INH SCH ×2 (10:30→18:26)
[2021-07-11] MEDS: VERAPAMIL HCL 120 MG TABSR PO SCH (20:37)
[2021-07-11] MEDS: SIMVASTATIN 20 MG TAB PO SCH (20:37)
[2021-07-12] VITALS (8 sets, daily range): BP systolic 108–138; BP diastolic 62–74
[2021-07-12 06:10] LABS: HEMATOCRIT 32.3 % (34.2-44.1); HEMOGLOBIN 10.1 g/dL (12.0-16.0); LYMPHOCYTES # (AUTO) 0.5 (1.0-3.2); LYMPHOCYTES % 7.9 % (18.0-39.1); MEAN CORPUSCULAR HEMOGLOBIN 29.5 pg (28-32); MEAN CORPUSCULAR HGB CONC 31.3 g/dL (31-35); MEAN CORPUSCULAR VOLUME 94.4 fL (81-99); MONOCYTES # (AUTO) 0.2 (0.2-0.8); MONOCYTES % 2.9 % (4.4-11.3); NEUTROPHILS % 88.8 % (38.7-80.0); PLATELET COUNT 145 x10e3/uL (140-360); RED BLOOD COUNT 3.42 x10e6/uL (3.6-5.1); RED CELL DISTRIBUTION WIDTH 14.2 % (11.7-14.4)
[2021-07-12 06:29] LABS: INR 2.29; PROTHROMBIN TIME 25.6 seconds (11.9-14.5)
[2021-07-12 06:44] LABS: ANION GAP 14.3 mmol/L (8-16); CALCIUM 8.6 mg/dL (8.4-10.2); CREATININE, SERUM 0.7 mg/dL (0.57-1.11); POTASSIUM 4.3 mmol/L (3.5-5.1)
[2021-07-12] MEDS: IPRATROPIUM BROMIDE 0.02% 2.5 ML NEB NEB SCH ×2 (07:21→19:38)
[2021-07-12] MEDS: PANTOPRAZOLE SOD 40 MG TABEC PO SCH ×2 (07:30→16:30)
[2021-07-12] MEDS: BUDESONIDE/FORMOTEROL 160/4.5MCG INHALER INH SCH ×2 (07:36→19:38)
[2021-07-12] MEDS: SILDENAFIL CITRATE 20 MG TAB PO SCH ×2 (09:00→17:00)
[2021-07-12] MEDS: METHYLPREDNISOLONE SOD SUCC 40 MG/ML VIAL 1ML IV SCH ×2 (09:00→20:11)
[2021-07-12] MEDS: ACETAMINOPHEN/CODEINE 300MG - 30MG TAB PO PRN (11:00)
[2021-07-12] MEDS: FUROSEMIDE 40 MG TAB PO SCH (13:25)
[2021-07-12] MEDS: WARFARIN SOD 5 MG TAB PO SCH (17:00)
[2021-07-12] MEDS: SIMVASTATIN 20 MG TAB PO SCH (20:11)
[2021-07-12] MEDS: VERAPAMIL HCL 120 MG TABSR PO SCH (20:11)
[2021-07-13 00:27] VITALS: BP 99/62
[2021-07-13 05:33] VITALS: BP 130/80
[2021-07-13 06:25] LABS: HEMATOCRIT 36.8 % (34.2-44.1); HEMOGLOBIN 11.6 g/dL (12.0-16.0); LYMPHOCYTES # (AUTO) 0.5 (1.0-3.2); LYMPHOCYTES % 6.8 % (18.0-39.1); MEAN CORPUSCULAR HEMOGLOBIN 29.5 pg (28-32); MEAN CORPUSCULAR HGB CONC 31.5 g/dL (31-35); MEAN CORPUSCULAR VOLUME 93.6 fL (81-99); MONOCYTES # (AUTO) 0.2 (0.2-0.8); MONOCYTES % 3.3 % (4.4-11.3); NEUTROPHILS # (AUTO) 6.3 (2.1-6.9); NEUTROPHILS % 89.5 % (38.7-80.0); PLATELET COUNT 178 x10e3/uL (140-360); RED BLOOD COUNT 3.93 x10e6/uL (3.6-5.1); RED CELL DISTRIBUTION WIDTH 13.9 % (11.7-14.4)
[2021-07-13 06:39] LABS: INR 2.06; PROTHROMBIN TIME 23.9 seconds (11.9-14.5)
[2021-07-13 06:49] LABS: CALCIUM 8.7 mg/dL (8.4-10.2); CREATININE, SERUM 0.76 mg/dL (0.57-1.11)
[2021-07-13] MEDS: BUDESONIDE/FORMOTEROL 160/4.5MCG INHALER INH SCH ×2 (07:15→08:19)
[2021-07-13] MEDS: IPRATROPIUM BROMIDE 0.02% 2.5 ML NEB NEB SCH (07:15)
[2021-07-13] MEDS: PANTOPRAZOLE SOD 40 MG TABEC PO SCH (07:30)
[2021-07-13 07:39] VITALS: BP 135/95
[2021-07-13] MEDS: SILDENAFIL CITRATE 20 MG TAB PO SCH (09:00)
[2021-07-13] MEDS: METHYLPREDNISOLONE SOD SUCC 40 MG/ML VIAL 1ML IV SCH (09:00)
[2021-07-13] MEDS: FUROSEMIDE 40 MG TAB PO SCH (09:00)
[2021-07-13 10:42] VITALS: BP 135/95
[2021-07-13] MEDS ORDERED: LASIX40 MG PO (11:28)
[2021-07-13 12:00] VITALS: BP 132/82
== END 2021-07-13 15:00 | disposition home or self-care (01) | DRG 291 ==
LOC: ER 19:42 → ERHOLD 21:00 → MED/SURG 23:52 → OBSVTOIN 07-10 12:44
PROVIDERS: ADMIT Family Medicine; ATTEND Family Medicine
DX: I11.0 Hypertensive heart disease with heart failure (principal); J96.21 Acute and chronic respiratory failure with hypoxia; I50.33 Acute on chronic diastolic (congestive) heart failure; J44.1 Chronic obstructive pulmonary disease with (acute) exacerbation; I48.20 Chronic atrial fibrillation, unspecified; Z99.81 Dependence on supplemental oxygen; I25.2 Old myocardial infarction; I25.10 Atherosclerotic heart disease of native coronary artery without angina pectoris; K21.9 Gastro-esophageal reflux disease without esophagitis; Z88.2 Allergy status to sulfonamides; Z91.048 Other nonmedicinal substance allergy status; Z20.822 Contact with and (suspected) exposure to COVID-19; Z95.1 Presence of aortocoronary bypass graft; J84.10 Pulmonary fibrosis, unspecified; I07.1 Rheumatic tricuspid insufficiency; I27.23 Pulmonary hypertension due to lung diseases and hypoxia; Z79.01 Long term (current) use of anticoagulants; I48.0 Paroxysmal atrial fibrillation; R53.81 Other malaise; M81.0 Age-related osteoporosis without current pathological fracture
CPT/HCPCS: 36415; 71045; 74230; 80048; 80053; 83605; 83880; 84484; 85025; 85610; 87040; 93005; 93306; 94640; 94664; 99284; G0378; J1940; J2920; U0002

== ENCOUNTER 2021-11-05 21:38 | Emergency (ER) | payer MEDICARE, OTHER ==
[~2021-11-05] VITALS: Ht 307.3 cm; Wt 45.4 kg
[~2021-11-05 21:38] MED LIST changes: +LASIX40 MG PO
[2021-11-05] MEDS ORDERED: VERAPAMIL HCL 120 MG TABSR PO ONE ×2 (22:45→22:46)
[2021-11-05 23:02] VITALS: BP 125/89
== END 2021-11-05 23:50 | disposition home or self-care (01) ==
LOC: ER 21:58
DX: S39.012A Strain of muscle, fascia and tendon of lower back, initial encounter (principal); S80.01XA Contusion of right knee, initial encounter; W01.0XXA Fall on same level from slipping, tripping and stumbling without subsequent striking against object, initial encounter; Y93.01 Activity, walking, marching and hiking; Y92.008 Other place in unspecified non-institutional (private) residence as the place of occurrence of the external cause; I10 Essential (primary) hypertension; J44.9 Chronic obstructive pulmonary disease, unspecified; I50.9 Heart failure, unspecified; K21.9 Gastro-esophageal reflux disease without esophagitis; G89.29 Other chronic pain; Z95.1 Presence of aortocoronary bypass graft
CPT/HCPCS: 72100; 99284

== ENCOUNTER 2021-12-15 16:38 | Inpatient (IN) | payer MEDICARE ==
[~2021-12-15] VITALS: Ht 167.6 cm; Wt 45.4 kg
[2021-12-15 17:04] LABS: ABG HCO3 35 mmol/L (22-26); ABG PCO2 48 mmHg (35-45); ABG PH 7.46 (7.35-7.45); ABG PO2 69 mmHg (80-105); ABG TCO2 37
[2021-12-15 17:21] LABS: BASOPHILS % 0.2 % (0.0-1.0); EOSINOPHILS # (AUTO) 0.1 (0.0-0.4); HEMATOCRIT 35.7 % (34.2-44.1); HEMOGLOBIN 11.1 g/dL (12.0-16.0); LYMPHOCYTES # (AUTO) 1.1 (1.0-3.2); LYMPHOCYTES % 17.2 % (18.0-39.1); MEAN CORPUSCULAR HEMOGLOBIN 30.5 pg (28-32); MEAN CORPUSCULAR HGB CONC 31.1 g/dL (31-35); MEAN CORPUSCULAR VOLUME 98.1 fL (81-99); MONOCYTES # (AUTO) 0.6 (0.2-0.8); MONOCYTES % 9.7 % (4.4-11.3); NEUTROPHILS # (AUTO) 4.4 (2.1-6.9); NEUTROPHILS % 71.6 % (38.7-80.0); PLATELET COUNT 111 x10e3/uL (140-360); RED BLOOD COUNT 3.64 x10e6/uL (3.6-5.1); RED CELL DISTRIBUTION WIDTH 14.4 % (11.7-14.4)
[2021-12-15 17:32] LABS: INR 1.06; PROTHROMBIN TIME 14.8 seconds (11.9-14.5)
[2021-12-15 17:33] LABS: PARTIAL THROMBOPLASTIN TIME 27.5 seconds (23.8-35.5)
[2021-12-15 17:39] LABS: ALBUMIN 3.2 g/dL (3.5-5.0); ANION GAP 11.6 mmol/L (8-16); CALCIUM 9.2 mg/dL (8.4-10.2); CREATININE, SERUM 0.76 mg/dL (0.57-1.11); POTASSIUM 3.6 mmol/L (3.5-5.1)
[2021-12-15] MEDS ORDERED: ONDANSETRON HCL INJ 2MG/ML 2ML 2 MG/ML VIAL IV STA (18:09)
[2021-12-15] MEDS ORDERED: FUROSEMIDE INJ 10 MG/ML 4 ML VIAL IV ONE (18:15)
[2021-12-15] MEDS ORDERED: ONDANSETRON HCL INJ 2MG/ML 2ML 2 MG/ML VIAL ONE (18:22)
[2021-12-15] MEDS ORDERED: FUROSEMIDE INJ 10 MG/ML 4 ML VIAL ONE (18:22)
[2021-12-15] MEDS ORDERED: SODIUM CHLORIDE FLUSH 10 ML SYR INJ PRN (18:30)
[2021-12-15] MEDS ORDERED: ONDANSETRON HCL INJ 2MG/ML 2ML 2 MG/ML VIAL IV PRN (18:30)
[2021-12-15 20:46] VITALS: BP 118/84
[2021-12-15 21:00] VITALS: BP 118/84
[2021-12-16] VITALS (7 sets, daily range): BP systolic 112–135; BP diastolic 65–96
[2021-12-16] MEDS ORDERED: DILTIAZEM HCL 5 MG/ML 5 ML VIAL IV STA (02:04)
[2021-12-16 05:17] LABS: CREATINE KINASE MB 3.4 ng/mL (0-5.0)
[2021-12-16 05:45] LABS: CHOL/HDL RATIO 2.9 (3.0-3.6)
[2021-12-16] MEDS: FUROSEMIDE INJ 10 MG/ML 4 ML VIAL IV SCH ×2 (08:06→21:49)
[2021-12-16 12:31] LABS: CREATINE KINASE MB 2.1 ng/mL (0-5.0)
[2021-12-16] MEDS ORDERED: ACETAMINOPHEN/CODEINE 300MG - 30MG TAB PO PRN (18:30)
[2021-12-16] MEDS ORDERED: WARFARIN SOD 5 MG TAB PO SCH ×2 (18:30)
[2021-12-16] MEDS: BUDESONIDE/FORMOTEROL 160/4.5MCG INHALER INH SCH (19:00)
[2021-12-16] MEDS: VERAPAMIL HCL 120 MG TABSR PO SCH (21:49)
[2021-12-16] MEDS: SIMVASTATIN 20 MG TAB PO SCH (21:50)
[2021-12-17] VITALS (8 sets, daily range): BP systolic 111–149; BP diastolic 67–86
[2021-12-17] MEDS: ALBUTEROL/IPRATROPIUM 3 ML NEB NEB SCH ×4 (00:55→19:52)
[2021-12-17 05:08] LABS: INR 1.11; PROTHROMBIN TIME 15.3 seconds (11.9-14.5)
[2021-12-17] MEDS: BUDESONIDE/FORMOTEROL 160/4.5MCG INHALER INH SCH (07:45)
[2021-12-17] MEDS: PANTOPRAZOLE SOD 40 MG TABEC PO SCH ×2 (09:03→15:58)
[2021-12-17] MEDS: SILDENAFIL CITRATE 20 MG TAB PO SCH ×2 (09:03→15:58)
[2021-12-17] MEDS: FUROSEMIDE INJ 10 MG/ML 4 ML VIAL IV SCH ×2 (09:03→21:48)
[2021-12-17] MEDS ORDERED: ONDANSETRON HCL 4 MG ORAL DISINTEGRATING TAB PO PRN (09:30)
[2021-12-17] MEDS ORDERED: ONDANSETRON HCL INJ 2MG/ML 2ML 2 MG/ML VIAL IV PRN (15:15)
[2021-12-17] MEDS ORDERED: METOCLOPRAMIDE HCL 10 MG/2ML VIAL IV ONE (17:15)
[2021-12-17] MEDS: VERAPAMIL HCL 120 MG TABSR PO SCH (21:49)
[2021-12-17] MEDS: SIMVASTATIN 20 MG TAB PO SCH (21:49)
[2021-12-18] VITALS: BP 129/85
[2021-12-18] MEDS: ALBUTEROL/IPRATROPIUM 3 ML NEB NEB SCH ×3 (01:20→13:43)
[2021-12-18 04:00] VITALS: BP 110/62
[2021-12-18 05:07] LABS: INR 1.15; PROTHROMBIN TIME 15.7 seconds (11.9-14.5)
[2021-12-18 08:00] VITALS: BP 145/78
[2021-12-18] MEDS: BUDESONIDE/FORMOTEROL 160/4.5MCG INHALER INH SCH (08:10)
[2021-12-18] MEDS: SILDENAFIL CITRATE 20 MG TAB PO SCH ×2 (08:46→17:03)
[2021-12-18] MEDS: PANTOPRAZOLE SOD 40 MG TABEC PO SCH ×2 (08:46→17:03)
[2021-12-18] MEDS: FUROSEMIDE INJ 10 MG/ML 4 ML VIAL IV SCH (08:46)
[2021-12-18 09:00] VITALS: BP 145/78
[2021-12-18 12:00] VITALS: BP 103/62
[2021-12-18 16:00] VITALS: BP 114/83
[2021-12-18] MEDS ORDERED: ONDANSETRON HCL 4 MG ORAL DISINTEGRATING TAB PO PRN (17:00)
[2021-12-18] MEDS ORDERED: FUROSEMIDE 40 MG TAB PO SCH (21:00)
== END 2021-12-18 18:27 | disposition home or self-care (01) | DRG 291 ==
LOC: ER 17:15 → ERHOLD 18:18 → MED/SURG 19:54 → OBSVTOIN 12-17 11:32
PROVIDERS: ADMIT Family Medicine; ATTEND Family Medicine
DX: I11.0 Hypertensive heart disease with heart failure (principal); I50.43 Acute on chronic combined systolic (congestive) and diastolic (congestive) heart failure; J44.1 Chronic obstructive pulmonary disease with (acute) exacerbation; I48.20 Chronic atrial fibrillation, unspecified; E44.0 Moderate protein-calorie malnutrition; R64 Cachexia; Z68.1 Body mass index [BMI] 19.9 or less, adult; Z99.81 Dependence on supplemental oxygen
CPT/HCPCS: 36415; 36600; 71045; 80053; 80061; 82550; 82553; 82805; 83735; 83880; 84484; 85025; 85610; 85730; 93005; 93306; 94640; 94664; 94799; 97139; 99251; 99284; G0378; J1940; J2405; J2765; Q0162; U0002

== ENCOUNTER 2022-03-22 20:38 | Inpatient (IN) | payer MEDICARE ==
[~2022-03-22] VITALS: Ht 167.6 cm; Wt 45.4 kg
[2022-03-22] MEDS ORDERED: SODIUM CHLORIDE 0.9% 1000ML 1,000 ML IV STA (20:41)
[2022-03-22] MEDS ORDERED: ALBUTEROL/IPRATROPIUM 3 ML NEB NEB STA (21:01)
[2022-03-22 21:12] LABS: BASOPHILS % 0.2 % (0.0-1.0); EOSINOPHILS # (AUTO) 0.1 (0.0-0.4); HEMATOCRIT 36.3 % (34.2-44.1); HEMOGLOBIN 10.8 g/dL (12.0-16.0); MEAN CORPUSCULAR HEMOGLOBIN 30.9 pg (28-32); MEAN CORPUSCULAR HGB CONC 29.8 g/dL (31-35); MONOCYTES # (AUTO) 0.4 (0.2-0.8); MONOCYTES % 7.3 % (4.4-11.3); NEUTROPHILS # (AUTO) 3.6 (2.1-6.9); NEUTROPHILS % 70.5 % (38.7-80.0); PLATELET COUNT 118 x10e3/uL (140-360); RED BLOOD COUNT 3.49 x10e6/uL (3.6-5.1); RED CELL DISTRIBUTION WIDTH 13.8 % (11.7-14.4)
[2022-03-22 21:22] LABS: INR 1.21; PROTHROMBIN TIME 16.4 seconds (11.9-14.5)
[2022-03-22 21:29] LABS: ALBUMIN 3.4 g/dL (3.5-5.0); ALBUMIN/GLOBULIN RATIO 0.9 (0.8-2.0); ANION GAP 13.9 mmol/L (8-16); CALCIUM 9.2 mg/dL (8.4-10.2); CREATININE, SERUM 0.74 mg/dL (0.57-1.11); POTASSIUM 3.9 mmol/L (3.5-5.1)
[2022-03-22 21:36] LABS: CREATINE KINASE MB 3.6 ng/mL (0-5.0)
[2022-03-22] MEDS ORDERED: Morphine 4mg INJECTION 4 MG/ML INJ IV PRN (22:00)
[2022-03-22] MEDS ORDERED: ONDANSETRON HCL INJ 2MG/ML 2ML 2 MG/ML VIAL IV PRN (22:00)
[2022-03-22] MEDS: METHYLPREDNISOLONE SOD SUCC 125 MG/2ML VIAL IV SCH (22:52)
[2022-03-22 23:45] VITALS: BP 156/88
[2022-03-23] VITALS (30 sets, daily range): BP systolic 102–184; BP diastolic 61–109
[2022-03-23] MEDS ORDERED: HYDRALAZINE HCL 20 MG/ML VIAL IV PRN (05:15)
[2022-03-23 06:04] LABS: BASOPHILS % 0.2 % (0.0-1.0); EOSINOPHILS % 0.2 % (0.0-6.0); HEMATOCRIT 34.4 % (34.2-44.1); HEMOGLOBIN 10.5 g/dL (12.0-16.0); LYMPHOCYTES # (AUTO) 0.4 (1.0-3.2); LYMPHOCYTES % 10.3 % (18.0-39.1); MEAN CORPUSCULAR HEMOGLOBIN 30.7 pg (28-32); MEAN CORPUSCULAR HGB CONC 30.5 g/dL (31-35); MEAN CORPUSCULAR VOLUME 100.6 fL (81-99); MONOCYTES # (AUTO) 0.1 (0.2-0.8); MONOCYTES % 1.6 % (4.4-11.3); NEUTROPHILS # (AUTO) 3.8 (2.1-6.9); NEUTROPHILS % 87.5 % (38.7-80.0); PLATELET COUNT 113 x10e3/uL (140-360); RED BLOOD COUNT 3.42 x10e6/uL (3.6-5.1); RED CELL DISTRIBUTION WIDTH 13.5 % (11.7-14.4)
[2022-03-23] MEDS: METHYLPREDNISOLONE SOD SUCC 125 MG/2ML VIAL IV SCH ×2 (06:18→13:47)
[2022-03-23 06:21] LABS: CREATINE KINASE MB 2.8 ng/mL (0-5.0)
[2022-03-23 06:22] LABS: ALBUMIN 3.2 g/dL (3.5-5.0); ANION GAP 14.4 mmol/L (8-16); CALCIUM 8.8 mg/dL (8.4-10.2); CREATININE, SERUM 0.7 mg/dL (0.57-1.11); POTASSIUM 4.4 mmol/L (3.5-5.1)
[2022-03-23] MEDS: FUROSEMIDE 40 MG TAB PO SCH (09:08)
[2022-03-23] MEDS: PANTOPRAZOLE SOD 40 MG TABEC PO SCH ×2 (09:09→18:27)
[2022-03-23] MEDS: SILDENAFIL CITRATE 20 MG TAB PO SCH ×2 (09:10→18:27)
[2022-03-23] MEDS: ATROPINE SULFATE 1 MG/ML VIAL IV PRN ×2 (11:04→14:33)
[2022-03-23 18:19] LABS: CREATINE KINASE MB 3.8 ng/mL (0-5.0)
[2022-03-23] MEDS: BUDESONIDE 0.5MG/2 ML NEB INH SCH (20:37)
[2022-03-23] MEDS: ALBUTEROL/IPRATROPIUM 3 ML NEB NEB SCH (20:37)
[2022-03-23] MEDS: ACETAMINOPHEN/CODEINE 300MG - 30MG TAB PO PRN (20:47)
[2022-03-23] MEDS: SIMVASTATIN 20 MG TAB PO SCH (20:52)
[2022-03-23] MEDS ORDERED: VERAPAMIL HCL 120 MG TABSR PO SCH (21:00)
[2022-03-23] MEDS: METHYLPREDNISOLONE SOD SUCC 40 MG/ML VIAL 1ML IV SCH (21:25)
[2022-03-24] VITALS (9 sets, daily range): BP systolic 30–162; BP diastolic 20–85
[2022-03-24] MEDS: ALBUTEROL/IPRATROPIUM 3 ML NEB NEB SCH ×4 (02:05→18:50)
[2022-03-24] MEDS: METHYLPREDNISOLONE SOD SUCC 40 MG/ML VIAL 1ML IV SCH ×2 (05:34→17:39)
[2022-03-24] MEDS: BUDESONIDE 0.5MG/2 ML NEB INH SCH ×2 (06:15→18:50)
[2022-03-24] MEDS: PANTOPRAZOLE SOD 40 MG TABEC PO SCH ×2 (08:51→17:39)
[2022-03-24] MEDS: SILDENAFIL CITRATE 20 MG TAB PO SCH ×2 (08:51→17:39)
[2022-03-24] MEDS: FUROSEMIDE 40 MG TAB PO SCH (08:51)
[2022-03-24] MEDS: ACETAMINOPHEN/CODEINE 300MG - 30MG TAB PO PRN ×2 (09:10→20:38)
[2022-03-24] MEDS: SIMVASTATIN 20 MG TAB PO SCH (20:37)
[2022-03-25] VITALS (11 sets, daily range): BP systolic 114–157; BP diastolic 56–88
[2022-03-25] MEDS: ALBUTEROL/IPRATROPIUM 3 ML NEB NEB SCH ×4 (01:00→19:35)
[2022-03-25 05:49] LABS: HEMATOCRIT 31.5 % (34.2-44.1); HEMOGLOBIN 9.7 g/dL (12.0-16.0); LYMPHOCYTES # (AUTO) 0.4 (1.0-3.2); LYMPHOCYTES % 7.2 % (18.0-39.1); MEAN CORPUSCULAR HGB CONC 30.8 g/dL (31-35); MEAN CORPUSCULAR VOLUME 100.6 fL (81-99); MONOCYTES # (AUTO) 0.2 (0.2-0.8); MONOCYTES % 3.9 % (4.4-11.3); NEUTROPHILS # (AUTO) 4.8 (2.1-6.9); NEUTROPHILS % 88.5 % (38.7-80.0); PLATELET COUNT 122 x10e3/uL (140-360); RED BLOOD COUNT 3.13 x10e6/uL (3.6-5.1); RED CELL DISTRIBUTION WIDTH 13.9 % (11.7-14.4)
[2022-03-25 06:10] LABS: ANION GAP 14.9 mmol/L (8-16); CALCIUM 8.3 mg/dL (8.4-10.2); CREATININE, SERUM 0.68 mg/dL (0.57-1.11); POTASSIUM 3.9 mmol/L (3.5-5.1)
[2022-03-25] MEDS: BUDESONIDE 0.5MG/2 ML NEB INH SCH ×2 (07:04→19:35)
[2022-03-25] MEDS: SILDENAFIL CITRATE 20 MG TAB PO SCH ×2 (09:00→16:33)
[2022-03-25] MEDS: PANTOPRAZOLE SOD 40 MG TABEC PO SCH ×2 (09:00→16:32)
[2022-03-25] MEDS: METHYLPREDNISOLONE SOD SUCC 40 MG/ML VIAL 1ML IV SCH ×3 (09:00→16:31)
[2022-03-25] MEDS ORDERED: GENTAMICIN SULFATE 40 MG/ML 2 ML VIAL ONE (13:44)
[2022-03-25] MEDS ORDERED: LIDOCAINE 1% W/EPINEPHRINE 20 ML VIAL ONE (13:45)
[2022-03-25] MEDS ORDERED: Vancomycin IV 1 GM VIAL ONE ×2 (13:45→15:02)
[2022-03-25] MEDS ORDERED: SODIUM CHLORIDE 0.9% 500ML 0 ML ONE (13:46)
[2022-03-25] MEDS ORDERED: SODIUM CHLORIDE 0.9% 1000ML 0 ML ONE (13:46)
[2022-03-25] MEDS ORDERED: LIDOCAINE HCL 1% LOCAL INJ 20 ML VIAL ONE (13:46)
[2022-03-25] MEDS ORDERED: MIDAZOLAM HCL 2 MG/2 ML VIAL ONE (14:59)
[2022-03-25] MEDS ORDERED: FENTANYL CITRATE/PF 100MCG/2 ML INJ ONE (15:00)
[2022-03-25] MEDS ORDERED: SODIUM CHLORIDE 0.9% 1000ML 1,000 ML ONE (15:00)
[2022-03-25] MEDS ORDERED: SODIUM CHLORIDE 0.9% 250ML 0 ML ONE (15:02)
[2022-03-25] MEDS: FUROSEMIDE 40 MG TAB PO SCH (16:31)
[2022-03-25] MEDS: SIMVASTATIN 20 MG TAB PO SCH (21:08)
[2022-03-25] MEDS: ACETAMINOPHEN/CODEINE 300MG - 30MG TAB PO PRN (21:09)
[2022-03-26] VITALS: BP 150/80
== END 2022-03-26 00:47 | disposition short-term general hospital (02) | DRG 308 ==
LOC: ER 20:40 → ERHOLD 22:17 → ICU 23:45
PROVIDERS: ADMIT Family Medicine; ATTEND Family Medicine
DX: I48.21 Permanent atrial fibrillation (principal); I50.43 Acute on chronic combined systolic (congestive) and diastolic (congestive) heart failure; J44.1 Chronic obstructive pulmonary disease with (acute) exacerbation; J84.112 Idiopathic pulmonary fibrosis; I49.5 Sick sinus syndrome; D69.6 Thrombocytopenia, unspecified; I11.0 Hypertensive heart disease with heart failure; R09.02 Hypoxemia; E78.00 Pure hypercholesterolemia, unspecified; I25.10 Atherosclerotic heart disease of native coronary artery without angina pectoris; R06.89 Other abnormalities of breathing; R06.03 Acute respiratory distress; E78.5 Hyperlipidemia, unspecified; Z82.49 Family history of ischemic heart disease and other diseases of the circulatory system; Z79.01 Long term (current) use of anticoagulants; Z95.1 Presence of aortocoronary bypass graft; Z87.891 Personal history of nicotine dependence; Z20.822 Contact with and (suspected) exposure to COVID-19
CPT/HCPCS: 36415; 71045; 80048; 80053; 80162; 82550; 82553; 83605; 83735; 83880; 84443; 84484; 85025; 85379; 85610; 87040; 93005; 93306; 94640; 94799; 97139; 99284; J0461; J1580; J2001; J2250; J2405; J2543; J2920; J2930; J3010; J3370; J7030; J7040; J7050

== ENCOUNTER 2022-04-23 17:56 | Inpatient (IN) | payer MEDICARE ==
[~2022-04-23] VITALS: Ht 152.4 cm; Wt 45.4 kg
[2022-04-23] MEDS ORDERED: ALBUTEROL/IPRATROPIUM 3 ML NEB NEB PRN (18:15)
[2022-04-23] MEDS ORDERED: METHYLPREDNISOLONE SOD SUCC 125 MG/2ML VIAL IV ONE (18:15)
[2022-04-23 18:32] LABS: BASOPHILS % 0.4 % (0.0-1.0); EOSINOPHILS % 0.8 % (0.0-6.0); HEMATOCRIT 39.3 % (34.2-44.1); HEMOGLOBIN 12.1 g/dL (12.0-16.0); LYMPHOCYTES # (AUTO) 0.9 (1.0-3.2); LYMPHOCYTES % 17.4 % (18.0-39.1); MEAN CORPUSCULAR HEMOGLOBIN 30.4 pg (28-32); MEAN CORPUSCULAR HGB CONC 30.8 g/dL (31-35); MEAN CORPUSCULAR VOLUME 98.7 fL (81-99); MONOCYTES # (AUTO) 0.5 (0.2-0.8); NEUTROPHILS # (AUTO) 3.6 (2.1-6.9); NEUTROPHILS % 71.2 % (38.7-80.0); PLATELET COUNT 167 x10e3/uL (140-360); RED BLOOD COUNT 3.98 x10e6/uL (3.6-5.1); RED CELL DISTRIBUTION WIDTH 13.2 % (11.7-14.4)
[2022-04-23 18:34] LABS: INR 1.15; PARTIAL THROMBOPLASTIN TIME 26.7 seconds (23.8-35.5); PROTHROMBIN TIME 15.7 seconds (11.9-14.5)
[2022-04-23 18:43] LABS: ALBUMIN 3.3 g/dL (3.5-5.0); ANION GAP 14.7 mmol/L (8-16); CALCIUM 8.6 mg/dL (8.4-10.2); CREATININE, SERUM 0.75 mg/dL (0.57-1.11); POTASSIUM 3.7 mmol/L (3.5-5.1)
[2022-04-23] MEDS ORDERED: ONDANSETRON HCL INJ 2MG/ML 2ML 2 MG/ML VIAL IV PRN (20:30)
[2022-04-24] MEDS ORDERED: ACETAMINOPHEN 325 MG TAB PO PRN (04:30)
[2022-04-24] MEDS ORDERED: ACETAMINOPHEN 325 MG TAB ONE (04:35)
[2022-04-24 07:49] LABS: EOSINOPHILS % 0.3 % (0.0-6.0); HEMATOCRIT 39.8 % (34.2-44.1); HEMOGLOBIN 12.6 g/dL (12.0-16.0); LYMPHOCYTES # (AUTO) 0.5 (1.0-3.2); LYMPHOCYTES % 14.7 % (18.0-39.1); MEAN CORPUSCULAR HEMOGLOBIN 30.7 pg (28-32); MEAN CORPUSCULAR HGB CONC 31.7 g/dL (31-35); MEAN CORPUSCULAR VOLUME 96.8 fL (81-99); MONOCYTES # (AUTO) 0.1 (0.2-0.8); MONOCYTES % 3.1 % (4.4-11.3); NEUTROPHILS # (AUTO) 2.6 (2.1-6.9); PLATELET COUNT 168 x10e3/uL (140-360); RED BLOOD COUNT 4.11 x10e6/uL (3.6-5.1); RED CELL DISTRIBUTION WIDTH 13.2 % (11.7-14.4)
[2022-04-24 08:03] LABS: ANION GAP 16.1 mmol/L (8-16); CREATININE, SERUM 0.78 mg/dL (0.57-1.11); POTASSIUM 4.1 mmol/L (3.5-5.1)
[2022-04-24] MEDS: ALBUTEROL/IPRATROPIUM 3 ML NEB NEB SCH ×2 (11:00→19:51)
[2022-04-24] MEDS ORDERED: ONDANSETRON HCL INJ 2MG/ML 2ML 2 MG/ML VIAL IV PRN (12:00)
[2022-04-24] MEDS ORDERED: OMEPRAZOLE 20 MG CAP PO SCH (12:15)
[2022-04-24] MEDS: METHYLPREDNISOLONE SOD SUCC 40 MG/ML VIAL 1ML IV SCH ×2 (12:20→21:14)
[2022-04-24] MEDS: Doxycycline IV 100 MG in SODIUM CHLORIDE 0.9% 100 ML IV SCH ×2 (12:30→23:34)
[2022-04-24] MEDS ORDERED: PANTOPRAZOLE SO40 MG PO (14:59)
[2022-04-24] MEDS ORDERED: DIGOXIN125 MCG PO (14:59)
[2022-04-24] MEDS ORDERED: XARELTO10 MG PO (15:01)
[2022-04-24] MEDS ORDERED: SIMVASTATIN20 MG PO (15:01)
[2022-04-24 15:13] VITALS: BP 141/87
[2022-04-24 15:21] VITALS: BP 141/87
[2022-04-24] MEDS: SILDENAFIL CITRATE 20 MG TAB PO SCH (17:41)
[2022-04-24] MEDS: PANTOPRAZOLE SOD 40 MG TABEC PO SCH (17:41)
[2022-04-24] MEDS: BUDESONIDE/FORMOTEROL 160/4.5MCG INHALER INH SCH (19:00)
[2022-04-24 20:00] VITALS: BP 111/65
[2022-04-24] MEDS: SIMVASTATIN 20 MG TAB PO SCH (21:14)
[2022-04-24] MEDS: ACETAMINOPHEN/CODEINE 300MG - 30MG TAB PO PRN (21:20)
[2022-04-24] MEDS ORDERED: SODIUM CHLORIDE 0.9% 250ML 250 ML ONE (23:41)
[2022-04-24 23:53] VITALS: BP 118/71
[2022-04-25] MEDS: ALBUTEROL/IPRATROPIUM 3 ML NEB NEB SCH ×4 (00:01→19:33)
[2022-04-25 04:10] VITALS: BP 139/76
[2022-04-25] MEDS: BUDESONIDE/FORMOTEROL 160/4.5MCG INHALER INH SCH ×2 (06:19→18:54)
[2022-04-25 08:19] VITALS: BP 137/85
[2022-04-25 08:26] VITALS: BP 132/85
[2022-04-25] MEDS: METHYLPREDNISOLONE SOD SUCC 40 MG/ML VIAL 1ML IV SCH (09:12)
[2022-04-25] MEDS: RIVAROXABAN 15 MG TABLET PO SCH (09:13)
[2022-04-25] MEDS: FUROSEMIDE 40 MG TAB PO SCH (09:13)
[2022-04-25] MEDS: PANTOPRAZOLE SOD 40 MG TABEC PO SCH ×2 (09:13→17:10)
[2022-04-25] MEDS: SILDENAFIL CITRATE 20 MG TAB PO SCH ×2 (09:14→17:11)
[2022-04-25] MEDS: DIGOXIN 0.125 MG TAB PO SCH (09:14)
[2022-04-25] MEDS: Doxycycline IV 100 MG in SODIUM CHLORIDE 0.9% 100 ML IV SCH (11:57)
[2022-04-25 12:33] VITALS: BP 115/71
[2022-04-25 16:00] VITALS: BP 118/63
[2022-04-25] MEDS: ACETAMINOPHEN/CODEINE 300MG - 30MG TAB PO PRN (16:12)
[2022-04-25 20:00] VITALS: BP 147/67
[2022-04-25] MEDS: SIMVASTATIN 20 MG TAB PO SCH (22:13)
[2022-04-26] VITALS (7 sets, daily range): BP systolic 104–132; BP diastolic 56–81
[2022-04-26] MEDS: ALBUTEROL/IPRATROPIUM 3 ML NEB NEB SCH ×4 (01:00→19:15)
[2022-04-26] MEDS: BUDESONIDE/FORMOTEROL 160/4.5MCG INHALER INH SCH ×2 (06:58→19:15)
[2022-04-26 07:05] LABS: ANION GAP 12.5 mmol/L (8-16); CALCIUM 8.5 mg/dL (8.4-10.2); CREATININE, SERUM 0.72 mg/dL (0.57-1.11); POTASSIUM 3.5 mmol/L (3.5-5.1)
[2022-04-26] MEDS: PREDNISONE 20 MG TAB PO SCH (08:40)
[2022-04-26] MEDS: PANTOPRAZOLE SOD 40 MG TABEC PO SCH ×2 (08:41→16:50)
[2022-04-26] MEDS: SILDENAFIL CITRATE 20 MG TAB PO SCH ×2 (08:41→16:50)
[2022-04-26] MEDS: RIVAROXABAN 15 MG TABLET PO SCH (08:41)
[2022-04-26] MEDS: FUROSEMIDE 40 MG TAB PO SCH (08:41)
[2022-04-26] MEDS: DIGOXIN 0.125 MG TAB PO SCH (08:41)
[2022-04-26] MEDS: Doxycycline IV 100 MG in SODIUM CHLORIDE 0.9% 100 ML IV SCH ×4 (11:06→23:10)
[2022-04-26] MEDS: ACETAMINOPHEN/CODEINE 300MG - 30MG TAB PO PRN (12:28)
[2022-04-26] MEDS: SIMVASTATIN 20 MG TAB PO SCH (21:32)
[2022-04-27] VITALS (7 sets, daily range): BP systolic 119–130; BP diastolic 58–87
[2022-04-27] MEDS: ALBUTEROL/IPRATROPIUM 3 ML NEB NEB SCH ×4 (01:01→19:18)
[2022-04-27 05:42] LABS: EOSINOPHILS % 0.1 % (0.0-6.0); HEMATOCRIT 35.2 % (34.2-44.1); HEMOGLOBIN 10.7 g/dL (12.0-16.0); LYMPHOCYTES # (AUTO) 1.1 (1.0-3.2); LYMPHOCYTES % 14.5 % (18.0-39.1); MEAN CORPUSCULAR HEMOGLOBIN 29.9 pg (28-32); MEAN CORPUSCULAR HGB CONC 30.4 g/dL (31-35); MEAN CORPUSCULAR VOLUME 98.3 fL (81-99); MONOCYTES # (AUTO) 0.8 (0.2-0.8); MONOCYTES % 11.3 % (4.4-11.3); NEUTROPHILS # (AUTO) 5.4 (2.1-6.9); NEUTROPHILS % 73.8 % (38.7-80.0); PLATELET COUNT 152 x10e3/uL (140-360); RED BLOOD COUNT 3.58 x10e6/uL (3.6-5.1); RED CELL DISTRIBUTION WIDTH 13.1 % (11.7-14.4)
[2022-04-27 06:04] LABS: ALBUMIN/GLOBULIN RATIO 1.1 (0.8-2.0); ANION GAP 12.6 mmol/L (8-16); CALCIUM 8.3 mg/dL (8.4-10.2); CREATININE, SERUM 0.72 mg/dL (0.57-1.11); MAGNESIUM 1.4 MG/DL (1.3-2.1); POTASSIUM 3.6 mmol/L (3.5-5.1)
[2022-04-27] MEDS: BUDESONIDE/FORMOTEROL 160/4.5MCG INHALER INH SCH ×2 (06:32→19:30)
[2022-04-27] MEDS: RIVAROXABAN 15 MG TABLET PO SCH (08:15)
[2022-04-27] MEDS: SILDENAFIL CITRATE 20 MG TAB PO SCH ×2 (08:16→16:39)
[2022-04-27] MEDS: PREDNISONE 20 MG TAB PO SCH (08:16)
[2022-04-27] MEDS: PANTOPRAZOLE SOD 40 MG TABEC PO SCH ×2 (08:16→16:38)
[2022-04-27] MEDS: DIGOXIN 0.125 MG TAB PO SCH (08:16)
[2022-04-27] MEDS: FUROSEMIDE 40 MG TAB PO SCH (08:16)
[2022-04-27] MEDS: Doxycycline IV 100 MG in SODIUM CHLORIDE 0.9% 100 ML IV SCH ×2 (11:49→23:59)
[2022-04-27] MEDS: ACETAMINOPHEN/CODEINE 300MG - 30MG TAB PO PRN ×2 (16:42→22:07)
[2022-04-27] MEDS: SIMVASTATIN 20 MG TAB PO SCH (20:17)
[2022-04-28] VITALS (9 sets, daily range): BP systolic 101–151; BP diastolic 62–88
[2022-04-28] MEDS: ALBUTEROL/IPRATROPIUM 3 ML NEB NEB SCH ×5 (01:00→19:52)
[2022-04-28] MEDS: BUDESONIDE/FORMOTEROL 160/4.5MCG INHALER INH SCH ×2 (07:25→19:52)
[2022-04-28] MEDS: PREDNISONE 20 MG TAB PO SCH (08:35)
[2022-04-28] MEDS: PANTOPRAZOLE SOD 40 MG TABEC PO SCH ×2 (08:39→16:57)
[2022-04-28] MEDS: DIGOXIN 0.125 MG TAB PO SCH (08:39)
[2022-04-28] MEDS: FUROSEMIDE 40 MG TAB PO SCH (08:39)
[2022-04-28] MEDS: RIVAROXABAN 15 MG TABLET PO SCH (08:40)
[2022-04-28] MEDS: SILDENAFIL CITRATE 20 MG TAB PO SCH ×2 (08:40→16:58)
[2022-04-28] MEDS: Doxycycline IV 100 MG in SODIUM CHLORIDE 0.9% 100 ML IV SCH ×2 (12:53→23:47)
[2022-04-28] MEDS: ACETAMINOPHEN/CODEINE 300MG - 30MG TAB PO PRN (17:49)
[2022-04-28] MEDS: SIMVASTATIN 20 MG TAB PO SCH (21:00)
[2022-04-29] MEDS: ALBUTEROL/IPRATROPIUM 3 ML NEB NEB SCH ×3 (00:02→12:40)
[2022-04-29 04:00] VITALS: BP 131/68
[2022-04-29] MEDS: BUDESONIDE/FORMOTEROL 160/4.5MCG INHALER INH SCH (06:30)
[2022-04-29 08:28] VITALS: BP 145/85
[2022-04-29] MEDS: PREDNISONE 20 MG TAB PO SCH (09:26)
[2022-04-29] MEDS: FUROSEMIDE 40 MG TAB PO SCH (09:27)
[2022-04-29] MEDS: DIGOXIN 0.125 MG TAB PO SCH (09:27)
[2022-04-29] MEDS: RIVAROXABAN 15 MG TABLET PO SCH (09:27)
[2022-04-29] MEDS: PANTOPRAZOLE SOD 40 MG TABEC PO SCH (09:27)
[2022-04-29] MEDS: SILDENAFIL CITRATE 20 MG TAB PO SCH (09:28)
[2022-04-29 11:54] VITALS: BP 134/72
[2022-04-29] MEDS: Doxycycline IV 100 MG in SODIUM CHLORIDE 0.9% 100 ML IV SCH ×2 (12:00→12:45)
[2022-04-29 15:44] VITALS: BP 108/68
== END 2022-04-29 16:12 | disposition home or self-care (01) | DRG 196 ==
LOC: ER 18:00 → INTOOBSV 20:28 → ERHOLD 20:28 → MED/SURG3 04-24 14:22 → OBSVTOIN 04-25 12:19
PROVIDERS: ADMIT Family Medicine; ATTEND Family Medicine
DX: J84.112 Idiopathic pulmonary fibrosis (principal); J96.21 Acute and chronic respiratory failure with hypoxia; J44.1 Chronic obstructive pulmonary disease with (acute) exacerbation; I27.20 Pulmonary hypertension, unspecified; I11.0 Hypertensive heart disease with heart failure; I50.9 Heart failure, unspecified; Z87.891 Personal history of nicotine dependence; I25.10 Atherosclerotic heart disease of native coronary artery without angina pectoris; Z95.1 Presence of aortocoronary bypass graft
CPT/HCPCS: 36415; 71045; 80048; 80053; 83735; 83880; 84484; 85025; 85610; 85730; 93005; 94640; 94664; 94799; 99285; G0378; J2405; J2920; J2930; J7050; J7512

== ENCOUNTER 2022-06-16 10:44 | Inpatient (IN) | payer MEDICARE ==
[~2022-06-16] VITALS: Ht 167.6 cm; Wt 45.4 kg
[~2022-06-16 10:44] MED LIST changes: +DIGOXIN125 MCG PO; +PANTOPRAZOLE SO40 MG PO; +XARELTO10 MG PO
[2022-06-16] MEDS ORDERED: ASPIRIN 81 MG CHEW TAB PO ONE (11:00)
[2022-06-16 11:58] LABS: ALBUMIN 3.6 g/dL (3.5-5.0); ALBUMIN/GLOBULIN RATIO 1.4 (0.8-2.0); ANION GAP 17.9 mmol/L (8-16); CALCIUM 8.9 mg/dL (8.4-10.2); CREATININE, SERUM 0.69 mg/dL (0.57-1.11); POTASSIUM 3.9 mmol/L (3.5-5.1)
[2022-06-16 12:04] LABS: CREATINE KINASE MB 4.3 ng/mL (0-5.0)
[2022-06-16 12:08] LABS: BASOPHILS % 0.1 % (0.0-1.0); EOSINOPHILS % 0.1 % (0.0-6.0); HEMATOCRIT 40.3 % (34.2-44.1); HEMOGLOBIN 12.4 g/dL (12.0-16.0); LYMPHOCYTES % 12.6 % (18.0-39.1); MEAN CORPUSCULAR HEMOGLOBIN 30.1 pg (28-32); MEAN CORPUSCULAR HGB CONC 30.8 g/dL (31-35); MEAN CORPUSCULAR VOLUME 97.8 fL (81-99); MONOCYTES # (AUTO) 0.5 (0.2-0.8); MONOCYTES % 5.8 % (4.4-11.3); NEUTROPHILS # (AUTO) 6.6 (2.1-6.9); PLATELET COUNT 150 x10e3/uL (140-360); RED BLOOD COUNT 4.12 x10e6/uL (3.6-5.1); RED CELL DISTRIBUTION WIDTH 13.3 % (11.7-14.4)
[2022-06-16 13:15] LABS: AMPHETAMINES SCREEN,URINE NEGATIVE (NEGATIVE); BENZODIAZEPINES SCREEN,URINE NEGATIVE (NEGATIVE); PHENCYCLIDINE SCREEN,URINE NEGATIVE (NEGATIVE)
[2022-06-16] MEDS ORDERED: Morphine 4mg INJECTION 4 MG/ML INJ IV PRN (13:30)
[2022-06-16] MEDS ORDERED: ONDANSETRON HCL INJ 2MG/ML 2ML 2 MG/ML VIAL IV PRN (13:30)
[2022-06-16] MEDS: ACETAMINOPHEN 325 MG TAB PO PRN (14:22)
[2022-06-16] MEDS ORDERED: ACETAMINOPHEN 325 MG TAB ONE (14:22)
[2022-06-16 19:57] LABS: CREATINE KINASE MB 4.9 ng/mL (0-5.0)
[2022-06-16 22:35] VITALS: BP 129/82
[2022-06-16] MEDS ORDERED: BUDESONIDE/FORMOTEROL 160/4.5MCG INHALER INH SCH (23:30)
[2022-06-16] MEDS: ALBUTEROL/IPRATROPIUM 3 ML NEB NEB SCH (23:40)
[2022-06-17] VITALS (9 sets, daily range): BP systolic 115–146; BP diastolic 51–82
[2022-06-17] MEDS: SILDENAFIL CITRATE 20 MG TAB PO SCH ×3 (00:28→16:37)
[2022-06-17] MEDS: ACETAMINOPHEN 325 MG TAB PO PRN (00:30)
[2022-06-17 05:11] LABS: BASOPHILS % 0.1 % (0.0-1.0); EOSINOPHILS # (AUTO) 0.1 (0.0-0.4); EOSINOPHILS % 0.8 % (0.0-6.0); HEMATOCRIT 35.4 % (34.2-44.1); HEMOGLOBIN 11.1 g/dL (12.0-16.0); LYMPHOCYTES # (AUTO) 1.3 (1.0-3.2); MEAN CORPUSCULAR HEMOGLOBIN 30.2 pg (28-32); MEAN CORPUSCULAR HGB CONC 31.4 g/dL (31-35); MEAN CORPUSCULAR VOLUME 96.5 fL (81-99); MONOCYTES # (AUTO) 0.6 (0.2-0.8); MONOCYTES % 7.2 % (4.4-11.3); NEUTROPHILS # (AUTO) 5.9 (2.1-6.9); NEUTROPHILS % 74.4 % (38.7-80.0); PLATELET COUNT 139 x10e3/uL (140-360); RED BLOOD COUNT 3.67 x10e6/uL (3.6-5.1); RED CELL DISTRIBUTION WIDTH 13.1 % (11.7-14.4)
[2022-06-17 05:56] LABS: CREATINE KINASE MB 4.8 ng/mL (0-5.0)
[2022-06-17] MEDS: ALBUTEROL/IPRATROPIUM 3 ML NEB NEB SCH ×3 (08:05→20:20)
[2022-06-17] MEDS: BUDESONIDE/FORMOTEROL 160/4.5MCG INHALER INH SCH ×2 (08:15→20:20)
[2022-06-17 14:27] LABS: CREATINE KINASE MB 5.2 ng/mL (0-5.0)
[2022-06-17] MEDS: PANTOPRAZOLE SOD 40 MG TABEC PO SCH (15:21)
[2022-06-17] MEDS: METHYLPREDNISOLONE SOD SUCC 40 MG/ML VIAL 1ML IV SCH (15:21)
[2022-06-17] MEDS ORDERED: ACETAZOLAMIDE 250 MG TAB PO NR (15:45)
[2022-06-17] MEDS: ACETAMINOPHEN/CODEINE 300MG - 30MG TAB PO PRN (15:45)
[2022-06-17 16:56] LABS: ABG HCO3 39 mmol/L (22-26); ABG PCO2 59 mmHg (35-45); ABG PH 7.43 (7.35-7.45); ABG PO2 168 mmHg (80-105); ABG TCO2 41
[2022-06-17] MEDS: ACETYLCYSTEINE 200 MG/ML 4ML VIAL INH SCH (20:20)
[2022-06-17] MEDS: SIMVASTATIN 20 MG TAB PO SCH (20:39)
[2022-06-17] MEDS ORDERED: SIMVASTATIN 20 MG TAB PO SCH (21:00)
[2022-06-18] VITALS (7 sets, daily range): BP systolic 126–146; BP diastolic 63–87
[2022-06-18] MEDS: ALBUTEROL/IPRATROPIUM 3 ML NEB NEB SCH ×3 (09:10→20:55)
[2022-06-18] MEDS: ACETYLCYSTEINE 200 MG/ML 4ML VIAL INH SCH ×2 (09:10→20:55)
[2022-06-18] MEDS: RIVAROXABAN 15 MG TABLET PO SCH (09:22)
[2022-06-18] MEDS: PANTOPRAZOLE SOD 40 MG TABEC PO SCH ×2 (09:22→17:27)
[2022-06-18] MEDS: BALSAM PERU/CASTOR OIL 60 GM OINT...G. TP SCH (09:23)
[2022-06-18] MEDS: SILDENAFIL CITRATE 20 MG TAB PO SCH ×2 (09:23→17:27)
[2022-06-18] MEDS: DIGOXIN 0.125 MG TAB PO SCH (09:23)
[2022-06-18] MEDS: METHYLPREDNISOLONE SOD SUCC 40 MG/ML VIAL 1ML IV SCH (09:23)
[2022-06-18] MEDS: BUDESONIDE/FORMOTEROL 160/4.5MCG INHALER INH SCH ×2 (09:30→20:55)
[2022-06-18] MEDS: AZITHROMYCIN 250 MG TAB PO SCH (11:23)
[2022-06-18] MEDS: SIMVASTATIN 20 MG TAB PO SCH (23:10)
[2022-06-19] VITALS (7 sets, daily range): BP systolic 112–145; BP diastolic 66–86
[2022-06-19] MEDS: BUDESONIDE/FORMOTEROL 160/4.5MCG INHALER INH SCH ×2 (07:00→19:25)
[2022-06-19] MEDS: ACETYLCYSTEINE 200 MG/ML 4ML VIAL INH SCH ×2 (07:00→19:10)
[2022-06-19] MEDS: ALBUTEROL/IPRATROPIUM 3 ML NEB NEB SCH ×3 (07:00→19:10)
[2022-06-19] MEDS: PANTOPRAZOLE SOD 40 MG TABEC PO SCH ×2 (08:03→16:28)
[2022-06-19] MEDS: DIGOXIN 0.125 MG TAB PO SCH (08:03)
[2022-06-19] MEDS: AZITHROMYCIN 250 MG TAB PO SCH (08:03)
[2022-06-19] MEDS: METHYLPREDNISOLONE SOD SUCC 40 MG/ML VIAL 1ML IV SCH (08:03)
[2022-06-19] MEDS: RIVAROXABAN 15 MG TABLET PO SCH (08:03)
[2022-06-19] MEDS: BALSAM PERU/CASTOR OIL 60 GM OINT...G. TP SCH (08:04)
[2022-06-19] MEDS: SILDENAFIL CITRATE 20 MG TAB PO SCH ×2 (08:04→16:28)
[2022-06-19] MEDS: SIMVASTATIN 20 MG TAB PO SCH (21:32)
[2022-06-19] MEDS: ACETAMINOPHEN/CODEINE 300MG - 30MG TAB PO PRN (21:37)
[2022-06-20] VITALS (7 sets, daily range): BP systolic 105–140; BP diastolic 64–81
[2022-06-20] MEDS: BUDESONIDE/FORMOTEROL 160/4.5MCG INHALER INH SCH ×2 (08:10→19:15)
[2022-06-20] MEDS: ALBUTEROL/IPRATROPIUM 3 ML NEB NEB SCH ×3 (08:10→19:15)
[2022-06-20] MEDS: ACETYLCYSTEINE 200 MG/ML 4ML VIAL INH SCH ×2 (08:10→19:15)
[2022-06-20] MEDS: RIVAROXABAN 15 MG TABLET PO SCH (08:28)
[2022-06-20] MEDS: PANTOPRAZOLE SOD 40 MG TABEC PO SCH ×2 (08:28→16:56)
[2022-06-20] MEDS: AZITHROMYCIN 250 MG TAB PO SCH (08:28)
[2022-06-20] MEDS: SILDENAFIL CITRATE 20 MG TAB PO SCH ×2 (08:28→16:56)
[2022-06-20] MEDS: METHYLPREDNISOLONE SOD SUCC 40 MG/ML VIAL 1ML IV SCH (08:28)
[2022-06-20] MEDS: DIGOXIN 0.125 MG TAB PO SCH (08:28)
[2022-06-20] MEDS: BALSAM PERU/CASTOR OIL 60 GM OINT...G. TP SCH (09:00)
[2022-06-20] MEDS: ONDANSETRON HCL 4 MG ORAL DISINTEGRATING TAB PO PRN (17:00)
[2022-06-20] MEDS: ACETAMINOPHEN/CODEINE 300MG - 30MG TAB PO PRN (17:01)
[2022-06-20] MEDS: SIMVASTATIN 20 MG TAB PO SCH (21:53)
[2022-06-21] VITALS (7 sets, daily range): BP systolic 140–161; BP diastolic 68–92
[2022-06-21] MEDS: ALBUTEROL/IPRATROPIUM 3 ML NEB NEB SCH ×3 (06:44→19:50)
[2022-06-21] MEDS: BUDESONIDE/FORMOTEROL 160/4.5MCG INHALER INH SCH ×2 (06:44→19:50)
[2022-06-21] MEDS: ACETYLCYSTEINE 200 MG/ML 4ML VIAL INH SCH ×2 (06:44→19:50)
[2022-06-21] MEDS: DIGOXIN 0.125 MG TAB PO SCH (09:01)
[2022-06-21] MEDS: PANTOPRAZOLE SOD 40 MG TABEC PO SCH ×2 (09:01→16:33)
[2022-06-21] MEDS: AZITHROMYCIN 250 MG TAB PO SCH (09:01)
[2022-06-21] MEDS: RIVAROXABAN 15 MG TABLET PO SCH (09:01)
[2022-06-21] MEDS: METHYLPREDNISOLONE SOD SUCC 40 MG/ML VIAL 1ML IV SCH (09:01)
[2022-06-21] MEDS: SILDENAFIL CITRATE 20 MG TAB PO SCH ×2 (09:01→16:33)
[2022-06-21] MEDS: BALSAM PERU/CASTOR OIL 60 GM OINT...G. TP SCH (09:03)
[2022-06-21] MEDS: ONDANSETRON HCL 4 MG ORAL DISINTEGRATING TAB PO PRN ×2 (11:00→20:50)
[2022-06-21] MEDS: SUCRALFATE 1 GM/10 ML SUSP NG SCH ×3 (11:30→20:46)
[2022-06-21] MEDS: SIMVASTATIN 20 MG TAB PO SCH (20:46)
[2022-06-22] VITALS (8 sets, daily range): BP systolic 138–166; BP diastolic 76–86
[2022-06-22 04:54] LABS: BASOPHILS % 0.2 % (0.0-1.0); HEMATOCRIT 35.6 % (34.2-44.1); HEMOGLOBIN 11.3 g/dL (12.0-16.0); LYMPHOCYTES # (AUTO) 0.9 (1.0-3.2); LYMPHOCYTES % 8.9 % (18.0-39.1); MEAN CORPUSCULAR HEMOGLOBIN 30.5 pg (28-32); MEAN CORPUSCULAR HGB CONC 31.7 g/dL (31-35); MEAN CORPUSCULAR VOLUME 96.2 fL (81-99); MONOCYTES # (AUTO) 0.7 (0.2-0.8); MONOCYTES % 6.9 % (4.4-11.3); NEUTROPHILS # (AUTO) 8.5 (2.1-6.9); NEUTROPHILS % 83.3 % (38.7-80.0); PLATELET COUNT 153 x10e3/uL (140-360); RED CELL DISTRIBUTION WIDTH 13.7 % (11.7-14.4)
[2022-06-22 05:20] LABS: ALBUMIN 3.2 g/dL (3.5-5.0); ALBUMIN/GLOBULIN RATIO 1.3 (0.8-2.0); CALCIUM 8.9 mg/dL (8.4-10.2); CREATININE, SERUM 0.62 mg/dL (0.57-1.11)
[2022-06-22] MEDS: ACETYLCYSTEINE 200 MG/ML 4ML VIAL INH SCH ×2 (06:44→20:43)
[2022-06-22] MEDS: BUDESONIDE/FORMOTEROL 160/4.5MCG INHALER INH SCH ×2 (06:44→19:30)
[2022-06-22] MEDS: ALBUTEROL/IPRATROPIUM 3 ML NEB NEB SCH ×3 (06:44→19:20)
[2022-06-22] MEDS: SUCRALFATE 1 GM/10 ML SUSP NG SCH ×4 (07:30→21:00)
[2022-06-22] MEDS: SILDENAFIL CITRATE 20 MG TAB PO SCH ×2 (08:55→16:33)
[2022-06-22] MEDS: AZITHROMYCIN 250 MG TAB PO SCH (08:55)
[2022-06-22] MEDS: DIGOXIN 0.125 MG TAB PO SCH (08:55)
[2022-06-22] MEDS: PANTOPRAZOLE SOD 40 MG TABEC PO SCH ×2 (08:55→16:33)
[2022-06-22] MEDS: METHYLPREDNISOLONE SOD SUCC 40 MG/ML VIAL 1ML IV SCH ×2 (08:56→20:50)
[2022-06-22] MEDS: RIVAROXABAN 15 MG TABLET PO SCH (08:56)
[2022-06-22] MEDS: BALSAM PERU/CASTOR OIL 60 GM OINT...G. TP SCH (09:02)
[2022-06-22] MEDS: SIMVASTATIN 20 MG TAB PO SCH (20:50)
[2022-06-22] MEDS: ACETAMINOPHEN/CODEINE 300MG - 30MG TAB PO PRN (22:08)
[2022-06-23] VITALS: BP 113/60
[2022-06-23 04:00] VITALS: BP 126/77
[2022-06-23] MEDS: SUCRALFATE 1 GM/10 ML SUSP NG SCH ×4 (07:30→20:38)
[2022-06-23 08:24] VITALS: BP 122/96
[2022-06-23 08:40] VITALS: BP 122/96
[2022-06-23] MEDS: ACETYLCYSTEINE 200 MG/ML 4ML VIAL INH SCH ×2 (09:00→20:10)
[2022-06-23] MEDS: ALBUTEROL/IPRATROPIUM 3 ML NEB NEB SCH ×3 (09:00→20:10)
[2022-06-23] MEDS: BUDESONIDE/FORMOTEROL 160/4.5MCG INHALER INH SCH ×2 (09:30→20:39)
[2022-06-23] MEDS: AZITHROMYCIN 250 MG TAB PO SCH (09:53)
[2022-06-23] MEDS: METHYLPREDNISOLONE SOD SUCC 40 MG/ML VIAL 1ML IV SCH ×2 (09:53→20:39)
[2022-06-23] MEDS: SILDENAFIL CITRATE 20 MG TAB PO SCH ×2 (09:53→17:25)
[2022-06-23] MEDS: PANTOPRAZOLE SOD 40 MG TABEC PO SCH ×2 (09:53→17:25)
[2022-06-23] MEDS: BALSAM PERU/CASTOR OIL 60 GM OINT...G. TP SCH (09:54)
[2022-06-23] MEDS: DIGOXIN 0.125 MG TAB PO SCH (09:54)
[2022-06-23] MEDS: RIVAROXABAN 15 MG TABLET PO SCH (09:54)
[2022-06-23 16:29] VITALS: BP 128/54
[2022-06-23 20:00] VITALS: BP 143/74
[2022-06-23] MEDS: SIMVASTATIN 20 MG TAB PO SCH (20:38)
[2022-06-23] MEDS: ACETAMINOPHEN/CODEINE 300MG - 30MG TAB PO PRN (20:42)
[2022-06-24] VITALS: BP 139/71
[2022-06-24 04:00] VITALS: BP 153/89
[2022-06-24] MEDS: SUCRALFATE 1 GM/10 ML SUSP NG SCH (07:30)
[2022-06-24 08:23] VITALS: BP 136/79
[2022-06-24] MEDS ORDERED: FUROSEMIDE 40 MG TAB PO SCH (09:00)
[2022-06-24] MEDS: AZITHROMYCIN 250 MG TAB PO SCH (09:58)
[2022-06-24] MEDS: DIGOXIN 0.125 MG TAB PO SCH (09:59)
[2022-06-24] MEDS: METHYLPREDNISOLONE SOD SUCC 40 MG/ML VIAL 1ML IV SCH (09:59)
[2022-06-24] MEDS: SILDENAFIL CITRATE 20 MG TAB PO SCH (09:59)
[2022-06-24] MEDS: PANTOPRAZOLE SOD 40 MG TABEC PO SCH (09:59)
[2022-06-24] MEDS: BALSAM PERU/CASTOR OIL 60 GM OINT...G. TP SCH (10:00)
[2022-06-24] MEDS: RIVAROXABAN 15 MG TABLET PO SCH (10:00)
[2022-06-24 11:30] VITALS: BP 124/91
== END 2022-06-24 12:04 | disposition home health service (06) | DRG 190 ==
LOC: ER 10:48 → ERHOLD 13:27 → MED/SURG 22:24 → OBSVTOIN 06-18 09:59
PROVIDERS: ADMIT Family Medicine; ATTEND Family Medicine
DX: J43.9 Emphysema, unspecified (principal); I50.33 Acute on chronic diastolic (congestive) heart failure; J18.9 Pneumonia, unspecified organism; J96.12 Chronic respiratory failure with hypercapnia; J96.11 Chronic respiratory failure with hypoxia; J84.10 Pulmonary fibrosis, unspecified; I11.0 Hypertensive heart disease with heart failure; I25.10 Atherosclerotic heart disease of native coronary artery without angina pectoris; Z95.0 Presence of cardiac pacemaker; Z88.2 Allergy status to sulfonamides; Z91.018 Allergy to other foods; F32.A Depression, unspecified; I27.20 Pulmonary hypertension, unspecified; I49.5 Sick sinus syndrome; M81.0 Age-related osteoporosis without current pathological fracture; Z87.891 Personal history of nicotine dependence; Z95.820 Peripheral vascular angioplasty status with implants and grafts; Z51.5 Encounter for palliative care; E78.00 Pure hypercholesterolemia, unspecified; D69.6 Thrombocytopenia, unspecified
CPT/HCPCS: 36415; 36600; 71045; 71250; 74230; 80053; 80307; 82550; 82553; 82805; 83690; 83880; 84484; 85025; 85379; 93005; 93306; 94640; 94660; 94664; 94799; 99251; 99284; G0378; J2270; J2405; J2920; Q0162

== ENCOUNTER 2022-06-25 19:19 | Emergency (ER) | payer MEDICARE, OTHER ==
[~2022-06-25] VITALS: Ht 167.6 cm; Wt 45.4 kg
[2022-06-25] MEDS ORDERED: ONDANSETRON HCL INJ 2MG/ML 2ML 2 MG/ML VIAL IV STA (19:24)
[2022-06-25 20:25] LABS: BASOPHILS % 0.1 % (0.0-1.0); EOSINOPHILS % 0.2 % (0.0-6.0); HEMOGLOBIN 13.7 g/dL (12.0-16.0); LYMPHOCYTES # (AUTO) 0.9 (1.0-3.2); LYMPHOCYTES % 7.4 % (18.0-39.1); MEAN CORPUSCULAR HEMOGLOBIN 30.2 pg (28-32); MEAN CORPUSCULAR HGB CONC 31.1 g/dL (31-35); MEAN CORPUSCULAR VOLUME 96.9 fL (81-99); MONOCYTES # (AUTO) 0.6 (0.2-0.8); MONOCYTES % 4.8 % (4.4-11.3); NEUTROPHILS # (AUTO) 10.4 (2.1-6.9); NEUTROPHILS % 86.2 % (38.7-80.0); PLATELET COUNT 208 x10e3/uL (140-360); RED BLOOD COUNT 4.54 x10e6/uL (3.6-5.1); RED CELL DISTRIBUTION WIDTH 13.6 % (11.7-14.4)
[2022-06-25 20:58] LABS: INR 2.17; PROTHROMBIN TIME 25.8 seconds (11.9-14.5)
[2022-06-25 20:59] LABS: PARTIAL THROMBOPLASTIN TIME 28.9 seconds (23.8-35.5)
[2022-06-25 21:07] LABS: ALBUMIN 3.7 g/dL (3.5-5.0); ALBUMIN/GLOBULIN RATIO 1.4 (0.8-2.0); ANION GAP 17.2 mmol/L (8-16); CALCIUM 9.3 mg/dL (8.4-10.2); CREATININE, SERUM 0.75 mg/dL (0.57-1.11); POTASSIUM 4.2 mmol/L (3.5-5.1)
[2022-06-25 21:12] LABS: CREATINE KINASE MB 7.4 ng/mL (0-5.0)
[2022-06-25 21:59] LABS: INFLUENZAE A&B ANTIGEN (RAPID) NEGATIVE (NEGATIVE)
[2022-06-25 22:06] LABS: RESPIRATORY SYNC. VIRUS NEGATIVE (NEGATIVE)
[2022-06-25 22:10] LABS: CLARITY,URINE CLEAR (CLEAR); COLOR,URINE YELLOW (YELLOW)
[2022-06-25 22:11] LABS: KETONES,URINE NEGATIVE (NEGATIVE); LEUKOCYTE ESTERASE ,URINE SMALL (NEGATIVE); NITRITE,URINE NEGATIVE (NEGATIVE); PROTEIN,URINE DIPSTICK NEGATIVE (NEGATIVE); URINE UROBILINOGEN 0.2 mg/dL (0.2 - 1)
[2022-06-25 22:17] LABS: BACTERIA,URINE FEW /HPF; EPITHELIAL CELLS,URINE RARE /LPF; RBC,URINE 0-5 /HPF (0-5)
[2022-06-25] MEDS ORDERED: Morphine 2mg Syringe 2 MG/ML SYR IV ONE ×2 (22:30→23:45)
[2022-06-25] MEDS ORDERED: ONDANSETRON HCL INJ 2MG/ML 2ML 2 MG/ML VIAL ONE (23:11)
[2022-06-25 23:56] VITALS: BP 143/96
== END 2022-06-25 23:59 | disposition other institution (70) ==
LOC: ER 19:27
DX: S12.190A Other displaced fracture of second cervical vertebra, initial encounter for closed fracture (principal); S22.088A Other fracture of T11-T12 vertebra, initial encounter for closed fracture; S32.592A Other specified fracture of left pubis, initial encounter for closed fracture; S32.591A Other specified fracture of right pubis, initial encounter for closed fracture; W01.0XXA Fall on same level from slipping, tripping and stumbling without subsequent striking against object, initial encounter; Y93.01 Activity, walking, marching and hiking; Y92.89 Other specified places as the place of occurrence of the external cause; I10 Essential (primary) hypertension; J44.9 Chronic obstructive pulmonary disease, unspecified; I50.9 Heart failure, unspecified; I48.91 Unspecified atrial fibrillation; I25.10 Atherosclerotic heart disease of native coronary artery without angina pectoris; K21.9 Gastro-esophageal reflux disease without esophagitis; Z20.822 Contact with and (suspected) exposure to COVID-19; Z95.810 Presence of automatic (implantable) cardiac defibrillator; Z95.1 Presence of aortocoronary bypass graft
CPT/HCPCS: 36415; 70450; 71045; 72125; 72128; 72131; 73521; 80053; 81001; 82550; 82553; 83605; 84484; 85025; 85610; 85730; 87040; 87400; 87420; 93005; 99285; J2270; J2405; U0002